=== PATIENT | female | born 1980 | race Caucasian/White ===

== ENCOUNTER 2023-07-05 07:13 | Outpatient (OUT) | payer OTHER, SELFPAY ==
--- NOTE | 2023-07-05 07:15 | MM_ITS ---
Patient Name: BRANDON BENAVIDEZ MR#: [id number] : 1980 Exam Date: 07/05/2023 Ordering Doctor: [facility] REPORT PROCEDURE: MM TOMOSYNTHESIS SCREENING BI COMPARISON: MG MAMM LEANDRO DIAG W CAD, 01/04/2020. INDICATIONS: screening Calculator Name NCI Breast Cancer Risk Assessment Tool 5 Year Breast Cancer Risk 0.50% Lifetime Breast Cancer Risk 9.00% Personal Breast Cancer No Personal Ovarian Cancer No Treatments None Family Cancers Aunt-maternal with breast cancer at age ~42; Mother with lung cancer at age 52; Aunt-maternal with lung cancer at age 49. LOCATION: [facility] BREAST COMPOSITION: Heterogeneously dense,which may obscure small masses. FINDINGS: DIAGNOSTIC CATEGORY 2--BENIGN FINDING. NO CHANGE FROM COMPARISON. Scattered benign-appearing nodules are present. Scattered benign-appearing calcifications are present. Scattered benign-appearing lymph nodes are present. RIGHT BREAST: No significant suspicious finding. LEFT BREAST: No significant suspicious finding. RECOMMENDATIONS: ROUTINE MAMMOGRAM AND CLINICAL EVALUATION IN 12 MONTHS. PLEASE NOTE: A NORMAL MAMMOGRAM DOES NOT EXCLUDE THE POSSIBILITY OF BREAST CANCER. A CLINICALLY SUSPICIOUS PALPABLE LUMP SHOULD BE BIOPSIED. Dictated by: Florentin Bob MD on 07/05/2023 at 08:37 Approved by: Florentin Bob MD on 07/05/2023 at 08:38
== END 2023-07-05 07:14 | disposition home or self-care (01) ==
LOC: MAMMO 07:13
PROVIDERS: PCP Family Medicine; Visit Provider Family Medicine
DX: Z12.31 Encounter for screening mammogram for malignant neoplasm of breast (principal); Z80.3 Family history of malignant neoplasm of breast; Z80.1 Family history of malignant neoplasm of trachea, bronchus and lung
CPT/HCPCS: 77063; 77067

== ENCOUNTER 2023-08-05 19:11 | Emergency (ER) | payer OTHER, SELFPAY ==
[2023-08-05] VITALS (15 sets, daily range): BP systolic 122–150; BP diastolic 77–94; PULSE 72–99; TEMP 36.8; O2SAT 94–100; BMI 32.4
--- OUTSIDE RECORDS SUMMARY | 2023-08-05 19:24 | XMS_ITS | CCD ---
Author Organization [facility] Care Team Providers Care Transport Engineer Name Role Phone DR SUSAN US Attending Unavailable ABEBA, DR DAVIS Consulting Unavailable DR SUSAN US Admitting Unavailable FRIDA GARSIA Primary Care Unavailable MD Frida Garsia Primary Care Provider [phone] MD Steven Rose Attending Provider Frida Garsia MD Primary Care Provider [phone] Frida Garsia MD Unavailable [phone] FRIDA GARSIA Attending Unavailable FRIDA GARSIA Referring Unavailable MD Frida Garsia Attending Provider Steven Rose Attending Unavailable Frida Garsia Primary Care Unavailable Steven Rose Admitting Unavailable Frida Garsia Primary Care Unavailable Cheryle Day Admitting Unavailable Cheryle Day Attending Unavailable Frida Garsia Admitting Unavailable Frida Garsia Primary Care Unavailable Frida Garsia Attending Unavailable Frida Garsia MD Unavailable Frida Garsia MD Primary Care Provider CATHI DIANE Attending Unavailable FRIDA GARSIA Referring Unavailable FRIDA GARSIA Primary Care Unavailable Medications Current Medications Medication Drug Class(es) Dates Sig (Normalized) Sig (Original) hydroCHLOROthiazide 25 mg oral tablet (4 sources) Thiazide Diuretic Start: 3 take 1 tablet by mouth once daily in the morning hydroCHLOROthiazide (HYDRODiuril) 25 MG tablet Indications: Hypertension, unspecified type (CMS/HCC) TAKE 1 TABLET BY MOUTH EVERY DAY IN THE MORNING 30 tablet 11 10/24/2022 Active hydroCHLOROthiazide 12.5 mg / olmesartan medoxomil 20 mg oral tablet (2 sources) Thiazide Diuretic, Angiotensin 2 Receptor Paco Start: 4 take 1 tablet by mouth in the morning olmesartan-hydroCHLORO thiazide (Benicar HCT) 20-12.5 MG tablet Indications: Hypertension, unspecified type (CMS/HCC) Take 1 tablet by mouth in the morning. 90 tablet 3 06/15/2023 Active varenicline 1 mg oral tablet (4 sources) Partial Cholinergic Nicotinic Agonist Start: 4 take 0.5 tablet by mouth in the morning varenicline (Chantix) 1 MG tablet Indications: Tobacco abuse Take 0.5 tablets (0.5 mg) by mouth in the morning and 0.5 tablets (0.5 mg) before bedtime. Take with full glass of water.. 60 tablet 0 06/15/2023 Active Start: 06-15-2023 End: 2023 take 1 tablet by mouth in the morning varenicline (Chantix) 1 MG tablet Indications: Tobacco abuse Take 1 tablet (1 mg) by mouth in the morning and 1 tablet (1 mg) before bedtime. Take with full glass of water.. 60 tablet 1 06/15/2023 2023 Active Completed/Discontinued Medications Medication Drug Class(es) Dates Sig (Normalized) Sig (Original) acyclovir 0.05 mg/mg topical ointment (5 sources) Herpesvirus Nucleoside Analog DNA Polymerase Inhibitor, Herpes Simplex Virus Nucleoside Analog DNA Polymerase Inhibitor, Herpes Zoster Virus Nucleoside Analog DNA Polymerase Inhibitor Start: 03-01-2023 acyclovir (ZOVIRAX) 5 % ointment Apply to affected area as needed. 0 03/01/2023 Active Comment on above: Apply to affected ar ea as needed. aspirin 81 mg oral tablet (1 source) Platelet Aggregation Inhibitor, Nonsteroidal Anti-inflammatory Drug take 2 capsules by mouth once daily aspirin 81 mg cap Take 162 mg by mouth once daily. 0 Active Comment on above: Take 162 mg by mouth once daily. atorvastatin 40 mg oral tablet (1 source) HMG-CoA Reductase Inhibitor Start: 07-01-2023 take 1 tablet by mouth once daily in the morning atorvastatin (LIPITOR) 40 mg tablet Take 1 tablet by mouth every morning. 0 07/01/2023 Active Comment on above: Take 1 tablet by edward th every morning. dicyclomine hydrochloride 20 mg oral tablet (5 sources) Anticholinergic Start: 12-15-2022 dicyclomine (BENTYL) 20 mg tablet Take 20 mg by mouth as needed. 0 12/15/2022 Active Comment on above: Take 20 mg by mouth as needed. ibuprofen 800 mg oral tablet (5 sources) Nonsteroidal Anti-inflammatory Drug Start: 11-26-2022 ibuprofen (MOTRIN) 800 mg tablet Take 800 mg by mouth as needed. 0 11/26/2022 Active Comment on above: Take 800 mg by mouth as needed. LORazepam 1 mg oral tablet (5 sources) Benzodiazepine Start: 09-30-2021 LORazepam (ATIVAN) 1 mg tablet Take 1 mg by mouth as needed. 0 09/30/2021 Active Comment on above: Take 1 mg by mouth a s needed. valACYclovir 1000 mg oral tablet (5 sources) Herpesvirus Nucleoside Analog DNA Polymerase Inhibitor, Herpes Simplex Virus Nucleoside Analog DNA Polymerase Inhibitor, Herpes Zoster Virus Nucleoside Analog DNA Polymerase Inhibitor Start: 03-17-2023 valACYclovir (VALTREX) 1 gram tablet Take 1 tablet by mouth as needed. 0 03/17/2023 Active Comment on above: Take 1 tablet by edward th as needed. Problems Active Problems Problem Classification Problem Date Documented Da te Episodic/Chronic Administrative/social admission (2 sources) Counseling procedure with explicit context; Translations: [Tobacco abuse counseling] 06-15-2023 Episodic Anxiety disorders (4 sources) Anxiety; Translations: [Anxiety disorder, unspecified] Onset: 10-01-2022 10-01-2022 Chronic Chronic obstructive pulmonary disease and bronchiectasis (2 sources) Centriacinar emphysema; Translations: [Centrilobular emphysema] Onset: 08-02-2023 08-02-2023 Chronic Essential hypertension (8 sources) Hypertensive disorder; Translations: [Essential (primary) hypertension] Onset: 10-01-2022 10-01-2022 Chronic Immunizations and screening for infectious disease (1 source) Encounter for screening for human papillomavirus (HPV); Translations: [ENC SCREENING HUMAN PAPILLOMAVIRUS] Onset: 03-09-2022 Episodic Miscellaneous mental health disorders (4 sources) Primary insomnia; Translations: [Primary insomnia] Onset: 10-01-2022 10-01-2022 Chronic Mood disorders (2 sources) Depressive disorder; Translations: [Depression, unspecified depression type] Onset: 08-02-2023 08-02-2023 Chronic Occlusion or stenosis of precerebral arteries (4 sources) Left carotid artery occlusion; Translations: [Occlusion and stenosis of left carotid artery] Onset: 08-02-2023 07-14-2023 Chronic Other gastrointestinal disorders (1 source) Personal history of other diseases of the digestive system; Translations: [Personal history of other diseases of the digestive system] Onset: 04-09-2023 Episodic Other lower respiratory disease (6 sources) Dyspnea; Translations: [Shortness of breath] Onset: 10-01-2022 10-01-2022 Episodic Other lower respiratory disease (1 source) Shortness of breath; Translations: [Shortness of breath] Onset: 06-24-2023 Episodic Other nervous system disorders (4 sources) Chronic pain; Translations: [Other chronic pain] Onset: 10-01-2022 10-01-2022 Chronic Other nutritional; endocrine; and metabolic disorders (4 sources) Obese class I; Translations: [Obesity, unspecified] Onset: 10-01-2022 10-01-2022 Chronic Other screening for suspected conditions (not mental disorders or infectious disease) (5 sources) Encounter for screening for malignant neoplasm of cervix; Translations: [Abnormal findings on diagnostic imaging of other specified body structures] Onset: 03-06-2022 Episodic Other upper respiratory infections (4 sources) Chronic sinusitis; Translations: [Chronic sinusitis, unspecified] Onset: 10-01-2022 10-01-2022 Chronic Regional enteritis and ulcerative colitis (8 sources) Crohn's disease; Translations: [Crohn's disease, unspecified, with unspecified complications] Onset: 10-01-2022 10-01-2022 Chronic Residual codes; unclassified (6 sources) Family history of aneurysm of artery; Translations: [Family history of ischemic heart disease and other diseases of the circulatory system] Onset: 10-01-2022 10-01-2022 Episodic Residual codes; unclassified (4 sources) Tobacco user; Translations: [Tobacco use] Onset: 08-02-2023 06-15-2023 Episodic Past or Other Problems Problem Classification Problem Date Documented Da te Episodic/Chronic Mycoses (4 sources) Mycosis; Translations: [Candidiasis, unspecified] Onset: 10-01-2022 Resolved: 10-01-2022 10-01-2022 Episodic Other and unspecified benign neoplasm (4 sources) Tubular adenoma ; Translations: [Benign neoplasm, unspecified site] Onset: 10-01-2022 10-01-2022 Episodic Viral infection (4 sources) Genital warts; Translations: [Anogenital (venereal) warts] Onset: 10-01-2022 10-01-2022 Episodic Results Test Name Value Interpretation Reference Range Facility CNOVon 08-02-2023 CNOV Office Visit (VASSMN ) SOCORRO GARCIA ([id number]) 1980 F Date Time Provider Department 08/02/23 10:30 AM CATHI DIANE During your visit today, we recorded the following information about you: Temperature Pulse Respiration Blood pressure 98.1 degrees 78/minute 14/minute 134/88 Weight Height 80.2 kg 1.619 m Cathi Diane MD 08/02/2023 10:32 AM Addendum [facility] DEPARTMENT OF VASCULAR SURGERY OUTPATIENT VISIT DATE August 02, 2023 OUTPATIENT VISIT TYPE CONSULTATION SERVICE DATE: 08/02/2023 SERVICE TIME: 10:06 AM PRIMARY CARE PHYSICIAN: Frida Garsia MD, MD REFERRING PROVIDER: Frida Garsia MD ([facility]) [address] [place] [phone] Consult requested for an opinion regarding the evaluation and treatment of the above. My final impression and recommendations will be communicated back to the requesting physician by way of the shared medical record or letter via [place] mail. CHIEF COMPLAINT: left carotid occlusion HISTORY OF PRESENT ILLNESS: Vascular consultation at the request of Dr. Frida Garsia. A copy of this consultation note will be provided to the requesting physician by way of shared Medical record or letter to requesting physician via US mail. Ms. Garcia is a 42 year old female who is seen today for Left carotid occlusion she has hypertension depression history of Crohn's disease.. She has a family history of brain aneurysms. And had difficulty control hypertension's her family doctor got a MRA of the head with contrast with this diagnosed a asymptomatic left internal carotid occlusion. She denies any strokes mini strokes or amaurosis fugax. She does have hypertension. She also is on a statin on 40 of Lipitor. PAST MEDICAL HISTORY Diagnosis Date Centrilobular emphysema (HCC) 08/02/2023 Crohn's disease without complication (HCC) 08/02/2023 Depression 08/02/2023 Left carotid artery occlusion 08/02/2023 Stenosis of right carotid artery 08/02/2023 Tobacco abuse 08/02/2023 PAST SURGICAL HISTORY Procedure Laterality Date PAST SURGICAL HISTORY OF 2015 hysterectom PAST SURGICAL HISTORY OF 2009 tonsillectomy and adenoids SOCIAL HISTORY: Social History Tobacco Use Smoking status: Former Packs/day: 1.00 Years: 28.00 Additional pack years: 0.00 Total pack years: 28.00 Types: Cigarettes Start date: 05/03/1995 Quit date: 07/02/2023 Years since quittin.0 Smokeless tobacco: Never Substance Use Topics Alcohol use: Yes Comment: socially Drug use: Not Currently Types: Marijuana FAMILY HISTORY Problem Relation Age of Onset other (htn) Brother FATHER BRAIN ANEURYSM MEDICATIONS: acyclovir (ZOVIRAX) 5 % ointment Apply to affected area as needed. atorvastatin (LIPITOR) 40 mg tablet Take 1 tablet by mouth every morning. dicyclomine (BENTYL) 20 mg tablet Take 20 mg by mouth as needed. ibuprofen (MOTRIN) 800 mg tablet Take 800 mg by mouth as needed. LORazepam (ATIVAN) 1 mg tablet Take 1 mg by mouth as needed. valACYclovir (VALTREX) 1 gram tablet Take 1 tablet by mouth as needed. aspirin 81 mg cap Take 162 mg by mouth once daily. ALLERGIES: ALLERGIES No Known Allergies REVIEW of SYSTEM: Constitutional: No weight loss, malaise or fevers. HEENT: Negative for frequent or significant headaches Respiratory: Negative for cough, wheezing, +shortness of breath Cardiovascular: Negative for chest pain, leg swelling or palpitations Gatrointestinal: Negative for abdominal discomfort, blood in stools or black stools or change in bowel habits Genitourinary: No history of dysuria, frequency, or incontinence Musculoskeletal: Negative for joint pain or swelling, back pain or muscle pain Endocrine: Negative for cold or heat intolerance, polyuria, polydipsia and goiter Hematology/Lymphatic: Negative for prolonged bleeding, bruising easily or swollen nodes Neurologic: No history or headaches, syncope, paralysis, seizures or tremors Integumentary: Negative for lesions, rash, and itching. PHYSICAL EXAM: VITALS: BP 134/88[LEFT ARM[ Pulse 78 Temp (Src) 98.1 (Oral) Resp 14 Ht 5' 3.75 [with 1 ankle boots on cc[ (1.62m) Wt 176 lb 14.4 oz (80.2kg) SpO2 98% BMI 30.61 kg/(m2). General: WDWN in NAD Skin: No lesions; normal color, turgor HEENT: NCAT PERRLA EOMI No icterus or adenopathy Carotid: bruits NONE Pulmonary: Clear to percussion and auscultation Coronary: Normal S1, S2; no murmurs, rubs or gallops Abdomen: No organomegaly, normal bowel sounds, non-tender Extremities: Normal range of motion, no edema or ulceration Vascular: 2+ Pulses throughout carotid, brachial radial, femoral, popliteal, PT, DP Neurologic: Awake, alert and oriented. Normal and symmetrical M/S function. Diagnostic tests reviewed for today's visit: 06/18/2023 MR angiogram head There is complete occlusion of the left intracranial ca (more content not included)... Normal [facility] Chung 07-28-2023 FABIANN Telephone (elvira) SOCORRO GARCIA ([id number]) 1980 F Date Time Provider Department 07/28/23 KALYAN GUZMAN During your visit today, we recorded the following information about you: Brenda Warren 07/28/2023 9:23 AM Signed Study TItle: Risk Assessment of Stroke Using Non-Invasive Ultrasonic Backscatter from Carotid Plaque (RUNUP) IRB#: [id number] PI: Destiny Ortiz, PhD Phone#: [phone] COORDINATOR/Research Nurse/Human Resource Intern: Kalyan Guzman, PhD or Brenda Warren or [phone] Pager: [phone] Recruitment Telephone Contact to introduce the study and discuss mailed study information to the patient prior to their upcoming Duplex Ultrasound Carotid Stenosis office visit. Informed the patient they may be able to join this research study when they come in for their scheduled ultrasound to look at the narrowing in their carotid artery. The subject did not decline participating and ICF mailed for review? Yes The study team will review the study with you when you come in for your ultrasound exam and you will be able to decide at that time if you wish to join the study. In the meantime, if there are any questions feel free to contact me at [phone]. REMINDER Confirm the scheduled date and time of their Ultrasound Exam with the subject. Brenda Warren Allergies As of Date: 07/28/2023 (Not on File) Date Reviewed: Never Reviewed Reason for Visit: Research [293] Problem List As Of Date: 07/28/2023 (None) Encounter Status:Closed by BRENDA WARREN on 07/28/23 [facility] Chung 07-13-2023 CNPN Telephone (PODCCP) SOCORRO GARCIA ([id number]) 1980 F Date Time Provider Department 07/13/23 NO PCP PODCCP During your visit today, we recorded the following information about you: Marina Brown 07/13/2023 10:08 AM Signed Reason for call: Pt called and she would like to schedule an appt with Dr Cathi Diane. Home and cell number: [phone] Diagnosis: Oclusion of left carotid artery Marina Thompsonrobert Mcmillan Edda Rod 07/14/2023 1:26 PM Signed Carter sinclair This patient states there was an ultrasound done at [facility], under Dr. Abernathy, can you please obtain images. Patient also states had a mri at [facility]. Can you please request images from both facilities? THX Allergies As of Date: 07/13/2023 (Not on File) Date Reviewed: Never Reviewed Reason for Visit: Appointment [186] Problem List As Of Date: 07/13/2023 (None) Encounter Status:Closed by MARINA BROWN on 07/13/23 Normal [facility] US carotid doppler BIon 06-04 US carotid doppler BI [facility] [place] [address] [place] [address] Ultrasound Report Signed Patient: Socorro Garcia MR#: [id number] : 1980 Acct:[id number] Age/Sex: 42 / F ADM Date: 07/01/23 Loc: [facility] Room: Type: [facility] Attending Dr: Cheryle Day DIAGNOSTIC ASSISTANT-C Ordering Provider: Cheryle Day APRN Date of Service: 07/01/23 US/US carotid doppler BI: R93.89 - Abnormal findings on diagnostic imaging of other... Copies to: Cheryle Day APRN CAROTID DUPLEX INDICATION: Left carotid occlusion PROCEDURE: Color-flow duplex scanning is used to interrogate the extracranial carotid arterial system, as well as both vertebral arteries. The right internal carotid artery shows a highest peak systolic velocity of 118 with an end-diastolic velocity of 45 cm per second. The velocities of the right common carotid artery are 140 peak systolic and 39 end-diastolic. The peak systolic velocity ratio of the internal to the common carotid artery is 0.84. The right vertebral artery is patent with antegrade flow. The left internal carotid artery is occluded. This was confirmed with an MRI study. US/US carotid doppler BI IMPRESSION: NO HEMODYNAMICALLY SIGNIFICANT STENOSIS OF THE RIGHT EXTRACRANIAL INTERNAL CAROTID ARTERY. BOTH VERTEBRAL ARTERIES ARE PATENT WITH ANTEGRADE FLOW. The left internal carotid artery is occluded. Impression dictated by: Mane Abernathy MD07/01/2023 2:32 PM Dictation Location: [place] [address] Tech: Jennyfer Lai Transcribed By: ALFONSO 07/01/23 1432 Dictated By: Mane Abernathy MD 07/01/23 1428 Signed By: 07/01/23 1432 Normal [facility] echo transthoracicon [facility] echo transthoracic [facility] [place] [address] [place] [address] Echocardiogram Signed Patient: Socorro Garcia MR#: [id number] : 1980 Acct:[id number] Age/Sex: 42 / F ADM Date: 06/24/23 Loc: Room: Type: [facility] Attending Dr: Frida Garsia MD Ordering Provider: Frida Garsia MD Date of Service: 06/24/23/ [facility] echo transthoracic: SOB. Copies to: MD Rakan Singleton MD Weight: 180 lb Performed By: Jess Nelson RDCS BSA: 1.8 m2 BP: 133/88 mmHg HR: 68 Reason For Study: SOB. History: No cardiac history per patient Interpretation Summary The left ventricular size, thickness and function are normal Ejection Fraction = 60-65%. There is trace tricuspid regurgitation. Procedure/Quality: A two-dimensional transthoracic echocardiogram with color flow and Doppler was performed. The study was technically good in quality. Left Ventricle: The left ventricular size, thickness and function are normal. Ejection Fraction = 60-65%. No left ventricular thrombus or mass is seen. Left Atrium: The left atrium appears normal in size. The atrial septum appears normal. Right Atrium: The right atrium appears normal in size. Right Ventricle: The right ventricular size, thickness and function are normal. Aortic Valve: The aortic valve is normal in structure and function. Mitral Valve: The mitral valve is normal in structure. Tricuspid Valve: The tricuspid valve is normal in structure. There is trace tricuspid regurgitation. Pulmonic Valve: The pulmonic valve is not well visualized. Arteries: The aortic root is normal size. The aortic arch was visualized and no abnormalities were seen. Pericardium/Pleura: No pericardial effusion seen. There is no pleural effusion. IVC/Hepatic Veins: The inferior vena cava is normal in size, with a normal collapsibility index. Measurements with Normals IVSd: 0.88 cm (0.7-1.1 cm)LVIDd: 4.6 cm (3.7-5.4 cm) LVPWd: 0.94 cm (0.7-1.1 cm)LVIDs: 3.0 cm (2.3-3.6 cm) LA dimension: 2.9 cm (2.3-4.0 cm)Ao root diam: 2.9 cm(2.0-3.6 cm) asc Aorta Diam: 3.1 cm(2.1-3.4cm) Doppler with Normals RVSP(TR): 24.6 mmHg (18-35mmHg) LV V1 max: 124.2 cm/sec (0.7-1.7m/s)MV E max fritz: 80.0 cm/sec(0.8-1.3m/s) MV A max fritz: 60.6 cm/sec(0.0-0.0m/s) MV E/A: 1.3 (<1.5) MMode/2D Measurements Calculations RVDd: 2.5 cm FS: 34.1 % Ao root area: LVOT diam: 2.0 cm TAPSE: 1.9 cm EDV(Teich): 6.6 cm2 LVOT area: 3.2 cm2 RV S Fritz: 95.7 ml 13.7 cm/sec ESV(Teich): 35.2 ml EF(Teich): 63.2 % __ LVLd ap4: 8.1 cm SV(MOD-sp4): LAV(MOD-sp4): LA A2 area: 11.7 cm2 EDV(MOD-sp4): 50.0 ml 15.1 ml 82.1 ml LAV(MOD-sp2): LA A4 area: 9.1 cm2 LVLs ap4: 6.7 cm 21.2 ml LA length (vol): ESV(MOD-sp4): 4.6 cm 32.1 ml LA vol: 19.7 ml EF(MOD-sp4): 60.9 % LA vol index: 10.9 ml/m2 Doppler Measurements Calculations MV dec time: E/E' lat: 4.6 MV dec slope: Ao V2 max: 0.23 sec E/E' med: 6.9 135.1 cm/sec 348.4 cm/sec2 Ao max P.3 mmHg Ao mean P.1 mmHg Ao V2 mean: 96.1 cm/sec Ao V2 VTI: 24.9 cm SHARMILA(I,D): 2.9 cm2 SHARMILA(V,D): 2.9 cm2 __ LV V1 max PG: TV max PG: TR max fritz: 6.2 mmHg 22.0 mmHg 232.1 cm/sec LV V1 mean PG: TR max P.6 mmHg 3.6 mmHg RAP systole: 3.0 mmHg LV V1 mean: 89.0 cm/sec LV V1 VTI: 22.6 cm Transcribed By: SCV Performed At: 06/24/23 0752 Signed By: Rakan Grijalva MD 06/24/23 1221 [facility] MR ANGIOGRAM HEAD WO IV CONT Fazal 06-18-2023 MR ANGIOGRAM HEAD WO IV CONTRAST CLINICAL HISTORY: family hx of brain aneurysm COMPARISON: NONE. FINDINGS: The right cavernous carotid artery supraclinoid carotid artery and carotid bifurcation is within normal limits. There is no flow in the left intracranial carotid artery to the level of the bifurcation. There is faint reconstitution of flow in the distal A1 segment and M1 segment presumably through collaterals. M2 and M3 segments are within normal limits. The posterior circulation demonstrates codominant vertebral arteries. The basilar artery is within normal limits and the posterior cerebral arteries are unremarkable. IMPRESSION: There is complete occlusion of the left intracranial carotid artery with reconstitution through collaterals of the left A1 and M1 segments. ELECTRONICALLY SIGNED BY: Matteo Juárez MD Normal Not Available PAP ACOG PANEL 2: 30 to 65on 03-13-2022 . . Normal [facility] Comment on above: Result Comment: Perf ormed at: BA Performed By: #### [id number] #### [facility] [address] [place] [address] Dr. Devi Ji Age Gdln ACOG Testing 30-65 [facility] Comment on above: Performed By: #### [id number] #### [facility] [address] [place] [address] Dr. Devi Ji DIAGNOSIS: Comment Normal [facility] Comment on above: Result Comment: NEGA TIVE FOR INTRAEPITHELIAL LESION OR MALIGNANCY. Performed at: BA Performed By: #### [id number] #### [facility] [address] [place] [address] Dr. Devi Ji HPV Aptima Negative Normal Negative [facility] Comment on above: Result Comment: This nucleic acid amplification test detects fourteen high-risk HPV types (16,18,31,33,35,39,45,51,52,56,58,59,66,68) without differentiation. Performed at: =G Performed By: #### [id number] #### [facility] [address] [place] [address] Dr. Devi Ji HPV Genotype Reflex Comment Normal [facility] Comment on above: Result Comment: Crit eria not met, HPV Genotype not performed. Performed at: BA Performed By: #### [id number] #### [facility] [address] [place] [address] Dr. Devi Ji Methodology: Comment Normal [facility] Comment on above: Result Comment: This liquid based ThinPrep(R) pap test was screened with the use of an image guided system. Performed at: WB Performed By: #### [id number] #### [facility] [address] [place] [address] Dr. Devi Ji Note: Comment Normal [facility] Comment on above: Result Comment: The Pap smear is a screening test designed to aid in the detection of premalignant and malignant conditions of the uterine cervix. It is not a diagnostic procedure and should not be used as the sole means of detecting cervical cancer. Both false-positive and false-negative reports do occur. . Performed at: WB Performed By: #### [id number] #### [facility] [address] [place] [address] [address] Devi Ji Performed by: Comment Normal [facility] Comment on above: Result Comment: Tamie Greene, Lpta (ASCP) Performed at: BA Performed By: #### [id number] #### [facility] [address] [place] [address] [address] Devi Ji Specimen adequacy: Comment Normal [facility] Comment on above: Result Comment: Sati sfactory for evaluation. No endocervical component is identified. Performed at: BA Performed By: #### [id number] #### [facility] [address] [address] [address] Devi Ji Patient Letter FTon 2021 Patient Letter FT December 24, 2021 SOCORRO GARCIA [address] [place], [place] [id number] SOCORRO GARCIA 1980 Dear Socorro, This is a SECOND ATTEMPT to remind you that you are due for an appointment with [facility] [employer] [facility]. Please contact our office at [phone] to schedule an appointment at your earliest convenience. Thank you, [facility] Reminderson 12-24-2021 Reminders - From: Haley Mortensen To: [facility] - Reminders/Recalls; Sent: 11/19/2021 12:44:29 EDT Show up: 11/19/2021 12:45:00 EDT Subject: Ambulatory Reminder Reminder/Recall 5 year colon edithfity 10/22 first recall letter second recall letter Normal [facility] Patient Letter FTon 2021 Patient Letter FT November 20, 2021 SOCORRO GARCIA [address] [place] [id number] SOCORRO GARCIA 1980 Dear Socorro, This is a reminder that you are due for an appointment with [facility]. Please contact our office at [phone] to schedule an appointment at your earliest convenience. Thank you, [facility] Normal [facility] C-Reactive Proteinon 022 CRP IV 0.6 mg/dl Normal <5.0 [facility] Optical Systems Engineer Comment on above: Performed By: #### C BCAD, CMP, LIPD, FERR, TSH reflex FT4, CRP #### [facility] [address], [place] [id number] Complete Blood Count with Au to Diffon 05-29-2021 Basophils (Bld) [#/Vol] 0.03 10*3/uL Normal 0.00-0.20 [facility] Optical Systems Engineer Comment on above: Performed By: #### C BCAD, CMP, LIPD, FERR, TSH reflex FT4, CRP #### [facility] [address], [place] [id number] Basophils/100 WBC (Bld) 0.4 % Normal [facility] Optical Systems Engineer Comment on above: Performed By: #### C BCAD, CMP, LIPD, FERR, TSH reflex FT4, CRP #### [facility] [address] [place], [place] [id number] Eosinophils (Bld) [#/Vol] 0.04 10*3/uL Normal 0.02-0.50 [facility] Optical Systems Engineer Comment on above: Performed By: #### C BCAD, CMP, LIPD, FERR, TSH reflex FT4, CRP #### [facility] [address] [facility] [place] [id number] Eosinophils/100 WBC (Bld) 0.5 % Normal [facility] Optical Systems Engineer Comment on above: Performed By: #### C BCAD, CMP, LIPD, FERR, TSH reflex FT4, CRP #### [facility] [address] [facility] [place] [id number] Erythrocyte distribution width (RBC) [Ratio] 12.9 % Normal 11.0-15.0 [facility] Optical Systems Engineer Comment on above: Performed By: #### C BCAD, CMP, LIPD, FERR, TSH reflex FT4, CRP #### [facility] [address] [facility] [place] [place] [id number] Hematocrit (Bld) [Volume fraction] 46.9 % Normal 35.0-47.0 [facility] Specialist Comment on above: Performed By: #### C BCAD, CMP, LIPD, FERR, TSH reflex FT4, CRP #### [facility] [address], [place] [id number] Hemoglobin (Bld) [Mass/Vol] 15.5 g/dL Normal 11.6-15.5 [facility] Specialist Comment on above: Performed By: #### C BCAD, CMP, LIPD, FERR, TSH reflex FT4, CRP #### [facility] [address], [place] [id number] Lymphocytes (Bld) [#/Vol] 1.8 10*3/uL Normal 0.9-3.9 [facility] Specialist Comment on above: Performed By: #### C BCAD, CMP, LIPD, FERR, TSH reflex FT4, CRP #### [facility] [address], [place] [id number] Lymphocytes/100 WBC (Bld) 22.8 % Normal [facility] Specialist Comment on above: Performed By: #### C BCAD, CMP, LIPD, FERR, TSH reflex FT4, CRP #### [facility] [address], [place] [id number] MCH (RBC) [Entitic mass] 30.6 pg Normal 27.0-33.0 [facility] Specialist Comment on above: Performed By: #### C BCAD, CMP, LIPD, FERR, TSH reflex FT4, CRP #### [facility] [address], [place] [id number] MCHC (RBC) [Mass/Vol] 33.0 g/dL Normal 32.0-36.0 [facility] Specialist Comment on above: Performed By: #### C BCAD, CMP, LIPD, FERR, TSH reflex FT4, CRP #### [facility] [address], [place] [id number] MCV (RBC) [Entitic vol] 93 fL Normal 80-100 [facility] Specialist Comment on above: Performed By: #### C BCAD, CMP, LIPD, FERR, TSH reflex FT4, CRP #### [facility] [address], [place] [id number] Monocytes (Bld) [#/Vol] 0.5 10*3/uL Normal 0.2-0.9 [facility] Specialist Comment on above: Performed By: #### C BCAD, CMP, LIPD, FERR, TSH reflex FT4, CRP #### [facility] [address], [place] [id number] Monocytes/100 WBC (Bld) 6.7 % Normal [facility] Specialist Comment on above: Performed By: #### C BCAD, CMP, LIPD, FERR, TSH reflex FT4, CRP #### [facility] [address], [place] [id number] Neutrophils (Bld) [#/Vol] 5.6 10*3/uL Normal 1.5-7.8 [facility] Specialist Comment on above: Performed By: #### C BCAD, CMP, LIPD, FERR, TSH reflex FT4, CRP #### [facility] [address], [place] [id number] Neutrophils/100 WBC (Bld) 69.4 % Normal [facility] Specialist Comment on above: Performed By: #### C BCAD, CMP, LIPD, FERR, TSH reflex FT4, CRP #### [facility] [address], [place] [id number] Platelet mean volume (Bld) [Entitic vol] 10.50 fL Normal 7.50-12.50 [facility] Comment on above: Performed By: #### C BCAD, CMP, LIPD, FERR, TSH reflex FT4, CRP #### [facility] [address], [place] [id number] Platelets (Bld) [#/Vol] 294 10*3/uL Normal 140-400 [facility] Specialist Comment on above: Performed By: #### C BCAD, CMP, LIPD, FERR, TSH reflex FT4, CRP #### [facility] [address], [place] [id number] RBC (Bld) [#/Vol] 5.07 10*6/uL Normal 3.90-5.[address] [facility] Specialist Comment on above: Performed By: #### C BCAD, CMP, LIPD, FERR, TSH reflex FT4, CRP #### [facility] [address], [place] [id number] RDW-SD 43.8 fL Normal 37.0-50.0 [facility] Optical Systems Engineer Comment on above: Performed By: #### C BCAD, CMP, LIPD, FERR, TSH reflex FT4, CRP #### [facility] [address], [place] [id number] WBC (Bld) [#/Vol] 8.1 10*3/uL Normal 3.8-11.0 [facility] Optical Systems Engineer Comment on above: Performed By: #### C BCAD, CMP, LIPD, FERR, TSH reflex FT4, CRP #### [facility] [address], [place] [id number] Comprehensive Metabolic Pane [facility] 05-29-2021 Albumin [Mass/Vol] 4.7 g/dL Normal 3.6-5.1 [facility]n [place] Optical Systems Engineer Comment on above: Performed By: #### C BCAD, CMP, LIPD, FERR, TSH reflex FT4, CRP #### [facility] [address], [place] [id number] Albumin/Globulin [Mass ratio] 1.9 {ratio} Normal 1.0-2.5 [facility] Optical Systems Engineer Comment on above: Performed By: #### C BCAD, CMP, LIPD, FERR, TSH reflex FT4, CRP #### [facility] [address], [place] [id number] ALP [Catalytic activity/Vol] 92 U/L Normal 35-119 [facility] Optical Systems Engineer Comment on above: Performed By: #### C BCAD, CMP, LIPD, FERR, TSH reflex FT4, CRP #### [facility] [address], [place] [id number] ALT [Catalytic activity/Vol] 13 U/L Normal 6-33 [facility] Optical Systems Engineer Comment on above: Result Comment: 04/02 Female reference range changed. Performed By: #### C BCAD, CMP, LIPD, FERR, TSH reflex FT4, CRP #### [facility] [address], [place] [id number] Anion gap [Moles/Vol] 17 mmol/L Normal 12-20 [facility] Comment on above: Result Comment: Effbrandon ctive 05/08/2019 reference range changed. Performed By: #### C BCAD, CMP, LIPD, FERR, TSH reflex FT4, CRP #### [facility] [address], [place] [id number] AST [Catalytic activity/Vol] 15 U/L Normal 9-34 [facility] Comment on above: Performed By: #### C BCAD, CMP, LIPD, FERR, TSH reflex FT4, CRP #### [facility] [address], [place] [id number] BUN/CREA 16 Ratio Normal 6-22 [facility] Comment on above: Performed By: #### C BCAD, CMP, LIPD, FERR, TSH reflex FT4, CRP #### [facility] [address], [place] [id number] Calcium [Mass/Vol] 9.9 mg/dL Normal 8.6-10.2 [facility] Comment on above: Performed By: #### C BCAD, CMP, LIPD, FERR, TSH reflex FT4, CRP #### [facility] [address], [place] [id number] Chloride [Moles/Vol] 103 mmol/L Normal 98-107 [facility] Comment on above: Performed By: #### C BCAD, CMP, LIPD, FERR, TSH reflex FT4, CRP #### [facility] [address], [place] [id number] CO2 [Moles/Vol] 23 mmol/L Normal 20-31 [facility] Comment on above: Performed By: #### C BCAD, CMP, LIPD, FERR, TSH reflex FT4, CRP #### [facility] [address], [place] [id number] Creatinine [Mass/Vol] 0.6 mg/dL Normal 0.6-1.4 [facility] Comment on above: Performed By: #### C BCAD, CMP, LIPD, FERR, TSH reflex FT4, CRP #### [facility] [address], [place] [id number] eGFRAA 125 mL/min/1.73m2 Normal >60 [facility] Optical Systems Engineer Comment on above: Performed By: #### C BCAD, CMP, LIPD, FERR, TSH reflex FT4, CRP #### [facility] [address], [place] [id number] eGFRNAA 103 mL/min/1.73m2 Normal >60 [facility] Optical Systems Engineer Comment on above: Performed By: #### C BCAD, CMP, LIPD, FERR, TSH reflex FT4, CRP #### [facility] [address], [place] [id number] Globulin (S) [Mass/Vol] 2.5 g/dL Normal 1.9-3.7 [facility] Optical Systems Engineer Comment on above: Performed By: #### C BCAD, CMP, LIPD, FERR, TSH reflex FT4, CRP #### [facility] [address], [place] [id number] Glucose [Mass/Vol] 81 mg/dL Normal 65-99 Deejay garcia [place] Optical Systems Engineer Comment on above: Result Comment: For FASTING Glucose --- ADA reference ranges: Normal 65-99 mg/dl Prediabetes 100-125 Diabetes >/= 126 Performed By: #### C BCAD, CMP, LIPD, FERR, TSH reflex FT4, CRP #### [facility] [address], [place] [id number] Potassium [Moles/Vol] 4.9 mmol/L Normal 3.5-5.5 [facility] Optical Systems Engineer Comment on above: Performed By: #### C BCAD, CMP, LIPD, FERR, TSH reflex FT4, CRP #### [facility] [address], [place] [id number] Protein [Mass/Vol] 7.2 g/dL Normal 6.1-8.1 Deejay rn [place] Optical Systems Engineer Comment on above: Performed By: #### C BCAD, CMP, LIPD, FERR, TSH reflex FT4, CRP #### [facility] [address], [place] [id number] Sodium [Moles/Vol] 138 mmol/L Normal 135-146 Deejay garcia [place] Optical Systems Engineer Comment on above: Performed By: #### C BCAD, CMP, LIPD, FERR, TSH reflex FT4, CRP #### [facility] [address], [place] [id number] TBIL <0.3 Normal [facility] Specialist Comment on above: Performed By: #### C BCAD, CMP, LIPD, FERR, TSH reflex FT4, CRP #### [facility] [address], [place] [id number] Urea nitrogen [Mass/Vol] 10 mg/dL Normal 7-25 [facility] Specialist Comment on above: Performed By: #### C BCAD, CMP, LIPD, FERR, TSH reflex FT4, CRP #### [facility] [address], [place] [id number] Ferritinon 05-29-2021 FERR 215.9 ng/mL High 15.0-150.0 [facility] Specialist Comment on above: Performed By: #### C BCAD, CMP, LIPD, FERR, TSH reflex FT4, CRP #### [facility] [address], [place] [id number] Lipid Panelon 05-29-2021 Cholesterol [Mass/Vol] 161 mg/dL Normal 125-200 [facility] Specialist Comment on above: Result Comment: Low risk < 200mg/dL Borderline risk 201-239 mg/dl High risk > or equal to 240 Performed By: #### C BCAD, CMP, LIPD, FERR, TSH reflex FT4, CRP #### [facility] [address], [place] [id number] Cholesterol in HDL [Mass/Vol] 31 mg/dL Low >40 [facility] Specialist Comment on above: Result Comment: High Cardiovascular Risk HDL <40 mg/dL Low Cardiovascular Risk HDL > or equal to 60 mg/dl Performed By: #### C BCAD, CMP, LIPD, FERR, TSH reflex FT4, CRP #### [facility] [address], [place] [id number] Cholesterol in LDL [Mass/Vol] 102 mg/dL Normal [facility] Specialist Comment on above: Result Comment: LDL ATP III CLASSIFICATION LDL less than 100 mg/dl Optimal LDL 100-129 mg/dl Near or above optimal LDL 130-159 Borderline high LDL 160-189 High LDL greater than 189 mg/dl Very High Performed By: #### C BCAD, CMP, LIPD, FERR, TSH reflex FT4, CRP #### [facility] [address], [place] [id number] Cholesterol in VLDL [Mass/Vol] 28 mg/dL Normal [facility] Comment on above: Performed By: #### C BCAD, CMP, LIPD, FERR, TSH reflex FT4, CRP #### [facility] [address], [place] [id number] Cholesterol.total/Ch olesterol in HDL [Mass ratio] 5 {ratio} Normal [facility] Comment on above: Performed By: #### C BCAD, CMP, LIPD, FERR, TSH reflex FT4, CRP #### [facility] [address], [place] [id number] Triglyceride [Mass/Vol] 141 mg/dL Normal 30-150 [facility] Specialist Comment on above: Result Comment: TRIG ATPIII CLASSIFICATIONS TRIG less than 150 mg/dl Normal TRIG 150-199 mg/dl Borderline High TRIG 200-500 mg/dl High TRIG greather than 500 mg/dl Very High Performed By: #### C BCAD, CMP, LIPD, FERR, TSH reflex FT4, CRP #### [facility] [address], [place] [id number] TSH w/ Reflex to Free T4on 0 05-29-2021 TSH 1.480 uIU/mL Normal 0.400-4.500 [facility] Optical Systems Engineer Comment on above: Performed By: #### C BCAD, CMP, LIPD, FERR, TSH reflex FT4, CRP #### [facility] [address], [place] [id number] Vital Signs Date Time Vital Sign Value Performing Clinician Facility 08-02-2023 10:130400 Diastolic blood pressure 88 mm[Hg] Cathi Diane MD Work Phone: [facility] 08-02-2023 10:13-040 Heart rate 78 /min Cathi Diane MD Work Phone: [facility] 08-02-2023 10:130400 Systolic blood pressure 134 mm[Hg] Cathi Diane MD Work Phone: [facility] 08-02-2023 10:08-0400 Body height 161.9 cm Cathi Diane MD Work Phone: [facility] 08-02-2023 10:08-0400 Body temperature 98.1 [degF] Cathi Diane MD Work Phone: [facility] 08-02-2023 10:08-0400 Body weight 80.24 kg Cathi Diane MD Work Phone: [facility] 08-02-2023 10:08-0400 Respiratory rate 14 /min Cathi Diane MD Work Phone: [facility] 08-02-2023 10:08-0400 SaO2% (BldA) [Mass fraction] 98 % Cathi Diane MD Work Phone: [facility] 06-15-2023 09:20-0500 Body height 157.5 cm Frida Garsia MD Work Phone: [facility] 06-15-2023 09:20-0500 Body mass index (BMI) [Ratio] 32.37 kg/m2 Frida Garsia MD Work Phone: [facility] 06-15-2023 09:20-0500 Body temperature 97.81 [degF] Frida Garsia MD Work Phone: [facility] 06-15-2023 09:20-0500 Body weight 80.29 kg Frida Garsia MD Work Phone: [facility] 06-15-2023 09:20-0500 Diastolic blood pressure 90 mm[Hg] Frida Garsia MD Work Phone: [facility] 06-15-2023 09:20-0500 Heart rate 86 /min Frida Garsia MD Work Phone: [facility] 06-15-2023 09:20-0500 Respiratory rate 17 /min Frida Garsia MD Work Phone: [facility] 06-15-2023 09:20-0500 SaO2% (BldA) [Mass fraction] 97 % Frida Garsia MD Work Phone: [facility] 06-15-2023 09:20-0500 Systolic blood pressure 134 mm[Hg] Frida Garsia MD Work Phone: [facility] 04-09-2023 09:30-0500 Diastolic blood pressure 74 mm[Hg] MD Frida Garsia Work Phone: [facility] 04-09-2023 09:30-0500 Heart rate 72 /min MD Frida Garsia Work Phone: [facility] 04-09-2023 09:30-0500 Respiratory rate 16 /min MD Frida Garsia Work Phone: [facility] 04-09-2023 09:30-0500 SaO2% (BldA) [Mass fraction] 98 % MD Frida Garsia Work Phone: [facility] 04-09-2023 09:30-0500 Systolic blood pressure 118 mm[Hg] MD Frida aGrsia Work Phone: [facility] 04-09-2023 06:55-0500 Body height 154.94 cm MD Frida Garsia Work Phone: [facility] 04-09-2023 06:55-0500 Body weight 81.64 kg MD Frida Garsia Work Phone: [facility] Encounters Encounter Date Encounter Type Care Provider Facility Start: 08-02-2023 End: 08-02-2023 ambulatory CATHI DIANE Facility:[facility] Start: 08-02-2023 End: 08-02-2023 Patient encounter procedure Cathi Diane MD Work Phone: [facility] Comment on above: Left carotid artery occlusion; Stenosis of right carotid artery; Benign essential HTN; Tobacco abuse; Depression, unspecified depression type; Crohn's disease without complication, unspecified gastrointestinal tract location (HCC); Centrilobular emphysema (HCC) Start: 07-28-2023 Telephone encounter Kalyan claire Research Coordinator [employer] Comment on above: Research Start: 07-14-2023 Orders Only Cathi Del Rosario Work Phone: [facility] Comment on above: Occlusion and stenos is of left carotid artery (Primary Dx) Start: 07-13-2023 Telephone encounter No Pcp ANGELES WALTERS Comment on above: Appointment Start: 07-01-2023 End: 07-01-2023 ambulatory Frida Ketvertis Facility:[facility] Start: 06-24-2023 End: 06-24-2023 ambulatory Frida Ketvertis Facility:[facility] Start: 06-24-2023 End: 06-24-2023 ambulatory MD Frida Garsia Work Phone: [facility] Work Phone: Start: 06-24-2023 End: 06-24-2023 Patient encounter procedure MD Frida Garsia Work Phone: [facility] Work Phone: Start: 06-18-2023 End: 06-19-2023 ambulatory FRIDA M VICKIVERTIS Not Available Start: 06-15-2023 Bamboo flowsheet Frida chavez MD Work Phone: [facility] Start: 06-15-2023 Bamboo flowsheet Frida chavez MD Work Phone: [facility] Start: 06-15-2023 End: 06-15-2023 ambulatory FRIDA COHENVERTIS Not Available Start: 06-15-2023 End: 06-15-2023 Office outpatient visit 25 minutes Frida Garsia MD Work Phone: [facility] Comment on above: Hypertension, unspec ified type (CMS/HCC) (Primary Dx); Crohn's disease with complication, unspecified gastrointestinal tract location (CMS/HCC); Family history of brain aneurysm; Shortness of breath; Encounter for wellness examination in adult; Tobacco abuse; Tobacco abuse counseling Start: 06-15-2023 End: 06-15-2023 Patient encounter status Frida Garsia MD Work Phone: [facility] Start: 06-14-2023 Chart abstracting Frida byrd MD Work Phone: [facility] Start: 04-09-2023 End: 04-09-2023 ambulatory Imad Asaad Facility:[facility] Start: 04-09-2023 End: 04-09-2023 Admission to same day surgery center MD Frida Garsia Work Phone: [facility] Work Phone: Start: 04-09-2023 End: 04-09-2023 ambulatory MD Frida Garsia Work Phone: [facility] Work Phone: Start: 10-01-2022 Patient encounter status Frida Garsia MD Work Phone: [facility] Start: 03-06-2022 End: 03-06-[address] SUSAN US Facility:[facility] Procedures Date Procedure Procedure Detail Performing Clinician Start: 04-09-2023 Colonoscopy MD Frida foreman Work Phone: Start: 03-05-2022 Mammography Frida byrd MD Work Phone: Plan of Treatment Date Care Activity Detail Author Start: 2041 Hepatitis B Vaccine (1 of 3 - Risk 3-dose series) Hepatitis B Vaccine (1 of 3 - Risk 3-dose series) [facility] Start: 01-02-2024 Influenza vaccination Influenz a Vaccine (Season Ended) [facility] Start: 10-31-2023 Influenza vaccination Influenza Vacc ine (#1) [facility] Comment on above: Postponed from 01/01 (Patient Refused) Start: 10-14-2023 End: 10-14-2023 Patient encounter procedure 10/14/2023 9:20 AM EDT Office Visit [facility] [address] [place] [address] Frida Garsia MD [address] [place] [address] [facility] Start: 10-08-2023 End: 06-15-2024 CBC W Auto Differential panel - Blood CBC and differential Lab Routine Encounter for wellness examination in adult Expected: 10/08/2023, Expires: 06/15/2024 [facility] Comment on above: Expected: 10/08/2023 , Expires: 06/15/2024 Start: 10-08-2023 End: 06-15-2024 Comprehensive metabolic 2000 panel - Serum or Plasma Comprehensive metabolic panel Lab Routine Encounter for wellness examination in adult Expected: 10/08/2023, Expires: 06/15/2024 [facility] Comment on above: Expected: 10/08/2023 , Expires: 06/15/2024 Start: 10-08-2023 End: 06-15-2024 LIPID PANEL WITH REFLEX TO DIRECT LDL LIPID PANEL WITH REFLEX TO DIRECT LDL Lab Routine Encounter for wellness examination in adult Expected: 10/08/2023, Expires: 06/15/2024 [facility] Comment on above: Expected: 10/08/2023 , Expires: 06/15/2024 Start: 10-08-2023 End: 06-15-2024 TSH W/REFLEX TO FT4 TSH W/REFLEX TO FT4 Lab Routine Encounter for wellness examination in adult Expected: 10/08/2023, Expires: 06/15/2024 [facility] Comment on above: Expected: 10/08/2023 , Expires: 06/15/2024 Start: 06-15-2023 End: 06-15-2024 ECG 12 lead ECG 12 lead ECG Routine Hypertension, unspecified type (CMS/HCC) Shortness of breath Expected: 06/15/2023 (Approximate), Expires: 06/15/2024 [facility] Work Phone: Comment on above: Expected: 06/15/2023 (Approximate), Expires: 06/15/2024 Start: 06-15-2023 End: 06-15-2024 MRA Head vessels WO contrast MR angiogram head wo IV contrast Imaging Routine Family history of brain aneurysm Expected: 06/15/2023, Expires: 06/15/2024 [facility] Comment on above: Expected: 06/15/2023 , Expires: 06/15/2024 Start: 06-15-2023 End: 06-15-2025 US Heart Transthoracic Transthoracic Echo (TTE) Complete Echocardiography Routine Hypertension, unspecified type (CMS/HCC) Shortness of breath Expected: 06/15/2023 (Approximate), Expires: 06/15/2025 [facility] Comment on above: Expected: 06/15/2023 (Approximate), Expires: 06/15/2025 Start: 06-15-2023 End: 06-15-2023 Patient encounter procedure [facility] Comment on above: Arrived Start: 05-03-2023 Depression Assessment Depression Ass essment [facility] Start: 04-09-2023 [facility] Start: 03-05-2023 Screening for malign ant neoplasm of breast [facility] Start: 01-01-2023 Covid-19 Vaccine ( season) Covid-19 Vaccine ( season) [facility] Start: 01-01-2023 Covid-19 Vaccine () Covid-19 Vaccine () [facility] Start: 01-01-2023 Influenza vaccination Influenza Vacc ine (#1) [facility] Start: 08-15-2011 Screening for malign ant neoplasm of cervix [facility] Start: 08-15-2011 Zoledronic acid therapy Alpha- 1 Antitrypsin Deficiency Screening [facility] Start: 2002 Screening for malign ant neoplasm of cervix [facility] Start: 2000 Hepatitis A Vaccine (1 of 2 - Risk 2-dose series) Hepatitis A Vaccine (1 of 2 - Risk 2-dose series) [facility] Start: 2000 Hepatitis B Vaccine (1 of 3 - 19+ 3-dose series) Hepatitis B Vaccine (1 of 3 - 19+ 3-dose series) [facility] Start: 2000 Urine microalbumin profile DTaP,Tdap,Td Vaccine (1 - Tdap) [facility] Start: 08-15-1999 Annual PCP Team Silver Wrapper angelica Disease Visit Annual PCP Team Chronic Disease Visit [facility] Start: 08-15-1999 BP Controlled (<130/80) BP Controlle d (<130/80) [facility] Start: 08-15-1999 Hepatitis C screening Hepatitis C Sc yoselin [facility] Start: 08-15-1999 HIV screening HIV Screening [facility] Start: 08-15-1999 MMR Vaccine (1 of 2 - Risk 2-dose series) MMR Vaccine (1 of 2 - Risk 2-dose series) [facility] Start: 08-15-1999 Spirometry Spirometry [facility] Start: 08-15-1991 Meningococcal B Vaccine: Consider Based On Risk (1 of 4 - Increased Risk) Meningococcal B Vaccine: Consider Based On Risk (1 of 4 - Increased Risk) [facility] Start: 08-15-1987 Pneumococcal vaccination Pneumococcal Vaccine (1 of 2 - PCV) [facility] Patient Education Hemorrhoids (DC) [facility] Work Phone: End: 07-13-2024 US Carotid arteries - bilateral US CAROTID ARTERIES [facility] Vascular Lab Routine Occlusion and stenosis of left carotid artery 1 Occurrences starting 07/14/2023 until 07/13/2024 [facility] Work Phone: Comment on above: 1 Occurrences starti ng 07/14/2023 until 07/13/2024 [facility] Immunizations Immunization Date Immunization Notes Care Provider Fa [facility] 02-16-2013 seasonal influenza, intradermal, preservative free Frida Garsia MD Work Phone: [facility] 02-16-2013 influenza virus vacc ine, unspecified formulation Frida Garsia MD Work Phone: [facility] 05-12-2009 novel influenza-H1N1 -09, preservative-free, injectable Frida Garsia MD Work Phone: [facility] 05-03-2009 novel influenza-H1N1 -09, preservative-free, injectable Frida Garsia MD Work Phone: [facility] 08-09-2003 tetanus toxoid, adsorbed Oscar Garsia MD Work Phone: [facility] Payers Date Payer Category Payer Self-pay [id number] 2023 Unknown [id number] 2022 Unknown [id number] 1981 Unknown [id number] 1981 Unknown [id number] 9 1981 Unknown [id number] 9 1959 Unknown [id number] Private Health Insurance [employer] [id number] Unknown HCAP/HFA/FAP Active [id number] Unknown [id number] Unknown [id number] Unknown [id number] Social History Date Type Detail Facility Start: 04-09-2023 End: 08-02-2023 Tobacco smoking status NYIS Ex-smoker (finding) [facility] Start: 1980 Sex Assigned At Female [facility] Start: 05-03-1995 End: 07-02-2023 History of tobacco use Current smoker [facility] Start: 05-03-1995 End: 07-02-2023 History of tobacco use Cigarette Smoker [facility] Start: 02-28-2023 End: 08-02-2023 Cigarettes smoked current (pack per day) - Reported 1 [facility] Start: 02-28-2023 End: 08-02-2023 Tobacco use and exposure Smokeless tobacco non-user [facility] Start: 02-28-2023 End: 06-15-2023 Alcohol intake Lifetime non-drinker (finding) [facility] Start: 09-30-2022 End: 08-02-2023 Humiliation, Afraid, Rape, and Kick questionnaire [HARK] [facility] Within the last year , have you been afraid of your partner or ex-partner? No [facility] Are you now , , , , never or living with a partner? [facility] How often to you hav e a drink containing alcohol? Monthly or less [facility] How many standard dr inks containing alcohol do you have on a typical day? 1 or 2 [facility] How often do you hav e 6 or more drinks on 1 occasion? Never [facility] How hard is it for y ou to pay for the very basics like food, housing, medical care, and heating Not hard at all [facility] Do you feel stress - tense, restless, nervous, or anxious, or unable to sleep at night because your mind is troubled all the time - these days [OSQ] Very much [facility] (I/We) worried wheth er (my/our) food would run out before (I/we) got money to buy more. Never true [facility] Start: 02-28-2023 Tobacco Comment Smokes 60 mins after waking upThinking about quitting [facility] Start: 12-14-2022 Alcohol Comment caffeine: 1-2 cups per day soda [facility] Start: 1980 Sex Assigned At Not on file [facility] Tobacco smoking stat [facility] Tobacco smoking consumption unknown [facility] Start: 08-02-2023 Alcohol intake Current drinker of alcohol (finding) [facility] Start: 08-02-2023 Alcohol Comment socially [facility] Goals Date Patient Goal Desired Activity /State Clinical Notes 04-09-2023 to 08-02-2023 Cathi Diane MD - 08/02/2023 10:05 AM EDTTelephone Encounter - Brenda Warren - 07/28/2023 9:23 AM EDTTelephone Encounter - Marina Brown - 07/13/2023 10:07 AM EDT Note Date & Type Note Facility 08-02-2023 Note HNO ID: [id number] Author: CATHI DIANE MD Service: ? Author Type: Physician Type: Progress Notes Filed: 08/02/2023 10:32 Note Text: [facility] DEPARTMENT OF VASCULAR SURGERY OUTPATIENT VISIT DATE August 02, 2023 OUTPATIENT VISIT TYPE CONSULTATION SERVICE DATE: 08/02/2023 SERVICE TIME: 10:06 AM PRIMARY CARE PHYSICIAN: Frida Garsia MD, MD REFERRING PROVIDER: Frida Garsia MD ([facility]) [address] [place] [phone] Consult requested for an opinion regarding the evaluation and treatment of the above. My final impression and recommendations will be communicated back to the requesting physician by way of the shared medical record or letter via [place] mail. CHIEF COMPLAINT: left carotid occlusion HISTORY OF PRESENT ILLNESS: Vascular consultation at the request of Dr. Frida Garsia. A copy of this consultation note will be provided to the requesting physician by way of shared Medical record or letter to requesting physician via US mail. Ms. Garcia is a 42 year old female who is seen today for Left carotid occlusion she has hypertension depression history of Crohn's disease.. She has a family history of brain aneurysms. And had difficulty control hypertension's her family doctor got a MRA of the head with contrast with this diagnosed a asymptomatic left internal carotid occlusion. She denies any strokes mini strokes or amaurosis fugax. She does have hypertension. She also is on a statin on 40 of Lipitor. PAST MEDICAL HISTORY Diagnosis Date Centrilobular emphysema (HCC) 08/02/2023 Crohn's disease without complication (HCC) 08/02/2023 Depression 08/02/2023 Left carotid artery occlusion 08/02/2023 Stenosis of right carotid artery 08/02/2023 Tobacco abuse 08/02/2023 PAST SURGICAL HISTORY Procedure Laterality Date PAST SURGICAL HISTORY OF 2016 hysterectom PAST SURGICAL HISTORY OF 2010 tonsillectomy and adenoids SOCIAL HISTORY: Social History Tobacco Use Smoking status: Former Packs/day: 1.00 Years: 28.00 Additional pack years: 0.00 Total pack years: 28.00 Types: Cigarettes Start date: 05/03/1995 Quit date: 07/02/2023 Years since quittin.0 Smokeless tobacco: Never Substance Use Topics Alcohol use: Yes Comment: socially Drug use: Not Currently Types: Marijuana FAMILY HISTORY Problem Relation Age of Onset other (htn) Brother FATHER BRAIN ANEURYSM MEDICATIONS: acyclovir (ZOVIRAX) 5 % ointment Apply to affected area as needed. atorvastatin (LIPITOR) 40 mg tablet Take 1 tablet by mouth every morning. dicyclomine (BENTYL) 20 mg tablet Take 20 mg by mouth as needed. ibuprofen (MOTRIN) 800 mg tablet Take 800 mg by mouth as needed. LORazepam (ATIVAN) 1 mg tablet Take 1 mg by mouth as needed. valACYclovir (VALTREX) 1 gram tablet Take 1 tablet by mouth as needed. aspirin 81 mg cap Take 162 mg by mouth once daily. ALLERGIES: ALLERGIES No Known Allergies REVIEW of SYSTEM: Constitutional: No weight loss, malaise or fevers. HEENT: Negative for frequent or significant headaches Respiratory: Negative for cough, wheezing, +shortness of breath Cardiovascular: Negative for chest pain, leg swelling or palpitations Gatrointestinal: Negative for abdominal discomfort, blood in stools or black stools or change in bowel habits Genitourinary: No history of dysuria, frequency, or incontinence Musculoskeletal: Negative for joint pain or swelling, back pain or muscle pain Endocrine: Negative for cold or heat intolerance, polyuria, polydipsia and goiter Hematology/Lymphatic: Negative for prolonged bleeding, bruising easily or swollen nodes Neurologic: No history or headaches, syncope, paralysis, seizures or tremors Integumentary: Negative for lesions, rash, and itching. PHYSICAL EXAM: VITALS: BP 134/88[LEFT ARM[ Pulse 78 Temp (Src) 98.1 (Oral) Resp 14 Ht 5' 3.75 [with 1 ankle boots on cc[ (1.62m) Wt 176 lb 14.4 oz (80.2kg) SpO2 98% BMI 30.61 kg/(m2). General: WDWN in NAD Skin: No lesions; normal color, turgor HEENT: NCAT PERRLA EOMI No icterus or adenopathy Carotid: bruits NONE Pulmonary: Clear to percussion and auscultation Coronary: Normal S1, S2; no murmurs, rubs or gallops Abdomen: No organomegaly, normal bowel sounds, non-tender Extremities: Normal range of motion, no edema or ulceration Vascular: 2+ Pulses throughout carotid, brachial radial, femoral, popliteal, PT, DP Neurologic: Awake, alert and oriented. Normal and symmetrical M/S function. Diagnostic tests reviewed for today's visit: 06/18/2023 MR angiogram head There is complete occlusion of the left intracranial carotid artery with reconstitution through collaterals of the left A1 and M1 segments. FINDINGS: The right cavernous carotid artery supraclinoid carotid artery and carotid bifurcation is within normal limits. There is no flow in the left intracranial carotid artery to the level of the bifurcation. There is (more content not included)... [facility] 08-02-2023 History of Present illness Narrative Images from the original note were not included. [facility] DEPARTMENT OF VASCULAR SURGERY OUTPATIENT VISIT DATE August 02, 2023 OUTPATIENT VISIT TYPE CONSULTATION SERVICE DATE: 08/02/2023 SERVICE TIME: 10:06 AM PRIMARY CARE PHYSICIAN: Frida Garsia MD, MD REFERRING PROVIDER: Frida Garsia MD ([facility]) [address] [place] [phone] Consult requested for an opinion regarding the evaluation and treatment of the above. My final impression and recommendations will be communicated back to the requesting physician by way of the shared medical record or letter via [place] mail. CHIEF COMPLAINT: left carotid occlusion HISTORY OF PRESENT ILLNESS: Vascular consultation at the request of Dr. Frida Garsia. A copy of this consultation note will be provided to the requesting physician by way of shared Medical record or letter to requesting physician via US mail. Ms. Garcia is a 42 year old female who is seen today for Left carotid occlusion she has hypertension depression history of Crohn's disease.. She has a family history of brain aneurysms. And had difficulty control hypertension's her family doctor got a MRA of the head with contrast with this diagnosed a asymptomatic left internal carotid occlusion. She denies any strokes mini strokes or amaurosis fugax. She does have hypertension. She also is on a statin on 40 of Lipitor. PAST MEDICAL HISTORY Diagnosis Date Centrilobular emphysema (HCC) 08/02/2023 Crohn's disease without complication (HCC) 08/02/2023 Depression 08/02/2023 Left carotid artery occlusion 08/02/2023 Stenosis of right carotid artery 08/02/2023 Tobacco abuse 08/02/2023 PAST SURGICAL HISTORY Procedure Laterality Date PAST SURGICAL HISTORY OF 2015 hysterectom PAST SURGICAL HISTORY OF 2009 tonsillectomy and adenoids SOCIAL HISTORY: Social History Tobacco Use Smoking status: Former Packs/day: 1.00 Years: 28.00 Additional pack years: 0.00 Total pack years: 28.00 Types: Cigarettes Start date: 05/03/1995 Quit date: 07/02/2023 Years since quittin.0 Smokeless tobacco: Never Substance Use Topics Alcohol use: Yes Comment: socially Drug use: Not Currently Types: Marijuana FAMILY HISTORY Problem Relation Age of Onset other (htn) Brother FATHER BRAIN ANEURYSM MEDICATIONS: acyclovir (ZOVIRAX) 5 % ointment Apply to affected area as needed. atorvastatin (LIPITOR) 40 mg tablet Take 1 tablet by mouth every morning. dicyclomine (BENTYL) 20 mg tablet Take 20 mg by mouth as needed. ibuprofen (MOTRIN) 800 mg tablet Take 800 mg by mouth as needed. LORazepam (ATIVAN) 1 mg tablet Take 1 mg by mouth as needed. valACYclovir (VALTREX) 1 gram tablet Take 1 tablet by mouth as needed. aspirin 81 mg cap Take 162 mg by mouth once daily. ALLERGIES: ALLERGIES No Known Allergies REVIEW of SYSTEM: Constitutional: No weight loss, malaise or fevers. HEENT: Negative for frequent or significant headaches Respiratory: Negative for cough, wheezing, +shortness of breath Cardiovascular: Negative for chest pain, leg swelling or palpitations Gatrointestinal: Negative for abdominal discomfort, blood in stools or black stools or change in bowel habits Genitourinary: No history of dysuria, frequency, or incontinence Musculoskeletal: Negative for joint pain or swelling, back pain or muscle pain Endocrine: Negative for cold or heat intolerance, polyuria, polydipsia and goiter Hematology/Lymphatic: Negative for prolonged bleeding, bruising easily or swollen nodes Neurologic: No history or headaches, syncope, paralysis, seizures or tremors Integumentary: Negative for lesions, rash, and itching. PHYSICAL EXAM: VITALS: BP 134/88[LEFT ARM[ Pulse 78 Temp (Src) 98.1 (Oral) Resp 14 Ht 5' 3.75 [with 1 ankle boots on cc[ (1.62m) Wt 176 lb 14.4 oz (80.2kg) SpO2 98% BMI 30.61 kg/(m^2). General: WDWN in NAD Skin: No lesions; normal color, turgor HEENT: NCAT PERRLA EOMI No icterus or adenopathy Carotid: bruits NONE Pulmonary: Clear to percussion and auscultation Coronary: Normal S1, S2; no murmurs, rubs or gallops Abdomen: No organomegaly, normal bowel sounds, non-tender Extremities: Normal range of motion, no edema or ulceration Vascular: 2+ Pulses throughout carotid, brachial radial, femoral, popliteal, PT, DP Neurologic: Awake, alert and oriented. Normal and symmetrical M/S function. Diagnostic tests reviewed for today's visit: 06/18/2023 MR angiogram head There is complete occlusion of the left intracranial carotid artery with reconstitution through collaterals of the left A1 and M1 segments. FINDINGS: The right cavernous carotid artery supraclinoid carotid artery and carotid bifurcation is within normal limits. There is no flow in the left intracranial carotid artery to the level of the bifurcation. There is faint reconstitution of flow in the distal A1 segment and M1 segment presumably through collaterals. M2 and M3 segments are within normal limits. The posterior circulation demonstrates codominant vertebral arteries. The basilar artery is within normal limits and the posterior cerebral arteries are unremarkable. IMPRESSION: Ms. Garcia is a 42 year old female with left internal carotid occlusion without any significant right carotid disease. She quit smoking one month ago. Discussed optimal medical management BP goal <130/80 with control Optimal mgmt of Diabetes when present to HgBA1c to <7 Lipid goal LDL <70 with yearly lipid checks and statin when >70 or PSK9 inhibitor if statin intolerant Smoking avoidance and .[place] InterSocietal Consensus II (TASC II) Recommendation. Lipid control in patients with peripheral arterial disease (PAD) All symptomatic PAD patients should have their low-density lipoprotein (LDL)-cholesterol lowered to (<100 mg/dL). In patients with PAD and a history of vascular disease in other beds (e.g.coronary artery disease) it is reasonable to lower LDL cholesterol levels to (<70 mg/dL). All symptomatic patients with PAD and no other clinical evidence of cardiovascular disease should also have their LDL-cholesterol level lowered to (<100 mg/dL). In patients with elevated triglyceride levels where the LDL cannot be accurately calculated, the LDL level should be directly measured and treated to values listed above. Alternatively, the non-HDL (high-density lipoprotein) cholesterol level can be calculated with a goal of <3.36 mmol/L (<130 mg/dL), and in highrisk patients the level should be <2.59 mmol/L (<100 mg/dL) PLAN and RECOMMENDATIONS: Continue Medical Management Recommend risk factor reduction. Baby ASA. Lipid panel check BP control Smoking avoidance f/u carotid duplex in 3 years with PCP she should be on a max dose statin rec starting lipitor 80mg rec neurology consult asa 81 or 325 mg daily SIGNATURE: Cathi Diane MD PATIENT NAME: Socorro Garcia DATE: August 02, 2023 TIME: 10:06 AM documented in this encounter [facility] 07-28-2023 Miscellaneous Notes Study TItle: Risk Assessment of Stroke Using Non-Invasive Ultrasonic Backscatter from Carotid Plaque (RUNUP) IRB#: [id number] PI: Destiny Ortiz, PhD Phone#: [phone] COORDINATOR/Research Nurse/Human Resource Intern: Kalyan Guzman, PhD or Brenda Warren or [phone] Pager: [phone] Recruitment Telephone Contact to introduce the study and discuss mailed study information to the patient prior to their upcoming Duplex Ultrasound Carotid Stenosis office visit. Informed the patient they may be able to join this research study when they come in for their scheduled ultrasound to look at the narrowing in their carotid artery. The subject did not decline participating and ICF mailed for review? Yes The study team will review the study with you when you come in for your ultrasound exam and you will be able to decide at that time if you wish to join the study. In the meantime, if there are any questions feel free to contact me at [phone]. REMINDER Confirm the scheduled date and time of their Ultrasound Exam with the subject. Brenda Warren documented in this encounter [facility] 07-13-2023 Miscellaneous Notes Reason for call: Pt called and she would like to schedule an appt with Dr Cathi Diane. Home and cell number: [phone] Diagnosis: Oclusion of left carotid artery Marina Thompson documented in this encounter [facility] 06-15-2023 History of Present illness Narrative Socorro Garcia is a 42 y.o. female presents with chief complaint of Hypertension HPI: She is here to discuss her bp. She thinks that she needs a higher medication, her bp has been running [id number] 136/99. She has been getting headaches when it runs high. She states that she usually does not take the hydrochlorothiazide consistently, but she has been taking it daily for the last 2 weeks and has not noticed a change in her bp. Hypertension This is a chronic problem. The current episode started more than 1 year ago. The problem has been gradually worsening since onset. Associated symptoms include headaches. SUBJECTIVE: PAST MEDICAL HISTORY: Past Medical History: Diagnosis Date Depression ([facility]) H/O Crohn's disease MEDICATIONS: Current Outpatient Medications Medication Instructions acyclovir (Zovirax) 5 % ointment Topical, 6 times daily, Space applications every 3 hours. dicyclomine (BENTYL) 20 mg, Oral, 4 times daily before meals and nightly hydroCHLOROthiazide (HYDRODiuril) 25 MG tablet TAKE 1 TABLET BY MOUTH EVERY DAY IN THE MORNING ibuprofen 800 MG tablet TAKE 1 TABLET BY MOUTH EVERY 8 HOURS NEEDED FOR 30 DAYS LORazepam (Ativan) 1 MG tablet 1 tablet as needed Orally every 8 hours for 30 days valACYclovir (Valtrex) 1 g tablet TAKE 1 TABLET BY MOUTH EVERY 12 HOURS ALLERGIES: No Known Allergies SURGICAL HISTORY: Past Surgical History: Procedure Laterality Date ADENOIDECTOMY 05/16/2009 CERVICAL BIOPSY W/ LOOP ELECTRODE EXCISION HYSTERECTOMY 10/27/2015 LAPAROSCOPY DIAGNOSTIC / BIOPSY / ASPIRATION / LYSIS 03/13/2016 TONSILLECTOMY 05/16/2009 FAMILY HISTORY: Family History Problem Relation Name Age of Onset Cancer Mother Lung Hyperlipidemia Brother Hypertension Brother Irritable bowel syndrome Brother Cancer Maternal Grandmother Colon Colon cancer Maternal Grandmother Melanoma Maternal Grandfather Alzheimer's disease Paternal Grandfather SOCIAL HISTORY: Social History Tobacco Use Smoking status: Former Packs/day: 1 Types: Cigarettes Quit date: 05/03/2001 Years since quittin.1 Smokeless tobacco: Never Tobacco comments: Smokes 60 mins after waking up Thinking about quitting Substance Use Topics Alcohol use: Never Comment: caffeine: 1-2 cups per day soda Drug use: Never Depression: Not on file REVIEW OF SYMPTOMS: Review of Systems Neurological: Positive for headaches. OBJECTIVE: Visit Vitals BP 134/90 Pulse 86 Temp 97.8 F Resp 17 Ht 5' 2 Wt 177 lb SpO2 97% BMI 32.37 kg/m Smoking Status Former BSA 1.87 m Physical Exam Constitutional: Appearance: Normal appearance. HENT: Head: Normocephalic. Eyes: Pupils: Pupils are equal, round, and reactive to light. Neck: Thyroid: No thyroid mass. Trachea: Trachea normal. Cardiovascular: Rate and Rhythm: Normal rate and regular rhythm. Heart sounds: No murmur heard. No gallop. Pulmonary: Effort: Pulmonary effort is normal. Breath sounds: Normal breath sounds. No wheezing or rhonchi. Chest: Chest wall: No tenderness. Abdominal: General: There is no distension. Palpations: Abdomen is soft. There is no mass. Tenderness: There is no abdominal tenderness (RLQ). There is no right CVA tenderness, left CVA tenderness, guarding or rebound. Musculoskeletal: General: Normal range of motion. Cervical back: Full passive range of motion without pain. Lymphadenopathy: Cervical: No cervical adenopathy. Skin: General: Skin is warm and dry. Neurological: General: No focal deficit present. Mental Status: She is alert. Psychiatric: Mood and Affect: Mood normal. ASSESSMENT AND PLAN: Assessment/Plan Diagnoses and all orders for this visit: Hypertension, unspecified type (CMS/HCC) - ECG 12 lead; Future - Transthoracic Echo (TTE) Complete; Future - olmesartan-hydroCHLOROthiazide (Benicar HCT) 20-12.5 MG tablet; Take 1 tablet by mouth in the morning. Prior to your visit today the team reviewed your chart and outlined testing and treatment needed for your care. Today we discussed the possible complications of hypertension, including increased risk of heart disease and stroke, and kidney problems. Your goals for your hypertension management are to keep your blood pressure less than 140/90 and maintain a healthy weight with a BMI of less than 26. We are working together to achieve these goals with the following plan, healthier diet, increased activity, and medication understanding and compliance. Barriers to these goals have been discussed. Due to continued sob and htn- recommend EKG and echo Crohn's disease with complication, unspecified gastrointestinal tract location (CMS/HCC) Recent colonoscopy with no sign of disease Family history of brain aneurysm - MR angiogram head wo IV contrast; Future Shortness of breath - ECG 12 lead; Future - Transthoracic Echo (TTE) Complete; Future Encounter for wellness examination in adult - Comprehensive metabolic panel; Future - LIPID PANEL WITH REFLEX TO DIRECT LDL; Future - TSH W/REFLEX TO FT4; Future - CBC and differential; Future Tobacco abuse - varenicline (Chantix) 1 MG tablet; Take 0.5 tablets (0.5 mg) by mouth in the morning and 0.5 tablets (0.5 mg) before bedtime. Take with full glass of water.. - varenicline (Chantix) 1 MG tablet; Take 1 tablet (1 mg) by mouth in the morning and 1 tablet (1 mg) before bedtime. Take with full glass of water.. Tobacco abuse counseling Prior to your visit today the team reviewed your chart and outlined testing and treatment needed for your care. Today we discussed the possible complication of tobacco abuse including increased risk of heart attacks and stroke, lung disease and cancer. Your goals for your tobacco abuse are to help you quit smoking. The availability, risks, benefits of medication use to treat nicotine addition have been discussed We are working together to achieve these goals with the following plan: Barriers to these goals have been discussed. documented in this encounter [facility] 04-09-2023 Procedure note [facility] Health Evaluation note No assessment inform ation available [facility] Work Phone: Evaluation note Diagnosis Hypertension, unspecified type ([facility]/HCC)- Primary Crohn's disease with complication, unspecified gastrointestinal tract location ([facility]/HCC) Family history of brain aneurysm Family history of other cardiovascular diseases Shortness of breath Encounter for wellness examination in adult Tobacco abuse Tobacco use disorder Tobacco abuse counseling [facility] Occlusion and stenosis of left carotid artery- Primary Occlusion and stenosis of carotid artery without mention of cerebral infarction [facility] Left carotid artery occlusion Occlusion and stenosis of carotid artery without mention of cerebral infarction Stenosis of right carotid artery Occlusion and stenosis of carotid artery without mention of cerebral infarction Benign essential HTN Essential hypertension, benign Tobacco abuse Tobacco use disorder Depression, unspecified depression type Crohn's disease without complication, unspecified gastrointestinal tract location (HCC) Centrilobular emphysema (HCC) Other emphysema documented in this encounter [facility] Author Steven Rose [facility] April 09, 2023 8:41am Note Date/Time April 09, 2023 8 :41am [facility] [address] [place] [address] Gastroenterology H&P Signed Patient: Socorro Garcia MR#: [id number] : 1980 Acct:[id number] Age/Sex: 42 / F Adm Date: 3 Loc: Room: Type: [facility] Attending Dr: Steven Rose MD Copies to: MD Frida Mendoza MD~ Date of Service: 04/09/2023 HISTORY & PHYSICAL: Patient's history with special attention to the cardiovascular, pulmonary systems and the current problem was reviewed with the patient immediately prior to the procedure. Present medications and doses reviewed in the EMR. Allergies and pertinent laboratory tests were also reviewedat this time in the EMR. The physical examination, as below, was then performed. Indication, assessment and HPI: 42-year-old female here for colonoscopy for evaluation of possible Crohn's Family history of GI malignancy? No PHYSICAL EXAMINATION Mouth and Pharynx : Moist mucus membranes, normal dentition Cardiac: Regular rate, regular rhythm Pulmonary: Clear to auscultation bilaterally, no wheezing Neurological: Alert and oriented x3, no focal deficits noted Abdomen: Abdomen soft, non-tender REVIEW OF SYSTEMS Constitutional: Denies malaise, fevers Cardiovascular: Denies chest pain, palpitations Respiratory: Denies shortness of breath, wheezing Gastrointestinal: Per HPI Genitourinary: Denies dysuria, polyuria Musculoskeletal: Denies joint swelling, joint stiffness Neurological: Denies numbness, tingling Integumentary: Denies rashes, skin lesions Endocrine: Denies fatigue, weight loss Written informed consent obtained from the patient. Risks (including but not limited to perforation, infection, bloating, bleeding, need for emergent surgeryand loss of life), benefits and alternatives explained and questions answered. The patient verbalized understanding. Based on history patient is an appropriate candidate for the procedure. Steven Rose M.D. Documented By: Steven Rose MD 04/09/2335 Signed By: <Electronically signed by Steven Rose MD> 04/09/23 0851 [facility] Work Phone: Hospital Discharge instructions Additional Instructions DISCHARGE INSTRUCTIONS FOR COLONOSCOPY WHAT TO EXPECT: - You may feel full, gassy or cramping after your procedure. In some cases, this may be from a few hours to a day. Walking may help relieve the discomfort. - If you have polyp(s) removed you may note some minor bloody discharge after your first bowel movements. - You should begin to recover from anesthesia within 1 hour of the procedure, however may feel groggy for the next 24 hours. DO's AND DON'Ts: - Call your doctor right away if you have a hard abdomen, severe pain, are passing lots of bright red blood or clots. - Call your doctor if you develop any rashes, hives or difficulty breathing. - Let your doctor know if you have not had a bowel movement by 3 days after your procedure. - If you take 81 mg aspirin for your heart it is safe to resume this medication. - If you take other blood thinner medications your doctor will instruct you when these can safely be resumed. - Do NOT drive for 24 hours. - Do NOT operate machinery such as power tools, lawn mowers, snow blowers, sewing machines, etc. for 24 hours. - Avoid alcoholic beverages and drugs for allergies, nerves, or sleep. - Do NOT stay alone. Do NOT leave your child unattended. - Do NOT make important personal or business decisions or sign any legal documents. - Eat solid foods and drink liquids in smaller amounts than usual until normal appetite returns. If you should experience an upset stomach, liquids high in sugar content (soda, Jt-Aid, non-acid juices) are recommended. - You can resume normal activities tomorrow. FOLLOW UP & RECOMMENDATIONS: -Notify the doctor if you have any problems. -Follow up with PCP. -Office number [phone]. [facility] Work Phone: Reason for referral (narrative)* Outpatient Procedure (Routine) - Authorized Specialty Diagnoses / Procedures Referred By Jasiel rocha Referred To [facility] Diagnoses Occlusion and stenosis of left carotid artery Procedures US CAROTID ARTERIES LEANDRO VAS LAB DUPLEX SCAN EXTRACRANIAL ART COMPL BI STUDY Cathi Diane MD [address] [place] [address] [facility] [address] [place] [address] Referral ID Status Reason Start Date Expiration Date Visits Requested Visits Authorized [id number] Authorized Auto-Generat ed Referral 07/14/2023 07/13/2024 1 1 [facility] Summary Purpose Family History Relationship Condition Age at Onset Recorded Date/T bryan Not Specified Small cell carcinoma of lung Unknown father Cerebral aneurysm Unknown Relationship Condition Age at Onset Recorded Date/T bryan Not Specified Small cell carcinoma of lung Unknown father Cerebral aneurysm Unknown brother Family history of lung cancer Unknown Unknown father Unknown Aneurysm Unknown Not Specified Unknown Family history of lung cancer Unknown Advance Directives Advance Directive Response Recorded Date/ Time Advance Directives No April 07, 2023 3:22pm Chief Complaint and Reason for Visit Chief Complaint Crohn's Disease Chief Complaint Crohn's Disease R06.02 Reason for Referral Specialty Diagnoses / Procedures Referred By Contac t Referred To Contact Radiology Diagnoses Family history of brain aneurysm Procedures MR angiogram head wo IV contrast MR angiogram head w IV contrast Frida Garsia MD [address] [place] [address] [facility] Mr [address] [place] [address] Referral ID Status Reason Start Date Expiration Date V isits Requested Visits Authorized [id number] Authorized 06/15/2023 12/12/2023 1 1 Specialty Diagnoses / Procedures Referred By Contac t Referred To Contact Radiology Diagnoses Hypertension, unspecified type (CMS/HCC) Shortness of breath Procedures Transthoracic Echo (TTE) Complete Frida Garsia MD [address] [place] [address] [address] Phone: [phone] Fax: [phone] Referral ID Status Reason Start Date Expiration Date Visits Requested Visits Authorized [id number] Authorized Perform Procedure 06/15/2023 12/12/2023 1 1 Additional Source Comments INFORMATION SOURCE (unrecogn ized section and content) DATE CREATED AUTHOR 05/30/2021 [facility] Me dical Specialist DATE CREATED AUTHOR AUTHOR'S ORGANIZ ATION 12/27/2021 [facility] DATE CREATED AUTHOR AUTHOR'S ORGANIZ ATION 03/13/2022 [facility] DATE CREATED AUTHOR AUTHOR'S ORGANIZ ATION 06/23/2023 [facility] dical Specialists EPIC DATE CREATED AUTHOR AUTHOR'S ORGANIZ ATION 07/04/2023 [facility] DATE CREATED AUTHOR AUTHOR'S ORGANIZ ATION 08/02/2023 [facility] Care Teams (unrecognized sec tion and content) Team Status: Active Member Role Status Dates Frida Garsia MD Primary Care Provider Active Team Status: Inactive Member Role Status Dates Frida Garsia MD Primary Care Provider Active Steven Rose MD Attending Provider Active Transport Engineer Relationship Specialty Start Date End Date Frida Garsia MD [address] [id number] PCP - General Family Medicine 09/29/22 Frida Garsia MD [address] [place] [address] PCP - Medical [employer] 10/01/22 Transport Engineer Relationship Specialty Start Date End Date Frida Garsia MD [address] [place] [address] PCP - General Family Medicine 09/29/22 Frida Garsia MD [address] [place] [address] PCP - Medical [employer] 10/01/22 Team Status: Inactive Member Role Status Dates Frida Garsia MD Primary Care Provider Active Start: April 09, 2023 End: April 09, 2023 Steven Rose MD Attending Provider Active Start: April 09, 2023 End: April 09, 2023 Team Status: Inactive Member Role Status Dates Frida Garsia MD Primary Care Provide r, Attending Provider Active Start: June 24, 2023 End: June 24, 2023 Transport Engineer Relationship Specialty Start Date End Date Frida Garsia MD [address] [place] [address] Referring Family Medicine 07/08/23 Transport Engineer Relationship Specialty Start Date End Date Frida Garsia MD [address] [place] [address] PCP - General Family Medicine 07/14/23 Transport Engineer Relationship Specialty Start Date End Date Frida Garsia MD [address] [place] [address] PCP - General Family Medicine 07/14/23 Transport Engineer Relationship Specialty Start Date End Date Frida Grasia MD [address] [place] [address] PCP - General Family Medicine 07/14/23 Reason for Visit (unrecogniz ed section and content) Reason Comments Hypertension Reason Comments Appointment Reason Comments Research Reason Comments Consult Source Comments (unrecognize d section and content) In the event this informatio n is protected by the Federal Confidentiality of Alcohol and Drug Abuse Patient Records regulations: The Federal rules restrict any use of the information to criminally investigate or prosecute any alcohol or drug abuse patient.[facility] the event this information is protected by the Federal Confidentiality of Alcohol and Drug Abuse Patient Records regulations: The Federal rules restrict any use of the information to criminally investigate or prosecute any alcohol or drug abuse patient.[facility] the event this information is protected by the Federal Confidentiality of Alcohol and Drug Abuse Patient Records regulations: The Federal rules restrict any use of the information to criminally investigate or prosecute any alcohol or drug abuse patient.[facility] the event this information is protected by the Federal Confidentiality of Alcohol and Drug Abuse Patient Records regulations: The Federal rules restrict any use of the information to criminally investigate or prosecute any alcohol or drug abuse patient.[facility] FOR RECORDS PERTAINING TO PATIENTS WHO ARE OR HAVE BEEN ENROLLED IN A CHEMICAL DEPENDENCY/SUBSTANCEABUSE PROGRAM, SOME INFORMATION MAY BE OMITTED. This clinical summary was aggregated from multiple sources. Caution should be exercised in using it in the provision of clinical care. This summary normalizes information from multiple sources, and as a consequence, information in this document may materially change the coding, format and clinical context of patient data. In addition, data may be omitted in some cases. CLINICAL DECISIONS SHOULD BE BASED ON THE PRIMARY CLINICAL RECORDS. [facility], [facility]. provides no warranty or guarantee of the accuracy or completeness of information in this document.
--- NOTE | 2023-08-05 19:32 | ECG_ITS ---
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
--- NOTE | 2023-08-05 19:37 | ED_ITS ---
HPI HPI - General Adult General Chief complaint: Syncope Stated complaint: cp Time Seen by Provider: 08/05/23 19:13 Source: patient Mode of arrival: ambulance Limitations: no limitations History of Present Illness HPI narrative: 42-year-old female was brought in by squad for evaluation after she had a syncopal episode at a friend's house. She to me that she was sitting on the counter and suddenly started to feel a bit faint and/or dizzy. She felt a sharp pain radiating from the right chest through the mid chest into the left chest. She tried to then get into a position where she would not fall or hurt herself. The EMS gives report that the patient had been unconscious for 6 minutes. This seems like a prolonged period of time for syncopal event. No seizure activity was witnessed. The patient says she has experienced syncopal episodes in the past. She has no history of seizure disorder. At this time she feels back to normal. In discussing her history, she told me that she had been a long-term smoker who quit a couple of months ago. Prior to quitting, she had been taking medication to control her blood pressure. She does not know the name of the blood pressure medication. She said that after quitting smoking her blood pressure dropped and she started getting readings in the 70s or 80s systolic and decided that she would quit her blood pressure medication. Over the ensuing week or 2 her blood pressure started to creep up to 2 days ago she resumed her medication. It turns out that, by calling [facility] in [place], we are able to determine the patient takes a combination of olmesartan and HCTZ 20, 12.5. The patient also told me that because of these episodes that she had been experiencing of near syncope or syncope, she followed up with her primary care physician and was sent for a variety of tests including noncontrast CT scan of the brain, EKG, additional tests after was determined that she had 100% occlusion of the left carotid artery. Echocardiogram was normal, she told me. She was referred to a vascular surgeon and started on 40 mg of Lipitor. She then sought a second opinion through [facility] and they increased her Lipitor to 80 mg during her visit just a few days ago. On review of systems, she denied any recent illness or injury to the head or neck. She denied any upper respiratory symptoms such as nasal congestion, ear pain, sore throat or cough over the last week or 2. She denied any recent change in diet. She denied any chest pain or shortness of breath prior to this episode. She denied any nausea, vomiting or diarrhea prior to this episode. She denied any urinary or bowel symptoms. Related Data Home Medications ?Medication ?Instructions ?Recorded ?Confirmed atorvastatin 40 mg tablet 80 mg PO .qhs 08/05/23 08/05/23 olmesartan 20 1 tab PO QDAY 08/05/23 08/05/23 mg-hydrochlorothiazide 12.5 mg tablet varenicline 1 mg tablet 1 mg PO .q12 PRN cold ores 08/05/23 08/05/23 Allergies Allergy/AdvReac Type Severity Reaction Status Date / Time No Known Drug Allergies Allergy Verified 08/05/23 19:13 Opioid HPI Opioid Management Most Recent Opioid Data: No Data to Display Exam Narrative Exam Narrative: Nurses notes and vital signs reviewed and patient is not hypoxic. Afebrile General: Well-appearing and in no apparent distress. Skin: Warm, dry, no pallor noted. No rash. Head: Normocephalic, atraumatic. Neck: Supple, non-tender. No cervical lymphadenopathy. Unable to auscultate left carotid artery. No right carotid bruit Eye: Pupils are equal, round and EOMI. No scleral icterus. No nystagmus. Ears, Nose, Mouth, and Throat: TM are clear, no posterior oropharynx erythema or nasal mucosal hypertrophy, uvula is mid-line Oral mucosa is moist Cardiovascular: Regular Rate and Rhythm without murmur, gallop or rub. Respiratory: No accessory muscle use or respiratory distress. Lungs are clear to auscultation, no wheezing, rales or rhonchi Musculoskeletal: normal ROM, no calf or popliteal tenderness, no lower extremity edema/swelling GI: Abdomen is soft, non-distended. Normal bowel sounds. No tenderness to palpation. No rebound, guarding, or rigidity noted. Neurological: A&O x4. No cranial nerve dysfunction observed. No truncal ataxia. Moves all extremities. Sensation intact. Psychiatric: Cooperative and interactive. Normal mood and affect. Constitutional Vital Signs, click to edit/add: Last Vital Signs Temp 98.2 F 08/05/23 19:14 Pulse 78 08/05/23 20:01 Resp 16 08/05/23 19:14 BP 122/77 04/04/24 20:01 Pulse Ox 99 08/05/23 19:14 O2 Del Method Room Air 08/05/23 19:14 Course Vital Signs Vital signs: Vital Signs Temperature 98.2 F 08/05/23 19:14 Pulse Rate 85 08/05/23 19:14 Respiratory Rate 16 08/05/23 19:14 Blood Pressure 150/92 H 08/05/23 19:14 Pulse Oximetry 99 08/05/23 19:14 Oxygen Delivery Method Room Air 08/05/23 19:14 Temperature 98.2 F 08/05/23 19:14 Pulse Rate 78 08/05/23 20:01 Respiratory Rate 16 08/05/23 19:14 Blood Pressure 122/77 08/05/23 20:01 Pulse Oximetry 99 08/05/23 19:14 Oxygen Delivery Method Room Air 08/05/23 19:14 Medical Decision Making MDM Narrative Medical decision making narrative: Patient was placed on charging car operator and EKG obtained. Blood drawn and sent for evaluation. I asked that orthostatics be obtained And they were negative. EKG without ST elevation, ischemic changes or dysrhythmia. Emergency department workup was unremarkable. Patient had a normal CBC, normal CMP, negative troponin and negative D-dimer. She was informed of results, given reassurance and discharged home. She will continue to take her combination olmesartan and HCTZ, the increased dose of Lipitor, as well as continue with lifestyle changes as we discussed - Smoking cessation, improve diet, increase activity and exercise, close follow-up with her PCP and specialists. Lab Data Lab results reviewed: Yes I reviewed the patient's lab results Labs: Lab Results 08/05/23 Range/Units 19:25 WBC 10.7 (4.0-11.0) 10^3/uL RBC 4.66 (4.20-5.40) 10^6/uL Hgb 14.4 (12.0-16.0) g/dL Hct 42.9 (36.0-48.0) % MCV 92.1 (81.0-99.0) fL MCH 30.9 (26.7-34.0) pg MCHC 33.6 (29.9-35.2) g/dL RDW 12.7 (11.0-15.0) % Plt Count 285 (150-450) 10^3/uL MPV 9.6 (9.5-13.5) fL Neut % (Auto) 74.7 (43.0-75.0) % Lymph % (Auto) 18.0 L (20.5-60.0) % Brown % (Auto) 6.5 (1.7-12.0) % Eos % (Auto) 0.3 L (0.9-7.0) % Baso % (Auto) 0.2 (0.2-2.0) % Neut # (Auto) 8.0 H (1.4-6.5) 10^3/uL Lymph # (Auto) 1.9 (1.2-3.8) 10^3/uL Brown # (Auto) 0.7 (0.3-0.8) 10^3/uL Eos # (Auto) 0.0 (0.0-0.7) 10^3/uL Baso # (Auto) 0.0 (0.0-0.1) 10^3/uL Abs Immat Gran (auto) 0.03 (0.00-0.03) 10^3/uL Imm/Tot Granulo (auto) 0.3 (0.0-0.5) % D-Dimer 0.33 (<=0.59) mg/L FEU Sodium 139 (136-145) mmol/L Potassium 3.8 (3.5-5.1) mmol/L Chloride 100 (98-107) mmol/L Carbon Dioxide 27.2 (21.0-32.0) mmol/L Anion Gap 15.6 BUN 12.0 (7.0-18.0) mg/dL Creatinine 0.80 (0.55-1.02) mg/dL Est GFR ( Amer) >60 (>=60) Est GFR (Non-Af Amer) >60 (>=60) BUN/Creatinine Ratio 15.0 Glucose 102 (74-106) mg/dL Calcium 9.3 (8.5-10.1) mg/dL Total Bilirubin 0.7 (0.2-1.0) mg/dL AST 22 (15-37) U/L ALT 39 (14-59) U/L Alkaline Phosphatase 80 (46-116) U/L Troponin I High Sens 10.3 (4.0-51.3) pg/mL Total Protein 7.7 (6.4-8.2) g/dL Albumin 4.0 (3.4-5.0) g/dL Globulin 3.7 g/dL Albumin/Globulin Ratio 1.1 ECG Data Attestation: I personally reviewed and interpreted this ECG as follows: Interpretation: EKG interpretation: Emergency Department physician interpretation. Normal sinus rhythm at 76bpm. Normal axis, normal intervals and no ST segment elevation or depression. Discharge Plan Discharge Stand Alone Forms: Portal Instructions Chief Complaint: Syncope Clinical Impression: Carotid artery stenosis, Syncope Patient Disposition: Home, Self-Care Time of Disposition Decision: 20:18 Prescriptions / Home Meds: No Action atorvastatin 40 mg tablet 80 mg PO .qhs varenicline 1 mg tablet 1 mg PO .q12 PRN (Reason: cold ores) olmesartan-hydrochlorothiazide 20-12.5 mg tablet 1 tab PO QDAY Print Language: Korean Instructions: Syncope (ED), Carotid Artery Disease (DC) Referrals: HIMA JOSE [Primary Care Provider] - 1 week
[2023-08-05 19:42] LABS: Basophils Percent Auto 0.2 % (0.2-2.0); Eosinophils Percent Auto 0.3 % (0.9-7.0); Hematocrit 42.9 % (36.0-48.0); Hemoglobin 14.4 g/dL (12.0-16.0); Immature Granulocytes Abs Auto 0.03 10^3/uL (0.00-0.03); Immature Granulocytes Pct Auto 0.3 % (0.0-0.5); Lymphocytes Absolute Auto 1.9 10^3/uL (1.2-3.8); Mean Corpuscular HGB Conc 33.6 g/dL (29.9-35.2); Mean Corpuscular Hemoglobin 30.9 pg (26.7-34.0); Mean Corpuscular Volume 92.1 fL (81.0-99.0); Mean Platelet Volume 9.6 fL (9.5-13.5); Monocytes Absolute Auto 0.7 10^3/uL (0.3-0.8); Monocytes Percent Auto 6.5 % (1.7-12.0); Neutrophils Percent Auto 74.7 % (43.0-75.0); Platelet Count 285 10^3/uL (150-450); Red Blood Count 4.66 10^6/uL (4.20-5.40); Red Cell Distribution Width 12.7 % (11.0-15.0); White Blood Count 10.7 10^3/uL (4.0-11.0)
[2023-08-05 19:53] LABS: D Dimer 0.33 mg/L FEU (<=0.59)
[2023-08-05 20:00] LABS: Alanine Aminotransferase 39 U/L (14-59); Albumin Globulin Ratio 1.1; Alkaline Phosphatase 80 U/L (46-116); Anion Gap 15.6; Aspartate Amino Transferase 22 U/L (15-37); Bilirubin Total 0.7 mg/dL (0.2-1.0); Calcium 9.3 mg/dL (8.5-10.1); Carbon Dioxide 27.2 mmol/L (21.0-32.0); Chloride 100 mmol/L (98-107); Estimated GFR (African America >60 (>=60); Estimated GFR (Non-African Ame >60 (>=60); Globulin 3.7 g/dL; Glucose 102 mg/dL (74-106); Potassium 3.8 mmol/L (3.5-5.1); Sodium 139 mmol/L (136-145); Total Protein 7.7 g/dL (6.4-8.2)
[2023-08-05 20:03] LABS: Troponin I High Sensitivity 10.3 pg/mL (4.0-51.3)
== END 2023-08-05 20:41 | disposition home or self-care (01) ==
PROVIDERS: Emergency Provider Emergency Medicine; PCP Family Medicine
DX: R55 Syncope and collapse (principal); I65.22 Occlusion and stenosis of left carotid artery; Z87.891 Personal history of nicotine dependence; R07.9 Chest pain, unspecified; Z79.899 Other long term (current) drug therapy
CPT/HCPCS: 36415; 80053; 84484; 85025; 85378; 93005; 99284

== ENCOUNTER 2023-11-08 08:29 | Outpatient (REF) | payer OTHER, SELFPAY ==
[2023-11-11 17:10] LABS: Age Gdln ACOG Testing Note (.); HPV Aptima Negative (Negative); IGP, Aptima HPV, rfx 16/18,45 Note (.)
== END 2023-11-08 08:30 | disposition home or self-care (01) ==
LOC: LAB 08:29
PROVIDERS: PCP Family Medicine; Visit Provider Obstetrics & Gynecology
DX: Z01.419 Encounter for gynecological examination (general) (routine) without abnormal findings (principal)
CPT/HCPCS: 88175

== ENCOUNTER 2024-11-09 12:33 | Outpatient (REF) | payer OTHER, SELFPAY | END 2024-11-09 12:34 | disposition home or self-care (01) | LOC: LAB 12:33 | PROVIDERS: PCP Family Medicine; Visit Provider Obstetrics & Gynecology | DX: Z01.419 Encounter for gynecological examination (general) (routine) without abnormal findings (principal) | CPT/HCPCS: 88175 ==

== ENCOUNTER 2024-11-11 09:55 | Outpatient (OUT) | payer OTHER, SELFPAY ==
--- OUTSIDE RECORDS SUMMARY | 2024-11-09 08:30 | XMS_ITS | Encounter Summary ---
Author Organization [facility] Address [address] [place] [address] Care Team Providers Care Food Adviser Name Role Phone Frida Garsia MD Primary Care Provider + [phone] Frida Garsia MD Unavailable [phone] Reason for Visit * Reason Comments Well Women Visit Encounter Details Date Type Department Care Team (Late st Contact Info) Description 11/09/2024 8:30 AM EDT Office Visit [facility] [address] [facility] [id number] Chandan Hendrix DO [address] [facility] [place] [address] Well woman exam with routine gynecological exam; Breast cancer screening by mammogram Social History Tobacco Use Types Packs/Day Years Used Date Smoking Tobacco: Former Cigarettes Q uit: 05/03/2001 Smokeless Tobacco: Never Comments:Smokes 60 mins afte r waking up Thinking about quitting Alcohol Use Standard Drinks/Week Comments Never 0 (1 standard drink = 0.6 oz pure alcohol) caffeine: 1-2 cups per day soda Humiliation, Afraid, Rape, and Kick questionnair e Answer Date Recorded Within the last year, have y ou been afraid of your partner or ex-partner? No 09/30/2022 Within the last year, have y ou been humiliated or emotionally abused in other ways by your partner or ex-partner? No Within the last year, have y ou been kicked, hit, slapped, or otherwise physically hurt by your partner or ex-partner? No 09/30/2022 Within the last year, have y ou been raped or forced to have any kind of sexual activity by your partner or ex-partner? No 09/30/2022 Social Connection and Isolation Panel [NHANES] A nswer Date Recorded In a typical week, how many times do you talk on the phone with family, friends, or neighbors? Three times a week 09/30/2022 How often do you get togethe r with friends or relatives? Once a week 09/30/2022 How often do you attend chur ch or congregational services? Never 09/30/2022 Do you belong to any clubs o r organizations such as confucianism groups, unions, [employer] or athletic groups, or school groups? No 09/30/2022 How often do you attend meet ings of the clubs or organizations you belong to? Never 09/30/2022 Are you , , di vorced, , never , or living with a partner? 09/30/2022 AUDIT-C Answer Date Recorded Q1: How often do you have a drink containing alc ohol? Monthly or less 09/30/2022 Q2: How many drinks containi ng alcohol do you have on a typical day when you are drinking? 1 or 2 09/30/2022 Q3: How often do you have si x or more drinks on one occasion? Never 09/30/2022 Overall Financial Resource Strain (CARDIA) Answe r Date Recorded How hard is it for you to pa y for the very basics like food, housing, medical care, and heating? Not hard at all 09/30/2022 [facility] [place] [facility] - Occupational Stress Questionnaire Answer Date Recorded Do you feel stress - tense, restless, nervous, or anxious, or unable to sleep at night because your mind is troubled all the time - these days? Very much 09/30/2022 Exercise Vital Sign Answer Date Recorde d On average, how many days pe r week do you engage in moderate to strenuous exercise (like a brisk walk)? 0 days 09/30/2022 On average, how many minutes do you engage in exercise at this level? 0 min 09/30/2022 Hunger Vital Sign Answer Date Recorded Within the past 12 months, y ou worried that your food would run out before you got the money to buy more. Never true 10/01/19 23 Within the past 12 months, t he food you bought just didn't last and you didn't have money to get more. Never true 09/30/2022 PRAPARE - Transportation Answer Date Re corded In the past 12 months, has l ack of transportation kept you from medical appointments or from getting medications? No 09/02 In the past 12 months, has l ack of transportation kept you from meetings, work, or from getting things needed for daily living? No 09/30/2022 Housing Stability Vital Sign Answer Danny e Recorded In the last 12 months, was t here a time when you were not able to pay the mortgage or rent on time? No 09/30/2022 In the last 12 months, how many places have you lived? 1 09/30/2022 In the last 12 months, was t here a time when you did not have a steady place to sleep or slept in a fci (including now)? No 09/30/2022 Comments No Sex and Gender Information Value Date Recorded Sex Assigned at Not on file Legal Sex Female 7:12 PM EDT Gender Identity Not on file Sexual Orientation Not on file documented as of this encounter Last Filed Vital Signs Vital Sign Reading Time Taken Comments Blood Pressure 118/78 11/09/2024 8:33 AM EDT Pulse - - Temperature - - Respiratory Rate - - Oxygen Saturation - - Inhaled Oxygen Concentration - - Weight 85.5 kg (188 lb 6.4 oz) 11/09/2024 8:33 A M EDT Height - - Body Mass Index 34.46 04/04/2024 3:14 PM EST documented in this encounter Progress Notes * Domenica Tim LPN - 11/09/2024 8:30 AM EDT Reason for Appointment: Patient ID: Socorro Garcia is a 44 y.o. female who presents for Well Women Visit Patient presents today for Annual Exam. MEDICATIONS Current Outpatient Medications Medication Instructions acyclovir (Zovirax) 5 % ointment Topical, 6 times daily, Space applications every 3 hours. aspirin 81 mg, Every 24 hours atorvastatin (LIPITOR) 40 mg, Oral, Daily busPIRone (Buspar) 5 MG tablet TAKE 1 TABLET BY MOUTH IN THE MORNING AND BEFORE BEDTIME dicyclomine (BENTYL) 20 mg, Oral, 3 times daily PRN fluticasone-salmeterol (Advair HFA) 230-21 MCG/ACT inhaler 2 puffs, Inhalation, 2 times daily RT, Rinse mouth with water after use to reduce aftertaste and incidence of candidiasis. Do not swallow. ibuprofen 800 MG tablet TAKE 1 TABLET BY MOUTH THREE TIMES A DAY NEEDED FOR MILD PAIN LORazepam (ATIVAN) 1 mg, Oral, Every 8 hours PRN olmesartan (BENICAR) 5 mg, Oral, Daily valACYclovir (Valtrex) 1 g tablet TAKE 1 TABLET BY MOUTH EVERY 12 HOURS ALLERGIES No Known Allergies PROBLEMS Active Ambulatory Problems Diagnosis Date Noted Anxiety 10/01/2022 Class 1 obesity 10/01/2022 Crohn's disease, unspecified, with unspecified complications (HCC) 10/01/2022 Genital warts 10/01/2022 Other chronic pain 10/01/2022 Primary insomnia 10/01/2022 Chronic sinusitis 10/01/2022 Tubular adenoma 10/01/2022 Hypertension 10/01/2022 Family history of brain aneurysm 10/01/2022 Shortness of breath 10/01/2022 Well adult exam 10/01/2022 Abnormal MRI 01/04/2024 Benign essential HTN 08/02/2023 Centrilobular emphysema (HCC) 08/02/2023 Depression 08/02/2023 Hyperlipidemia 01/04/2024 Left carotid artery occlusion 08/02/2023 Tobacco abuse 08/02/2023 Resolved Ambulatory Problems Diagnosis Date Noted Yeast infection 10/01/2022 Past Medical History: Diagnosis Date Carotid artery disease H/O Crohn's disease HISTORY PAST MEDICAL HISTORY SOCIAL HISTORY Past Medical History: Diagnosis Date Carotid artery disease left 100 % block Depression H/O Crohn's disease Social History Tobacco Use Smoking status: Former Current packs/day: 0.00 Types: Cigarettes Quit date: 05/03/2001 Years since quittin.5 Smokeless tobacco: Never Tobacco comments: Smokes 60 mins after waking up Thinking about quitting Vaping Use Vaping status: Some Days Substance Use Topics Alcohol use: Never Comment: caffeine: 1-2 cups per day soda Drug use: Never FAMILY HISTORY Family History Problem Relation Name Age of Onset Cancer Mother Lung Hyperlipidemia Brother Hypertension Brother Irritable bowel syndrome Brother Cancer Maternal Grandmother Colon Colon cancer Maternal Grandmother Melanoma Maternal Grandfather Alzheimer's disease Paternal Grandfather SURGICAL HISTORY Past Surgical History: Procedure Laterality Date ADENOIDECTOMY 05/16/2009 CERVICAL BIOPSY W/ LOOP ELECTRODE EXCISION HYSTERECTOMY 10/27/2015 LAPAROSCOPY DIAGNOSTIC / BIOPSY / ASPIRATION / LYSIS 03/13/2016 MR ANGIOGRAM HEAD WO IV CONTRAST 06/18/2023 MR ANGIOGRAM HEAD WO IV CONTRAST 06/18/2023 [facility] MR TONSILLECTOMY 05/16/2009 REVIEW OF SYSTEMS Review of Systems: Review of Systems Constitutional: Negative. HENT: Negative. Eyes: Negative. Respiratory: Negative. Cardiovascular: Negative. Gastrointestinal: Negative. Genitourinary: Negative. Musculoskeletal: Negative. Skin: Negative. Neurological: Negative. All other systems reviewed and are negative. Hematological: Negative. Endocrine: Negative. Allergic/Immunologic: Negative. OBJECTIVE Objective: Physical Exam Constitutional: Appearance: Normal appearance. She is well-developed. Genitourinary: Vulva normal. Vaginal cuff intact. Cervix is absent. Uterus is absent. Breasts: Breasts are soft. Right: Normal. Left: Normal. Cardiovascular: Rate and Rhythm: Normal rate and regular rhythm. Abdominal: General: Bowel sounds are normal. There is no distension. Palpations: Abdomen is soft. Tenderness: There is no abdominal tenderness. There is no guarding or rebound. Musculoskeletal: General: No swelling. Normal range of motion. Right lower leg: No edema. Left lower leg: No edema. Neurological: Mental Status: She is alert and oriented to person, place, and time. Skin: General: Skin is warm and dry. Psychiatric: Mood and Affect: Mood normal. Behavior: Behavior normal. Vitals and nursing note reviewed. Exam conducted with a field administrative assistant present. Vitals: Estimated body mass index is 34.46 kg/m?? as calculated from the following: Height as of 04/04/24: 5' 2 . Weight as of this encounter: 188 lb 6.4 oz. BP: 118/78 No LMP recorded. Patient has had a hysterectomy. ASSESSMENT & PLAN ICD-10-CM 1. Well woman exam with routine gynecological exam Z01.419 THIN PREP TIS PAP AND HR HPV DNA 2. Breast cancer screening by mammogram Z12.31 Bilateral screening mammogram Bilateral screening mammogram Annual: Patient presents today for an annual exam. Patient states she is doing well and has complaints of needing wart assessed in perianal area. Placed TCA on area and patient aware that if wart comes back patient is able to reach out to office to schedule appointment for assessment and possible TCA treatment again. Pap was obtained without difficulty and patient given mammogram order to have scheduled/obtained. Orders Placed This Encounter Procedures Bilateral screening mammogram Follow Up: Patient is to return in one year for annual unless needed otherwise. Documented by Domenica Tim LPN on behalf of: Chandan Hendrix DO documented in this encounter Plan of Treatment Scheduled Orders Name Type Priority Associated Diagnoses Orde r Schedule Bilateral screening mammogram Imaging Routine Breast cancer screening by mammogram Expected: 11/09/2024 (Approximate), Expires: 01/10/2026 THIN PREP TIS PAP AND HR HPV DNA Pathology and Cytology Routine Well woman exam with routine gynecological exam Ordered: 11/09/2024 documented as of this encounter Visit Diagnoses Diagnosis Well woman exam with routine gynecological exam Routine gynecological examination Breast cancer screening by mammogram documented in this encounter Care Teams Food Adviser Relationship Specialty Start Date End Date Frida Garsia MD [address] [place] [address] PCP - General Family Medicine 09/29/22 Frida Garsia MD [address] [place] [address] PCP - Medical [place] [employer] 10/31/18 05/02/99 documented as of this encounter
--- OUTSIDE RECORDS SUMMARY | 2024-11-11 09:58 | XMS_ITS | CCD ---
Author Organization [facility] Care Team Providers Care Behaviour Support Teacher Name Role Phone DR SUSAN HENDRIX Attending Unavailable SIMEON, DR DAVIS Consulting Unavailable DR SUSAN HENDRIX Admitting Unavailable FRIDA GARSIA Primary Care Unavailable MD Frida Garsia Primary Care Provider MD Steven Rose Attending Provider Frida Garsia MD Primary Care Provider [phone] Frida Garsia MD Unavailable [phone] MD Frida Garsia Attending Provider Frida Garsia MD Unavailable Frida Garsia MD Primary Care Provider [phone] CATHI DIANE Attending Unavailable FRIDA GARSIA Referring Unavailable FRIDA GARSIA Primary Care Unavailable MD Frida Garsia Primary Care Provider [phone] MD Frida Garsia Attending Provider Frida Garsia MD Unavailable DO Kael Shabazz Referring Provider FRIDA GARSIA Attending Unavailable FRIDA GARSIA Referring Unavailable DAMON FRIDA M Attending Unavailable SUSAN HENDRIX Attending Unavailable ABI CARRERA Attending Unavailable FRIDA GARSIA Attending Unavailable FRIDA GARSIA Attending Unavailable Frida Garsia MD Primary Care Provider Mane Abernathy MD Attending Provider [phone] Frida Garsia Admitting Unavailable Frida Garsia Primary Care Unavailable Frida Garsia Attending Unavailable Kael Shabazz Referring Unavailable Mane Abernathy Attending Unavailtrent Oscar Bricei Primary Care Unavailable Mane Abernathy Admitting UnavailFrida Kuhn Admitting Unavailable Frida Garsia Primary Care Unavailable Frida Garsia Attending Unavailable Medications Current Medications Medication Drug Class(es) Dates Sig (Normalized) Sig (Original) acyclovir 0.05 mg/mg topical ointment (19 sources) Herpesvirus Nucleoside Analog DNA Polymerase Inhibitor, Herpes Simplex Virus Nucleoside Analog DNA Polymerase Inhibitor, Herpes Zoster Virus Nucleoside Analog DNA Polymerase Inhibitor Start: 03-01-2023 acyclovir (Zovirax) 5 % ointment Indications: Cold sore Apply topically 6 (six) times a day. Space applications every 3 hours. 30 g 3 03/01/2023 Active Comment on above: Apply to affected ar ea as needed. aspirin 81 mg delayed release oral tablet (16 sources) Platelet Aggregation Inhibitor, Nonsteroidal Anti-inflammatory Drug Start: 06-28-2024 Aspirin (Adult Low Dose Aspirin) 81 mg tablet,delayed release (DR/EC) Active 81 MG PO Daily June 28, 2024 12:00am take 2 capsules by mouth once da day aspirin 81 mg cap Take 162 mg by mouth once daily. 0 Active Comment on above: Take 162 mg by mouth once daily. atorvastatin 40 mg oral tablet (20 sources) HMG-CoA Reductase Inhibitor Start: take 1 tablet by mouth once daily atorvastatin (Lipitor) 40 MG tablet Indications: Hyperlipidemia, unspecified hyperlipidemia type TAKE 1 TABLET BY MOUTH EVERY DAY 90 tablet 10/23/2024 Active Start: 07-11-2024 End: 10-09-2024 take 1 tablet by mouth once daily atorvastatin (Lipitor) 40 MG tablet Indications: Hyperlipidemia, unspecified hyperlipidemia type (CMS/HCC) Take 1 tablet (40 mg) by mouth Daily 30 tablet 2 07/11/2024 10/09/2024 Active Start: 07-01-2023 take 1 tablet by edward th once daily Atorvastatin 40 mg tablet Active 40 MG PO Daily 90 July 01, 2023 12:00am Start: 07-01-2023 End: 06-28-2024 take 1 tablet by mouth once daily Atorvastatin 20 mg tablet Discontinued 20 MG PO Daily July 01, 2023 12:00am June 28, 2024 9:35am Comment on above: Take 1 tablet by edward th every morning. busPIRone hydrochloride 5 mg oral tablet (15 sources) Start: 01-04-20 End: 01-04-20 take 1 tablet by mouth at bedtime busPIRone (Buspar) 5 MG tablet Indications: Anxiety TAKE 1 TABLET BY MOUTH IN THE MORNING AND BEFORE BEDTIME 180 tablet 1 08/02/2024 Active dicyclomine hydrochloride 20 mg oral tablet (19 sources) Anticholinergic Start: 12-09-19 take 1 tablet by mouth three times daily as needed dicyclomine (Bentyl) 20 MG tablet Indications: Nausea , Flatulence/gas pain/belching , Diarrhea, unspecified type , Abdominal bloating with cramps Take 1 tablet (20 mg) by mouth 3 (three) times a day as needed (abdominal cramping) 21 tablet 12/09/2023 Active Start: 12-15-2022 dicyclomine (B ENTYL) 20 mg tablet Take 20 mg by mouth as needed. 0 12/15/2022 Active Comment on above: Take 20 mg by mouth as needed. 120 actuat fluticasone propionate 0.23 mg/actuat / salmeterol 0.021 mg/actuat metered dose inhaler (8 sources) Corticosteroid, beta2-Adrenergic Agonist Start : 04-04 End: 04-04 take 2 puff(s) by inhalation in the morning fluticasone-salmeterol (Advair HFA) 230-21 MCG/ACT inhaler Indications: Mild persistent asthma without complication (HCC) Inhale 2 puffs in the morning and 2 puffs before bedtime. Rinse mouth with water after use to reduce aftertaste and incidence of candidiasis. Do not swallow.. 12 g 3 04/04/2024 04/04/2025 Active hydroCHLOROthiazide 25 mg oral tablet (4 sources) Thiazide Diuretic Start : 10-24 take 1 tablet by mouth once daily in the morning hydroCHLOROthiazide (HYDRODiuril) 25 MG tablet Indications: Hypertension, unspecified type (CMS/HCC) TAKE 1 TABLET BY MOUTH EVERY DAY IN THE MORNING 30 tablet 11 10/24/2022 Active hydroCHLOROthiazide 12.5 mg / olmesartan medoxomil 20 mg oral tablet (2 sources) Thiazide Diuretic, Angiotensin 2 Receptor Paco Start : 06-15 take 1 tablet by mouth in the morning olmesartan-hydroCHLOROth iazide (Benicar HCT) 20-12.5 MG tablet Indications: Hypertension, unspecified type (CMS/HCC) Take 1 tablet by mouth in the morning. 90 tablet 3 06/15/2023 Active ibuprofen 800 mg oral tablet (20 sources) Nonsteroidal Anti-inflammatory Drug Start : 01-03 End: 07-28 take 1 tablet by mouth three times daily as needed for pain ibuprofen 800 MG tablet Indications: Other chronic pain TAKE 1 TABLET BY MOUTH THREE TIMES A DAY NEEDED FOR MILD PAIN 90 tablet 1 07/28/2024 Active Start: 11-26-2022 End: 01-04-2024 take 1 tablet by mouth every eight hours as needed ibuprofen 800 MG tablet Indications: Other chronic pain TAKE 1 TABLET BY MOUTH EVERY 8 HOURS NEEDED FOR 30 DAYS 90 tablet 1 11/26/2022 01/04/2024 Discontinued (Reorder) Comment on above: Take 800 mg by mouth as needed. LORazepam 1 mg oral tablet (20 sources) Benzodiazepine Start: 10-01-19 End: 01-04-20 24 take 1 tablet by mouth every eight hours as needed for anxiety and anxiety and anxiety LORazepam (Ativan) 1 MG tablet Indications: Anxiety Take 1 tablet (1 mg) by mouth every 8 (eight) hours if needed for anxiety 30 tablet 01/04/2024 Active Comment on above: Take 1 mg by mouth a s needed. olmesartan medoxomil 5 mg oral tablet (16 sources) Angiotensin 2 Receptor Paco Start: 10-14-19 End: 10-14-19 25 take 1 tablet by mouth once daily olmesartan (BENIcar) 5 MG tablet Indications: Hypertension, unspecified type TAKE 1 TABLET BY MOUTH EVERY DAY 90 tablet 1 06/28/2024 Active valACYclovir 1000 mg oral tablet (19 sources) Herpesvirus Nucleoside Analog DNA Polymerase Inhibitor, Herpes Simplex Virus Nucleoside Analog DNA Polymerase Inhibitor, Herpes Zoster Virus Nucleoside Analog DNA Polymerase Inhibitor Start: 10-14-19 24 take 1 tablet by mouth every twelve hours valACYclovir (Valtrex) 1 g tablet Indications: Cold sore TAKE 1 TABLET BY MOUTH EVERY 12 HOURS 180 tablet 2 10/14/2023 Active Start: 03-17-2023 valACYclovir ( VALTREX) 1 gram tablet Take 1 tablet by mouth as needed. 0 03/17/2023 Active Comment on above: Take 1 tablet by edward th as needed. varenicline 1 mg oral tablet (20 sources) Partial Cholinergic Nicotinic Agonist Start: 06-15-2023 End: 11-09-2024 varenicline (Chantix) 1 MG tablet Take 1 mg by mouth 07/01/2023 11/09/2024 Discontinued (Other) Start: 06-15-2023 take 0.5 tablet by m outh in the morning varenicline (Chantix) 1 MG tablet Indications: Tobacco abuse Take 0.5 tablets (0.5 mg) by mouth in the morning and 0.5 tablets (0.5 mg) before bedtime. Take with full glass of water.. 60 tablet 0 06/15/2023 Active Problems Active Problems Problem Classification Problem Date Documented Date Episodic/Chronic Administrative/social admission (2 sources) Counseling procedure with explicit context; Translations: [Tobacco abuse counseling] 06-15-2023 Episodic Anxiety disorders (20 sources) Anxiety; Translations: [Anxiety disorder, unspecified] Onset: 10-01-2022 10-01-2022 Chronic Asthma (2 sources) Uncomplicated mild persistent asthma; Translations: [Mild persistent asthma, uncomplicated] 04-04-2024 Chronic Chronic obstructive pulmonary disease and bronchiectasis (16 sources) Centriacinar emphysema; Translations: [Centrilobular emphysema] Onset: 08-02-2023 08-02-2023 Chronic Disorders of lipid metabolism (14 sources) Hyperlipidemia; Translations: [Hyperlipidemia, unspecified] Onset: 01-04-2024 01-04-2024 Chronic Essential hypertension (20 sources) Hypertensive disorder; Translations: [Essential (primary) hypertension] Onset: 10-01-2022 10-01-2022 Chronic Immunizations and screening for infectious disease (1 source) Encounter for screening for human papillomavirus (HPV); Translations: [ENC SCREENING HUMAN PAPILLOMAVIRUS] Onset: 03-09-2022 Episodic Miscellaneous mental health disorders (18 sources) Primary insomnia; Translations: [Primary insomnia] Onset: 10-01-2022 10-01-2022 Chronic Mood disorders (16 sources) Depressive disorder; Translations: [Depression, unspecified depression type] Onset: 08-02-2023 08-02-2023 Chronic Occlusion or stenosis of precerebral arteries (20 sources) Left carotid artery occlusion; Translations: [Occlusion and stenosis of left carotid artery] Onset: 08-02-2023 07-14-2023 Chronic Other nervous system disorders (20 sources) Chronic pain; Translations: [Other chronic pain] Onset: 10-01-2022 10-01-2022 Chronic Other nutritional; endocrine; and metabolic disorders (18 sources) Obese class I; Translations: [Obesity, unspecified] Onset: 10-01-2022 10-01-2022 Chronic Other screening for suspected conditions (not mental disorders or infectious disease) (17 sources) MRI scan abnormal; Translations: [Abnormal findings on diagnostic imaging of other specified body structures] Onset: 01-04-2024 07-01-2023 Chronic Other screening for suspected conditions (not mental disorders or infectious disease) (9 sources) Encounter for screening for malignant neoplasm of cervix; Translations: [Patient encounter status] Onset: 03-06-2022 Episodic Other upper respiratory infections (18 sources) Chronic sinusitis; Translations: [Chronic sinusitis, unspecified] Onset: 10-01-2022 10-01-2022 Chronic Regional enteritis and ulcerative colitis (20 sources) Crohn's disease; Translations: [Crohn's disease, unspecified, with unspecified complications] Onset: 10-01-2022 10-01-2022 Chronic Past or Other Problems Problem Classification Problem Date Documented Da te Episodic/Chronic Mycoses (18 sources) Mycosis; Translations: [Candidiasis, unspecified] Onset: 10-01-2022 Resolved: 10-01-2022 10-01-2022 Episodic Other and unspecified benign neoplasm (18 sources) Tubular adenoma ; Translations: [Benign neoplasm, unspecified site] Onset: 10-01-2022 10-01-2022 Episodic Other lower respiratory disease (20 sources) Dyspnea; Translations: [Shortness of breath] Onset: 10-01-2022 10-01-2022 Episodic Other lower respiratory disease (1 source) Shortness of breath; Translations: [Shortness of breath] Onset: 02-24-2024 Episodic Residual codes; unclassified (20 sources) Family history of aneurysm of artery; Translations: [Family history of ischemic heart disease and other diseases of the circulatory system] Onset: 10-01-2022 10-01-2022 Episodic Residual codes; unclassified (20 sources) Tobacco user; Translations: [Tobacco use] Onset: 08-02-2023 06-15-2023 Episodic Residual codes; unclassified (2 sources) [id number] electronic cigarette user; Translations: [Other problems related to lifestyle] 01-05-2024 Episodic Viral infection (18 sources) Genital warts; Translations: [Anogenital (venereal) warts] Onset: 10-01-2022 10-01-2022 Episodic Results Test Name Value Interpretation Reference Range Facility US carotid doppler BIon 06-04 US carotid doppler BI [facility] [address] [place] [address] Ultrasound Report Signed Patient: Socorro Garcia MR#: [id number] : 1980 Acct:[id number] Age/Sex: 43 / F ADM Date: 06/28/24 Loc: [facility] Room: Type: [facility] Attending Dr: Mane Abernathy MD Ordering Provider: Mane Abernathy MD Date of Service: 06/28/24 US/US carotid doppler BI: I65.29 - Occlusion and stenosis of unspecified carotid ar... Copies to: Mane Abernathy MD CAROTID DUPLEX INDICATION: Surveillance study for known left carotid occlusion. PROCEDURE: Color-flow duplex scanning is used to interrogate the extracranial carotid arterial system, as well as both vertebral arteries. The proximal right internal carotid artery shows a highest peak systolic velocity of 120 cm/s with an end-diastolic velocity of 47.6 cm/s . The mid internal carotid artery measures 106 cm/s peak systolic with an end-diastolic velocity of 54.6 cm/s . The distal segment measures 124 cm/s peak systolic with an end diastolic velocity of 68 cm/s . The velocities of the right common carotid artery are 144 cm/s peak systolic and 39.9 cm/s end- diastolic proximally and 203 cm/s peak systolic and 61.5 cm/s end-diastolic distally. The peak systolic velocity ratio of the internal to the common carotid artery is 0.61 . The right external carotid artery measures 121 cm/s peak systolic. The right vertebral artery is patent at 132 cm/s peak systolic and with antegrade flow. The proximal left internal carotid artery shows chronic occlusion. The velocities of the left common carotid artery are 175 cm/s peak systolic and 30 cm/s end-diastolic proximally and 150 cm/s peak systolic and 31.4 cm/s end-diastolic distally. The left external carotid artery measures 122 cm/s peak systolic. The left vertebral artery is patent at 106 cm/s peak systolic with antegrade flow. US/US carotid doppler BI IMPRESSION: NO HEMODYNAMICALLY SIGNIFICANT STENOSIS OF THE RIGHT EXTRACRANIAL INTERNAL CAROTID ARTERY. BOTH VERTEBRAL ARTERIES ARE PATENT WITH ANTEGRADE FLOW. The left internal carotid artery is occluded, chronically. Impression dictated by: Mane Abernathy MD06/28/2024 11:55 AM Dictation Location: [place] [address] Tech: Rea Nguyen Transcribed By: ALFONSO 06/28/24 1155 Dictated By: Mane Abernathy MD 06/28/24 1153 Signed By: 06/28/24 1155 Normal [facility] STR cardiac stress/regularon 02-24-2024 STR cardiac stress/regular [facility] [place] [address] Cardiac Stress Test Signed Patient: Socorro Garcia MR#: [id number] : 1980 Acct:[id number] Age/Sex: 43 / F ADM Date: 02/24/24 Loc: Room: Type: [facility] Attending Dr: Frida Garsia MD Copies to: MD Mayank Singleton MD Ordering Provider: Frida Garsia MD Date of Service: 02/24/24 STR/STR cardiac stress/regular: SOB, HTN REFERRING PHYSICIAN: Frida Garsia MD PROCEDURE: The patient underwent graded exercise stress test with the Ignacio protocol. The patient was able to exercise for a 7 minutes 44 seconds, achieving workload of 9.6 METS Maximum heart rate was 105 beats per minute, corresponding to 87% of maximum predicted heart rate. Maximum blood pressure was 168/82. No chest pain was reported. Blood pressure and heart response to exercise was physiologic. Baseline ECG showed normal sinus rhythm. No ST changes. Following exercise, no changes were seen. CONCLUSION: 1. Graded exercise stress test without diagnostic ST-T changes for ischemia. 2. No provoked chest pain or arrhythmia. 3. Appropriate hemodynamic response to exercise. 4. Good exercise tolerance. 5. Normal heart recovery phase. 6. No previous study available for comparison. Transcribed By: KAYLA 02/25/24 0808 Dictated By: Mayank Gutierrez MD 02/24/24 1637 Signed By: 02/25/24 1501 Normal [facility] Alanine aminotransferase [En zymatic activity/volume] in Serum or PlasmaOrdered By: Frida Garsia on 01-01-2024 ALT [Catalytic activity/Vol] 19 U/L Normal 7-52 [facility] Comment on above: Performed By: #### L IPID, T4F, TSH3, CMP #### [facility] [address] [place] [address] Albumin [Mass/volume] in Ser um or Plasma by Bromocresol green (BCG) dye binding methoOrdered By: Frida Garsia on 01-01-2024 Albumin BCG dye [Mass/Vol] 4.0 g/dL 3.5-5.7 [facility] Alkaline phosphatase [Enzyma tic activity/volume] in Serum or PlasmaOrdered By: Frida Garsia on 01-01-2024 ALP [Catalytic activity/Vol] 64 U/L Normal 34-104 [facility] Comment on above: Performed By: #### L IPID, T4F, TSH3, CMP #### [facility] [address] Aspartate aminotransferase [ Enzymatic activity/volume] in Serum or PlasmaOrdered By: Frida Garsia on 01-01-2024 AST [Catalytic activity/Vol] 15 U/L Normal 13-39 [facility] Comment on above: Performed By: #### L IPID, T4F, TSH3, CMP #### [facility] [address] Bilirubin.total [Mass/volume ] in Serum or PlasmaOrdered By: Frida Garsia on 01-01-2024 Bilirubin [Mass/Vol] 0.4 mg/dL Normal 0.3-1.[address] [facility] Comment on above: Performed By: #### L IPID, T4F, TSH3, CMP #### [facility] [address] [place] [address] [place] Calcium [Mass/volume] in Ser um or PlasmaOrdered By: Frida Garsia on 01-01-2024 Calcium [Mass/Vol] 8.7 mg/dL Normal 8.6-10.3 [facility] Comment on above: Performed By: #### L IPID, T4F, TSH3, CMP #### [address] Carbon dioxide, total [Moles /volume] in Serum or PlasmaOrdered By: Frida Garsia on 01-01-2024 CO2 [Moles/Vol] 24.2 mmol/L Normal 21.0-31.0 [facility] Comment on above: Performed By: #### L IPID, T4F, TSH3, CMP #### [place] [address] [place] Chloride [Moles/volume] in [place] or PlasmaOrdered By: Frida Garsia on 01-01-2024 Chloride [Moles/Vol] 111 mmol/L High 98-[address] [facility] Comment on above: Performed By: #### L IPID, T4F, TSH3, CMP #### [place] [address] [place] Cholesterol [Mass/volume] in Serum or PlasmaOrdered By: Frida Garsia on 01-01-2024 Cholesterol [Mass/Vol] 85 mg/dL Low 140-200 [facility] Comment on above: Chol less than 200 m g/dl low riskChol 201-239 mg/dl borderline riskChol 240 mg/dl and greater high risk Result Comment: Chol less than 200 mg/dl low risk Chol 201-239 mg/dl borderline risk Chol 240 mg/dl and greater high risk Performed By: #### L IPID, T4F, TSH3, CMP #### [place] [address] [place] Cholesterol in LDL Calc [Mas s/Vol]Ordered By: Frida Garsia on 01-01-2024 Cholesterol in LDL [Mass/Vol] 41 mg/dL 0-100 [facility] Comment on above: LDL ATP III CLASSIFI CATIONLDL less than 100 mg/dL OptimalLDL 100-129 mg/dL Near or above optimalLDL 130-159 mg/dL Borderline highLDL 160-189 mg/dL HighLDL greater than 189 mg/dL Very high Cholesterol in VLDL Calc [Ma ss/Vol]Ordered By: Frida Garsia on 01-01-2024 Cholesterol in VLDL [Mass/Vol] 12 mg/dL [facility] Comprehensive Metabolic Pane justin 01-01-2024 Albumin [Mass/Vol] 4.0 g/dL Normal 3.5-5.7 [facility] Comment on above: Performed By: #### L IPID, T4F, TSH3, CMP #### [facility] [address] GFR/1.73 sq M.predicted MDRD (S/P/Bld) [Vol rate/Area] mL/min/{1.73_m2} Normal [facility] Comment on above: Performed By: #### L IPID, T4F, TSH3, CMP #### [facility] [address] [place] [address] [place] Creatinine [Mass/volume] in Serum or PlasmaOrdered By: Frida Garsia on 01-01-2024 Creatinine [Mass/Vol] 0.72 mg/dL Normal 0.60-1.20 [facility] Comment on above: Performed By: #### L IPID, T4F, TSH3, CMP #### [facility] [address] [place] [address] [place] Erythrocyte distribution wid th [Ratio] by Automated countOrdered By: Frida Garsia on 01-01-2024 Erythrocyte distribution width (RBC) [Ratio] 13.0 % Normal 11.9-15.3 [facility] Comment on above: Performed By: #### C BCNO #### [facility] [address] [place] [address] [place] Erythrocytes [#/volume] in B lood by Automated countOrdered By: Frida Olivodilshad on 01-01-2024 RBC (Bld) [#/Vol] 4.29 10*6/uL Normal 3.60-5.00 [facility] Comment on above: Performed By: #### C BCNO #### [address] Glucose [Mass/volume] in Ser um or PlasmaOrdered By: Frida Rabagoanabell on 01-01-2024 Glucose [Mass/Vol] 93 mg/dL Normal 70-100 [facility] Comment on above: ADA recommended refe rence rangeRandom Glucose Reference Range is dependent on time and content of last meal. Glucose of more than 200 mg/dL in a nonstressed, ambulatory subject supports the diagnosis of Diabetes Mellitus. Result Comment: [place] om Glucose Reference Range is dependent on time and content of last meal. Glucose of more than 200 mg/dL in a nonstressed, ambulatory subject supports the diagnosis of Diabetes Mellitus. ADA recommended reference range Performed By: #### L IPID, T4F, TSH3, CMP #### [address] Hematocrit [Volume Fraction] of Blood by Automated countOrdered By: Frida Rabagoanabell on 01-01-2024 Hematocrit (Bld) [Volume fraction] 39.6 % Normal 34.0-46.4 [facility] Comment on above: Performed By: #### C BCNO #### [address] Hemoglobin [Mass/volume] in BloodOrdered By: Frida Rabagoanabell on 01-01-2024 Hemoglobin (Bld) [Mass/Vol] 13.4 g/dL Normal 11.8-15.4 [facility] Comment on above: Performed By: #### C BCNO #### [address] Hemogram CBC Without Diffon 01-01-2024 Mean Corpuscular HGB Conc 34.0 g/dL Normal 32.0-35.0 [facility] Comment on above: Performed By: #### C BCNO #### [facility] [address] WBC (Bld) [#/Vol] 6.4 10*3/uL Normal 3.8-11.6 [facility] Comment on above: Performed By: #### C BCNO #### [facility] [address] Leukocytes [#/volume] correc costa for nucleated erythrocytes in Blood by Automated counOrdered By: Frida Garsia on 01-01-2024 WBC corrected for nucl RBC Auto (Bld) [#/Vol] 6.4 10*3/uL 3.8-11.6 [facility] Lipid Panelon 01-01-2024 LDL Cholesterol,Calculated 41 mg/dL Normal 0-100 [facility] Comment on above: Result Comment: LDL ATP III CLASSIFICATION LDL less than 100 mg/dL Optimal LDL 100-129 mg/dL Near or above optimal LDL 130-159 mg/dL Borderline high LDL 160-189 mg/dL High LDL greater than 189 mg/dL Very high Performed By: #### L IPID, T4F, TSH3, CMP #### [address] Triglyceride w/Reflex 64 mg/dL Normal 0-149 [facility] Comment on above: Result Comment: TRIG ATP III CLASSIFICATION TRIG less than 150 mg/dL Normal TRIG 150-199 mg/dL Borderline high TRIG 200-500 mg/dL High TRIG greater than 500 mg/dL Very high Standard traceable to the Center for Disease Conrtrol and Prevention (CDC) test method. Performed By: #### L IPID, T4F, TSH3, CMP #### [facility] [address] VLDL CHOLESTEROL 12 mg/dL Normal [facility] Comment on above: Performed By: #### L IPID, T4F, TSH3, CMP #### [facility] [address] MCH [Entitic mass] by Automa costa countOrdered By: Frida Garsia on 01-01-2024 MCH (RBC) [Entitic mass] 31.4 pg Normal 24.7-34.3 [facility] Comment on above: Performed By: #### C BCNO #### [address] MCHC Auto (RBC) [Mass/Vol]Or dered By: Fridamahesh Garsia on 01-01-2024 MCHC (RBC) [Mass/Vol] 34.0 g/dL 32.0-35.0 [facility] MCV [Entitic volume] by Auto mated countOrdered By: Frida Garsia on 01-01-2024 MCV (RBC) [Entitic vol] 92.4 fL Normal 80-100 [facility] [facility] Comment on above: Performed By: #### C BCNO #### [address] No Panel InformationOrdered By: Frida Garsia on 01-01-2024 Estimated GFR (CKD-EPI) > 60.0 mL/Min [facility] Creatinine Clearance (Chem N/A [facility] Platelet mean volume [Entiti c volume] in Blood by Automated countOrdered By: Frida Garsia on 01-01-2024 Platelet mean volume (Bld) [Entitic vol] 8.4 fL Normal 6.3-10.7 [facility] Comment on above: Result Comment: PERF ORMED BY: [place] [address] PATHOLOGIST [employer] ANIMAL VETERINARIAN ERIK YEE M.D. Performed By: #### C BCNO #### [address] Platelets [#/volume] in Bloo d by Automated countOrdered By: Frida Garsia on 01-01-2024 Platelets (Bld) [#/Vol] 276 10*3/uL Normal 150-450 [facility] Comment on above: Performed By: #### C BCNO #### [address] Potassium [Moles/volume] in Serum or PlasmaOrdered By: Frida Garsia on 01-01-2024 Potassium [Moles/Vol] 4.2 mmol/L Normal 3.5-5.1 [facility] Comment on above: Performed By: #### L IPID, T4F, TSH3, CMP #### [address] Protein [Mass/volume] in Ser um or PlasmaOrdered By: Frida Garsia on 01-01-2024 Protein [Mass/Vol] 6.6 g/dL Normal 6.4-8.9 [facility] Comment on above: Performed By: #### L IPID, T4F, TSH3, CMP #### [address] Serum globulin measurement b y calculation (mass/volume)Ordered By: Frida Garsia on 01-01-2024 Globulin (S) [Mass/Vol] 2.6 g/dL Normal [facility] Comment on above: Performed By: #### L IPID, T4F, TSH3, CMP #### [address] Serum or plasma albumin/glob ulin mass ratioOrdered By: Frida Garsia on 01-01-2024 Albumin/Globulin [Mass ratio] 1.5 {ratio} Normal [facility] Comment on above: Performed By: #### L IPID, T4F, TSH3, CMP #### [address] Serum or plasma anion gap de terminationOrdered By: Frida Garsia on 01-01-2024 Anion gap [Moles/Vol] 9.0 mmol/L Normal 6.0-15.0 [facility] Comment on above: Performed By: #### L IPID, T4F, TSH3, CMP #### [address] Serum or plasma high density lipoprotein (HDL) cholesterol measurementOrdered By: Frida Garsia on 01-01-2024 Cholesterol in HDL [Mass/Vol] 31 mg/dL Normal 23-92 [facility] Comment on above: HDL CHOL ATP-III CLA SSIFICATION Cardiovascular RiskHDL > or equal to 60 mg/dL LOWHDL < 40 mg/dL HIGH Result Comment: HDL CHOL ATP-III CLASSIFICATION Cardiovascular Risk HDL > or equal to 60 mg/dL LOW HDL < 40 mg/dL HIGH Performed By: #### L IPID, T4F, TSH3, CMP #### [address] Serum or plasma total choles terol/high density lipoprotein (HDL) cholesterol mass ratOrdered By: Frida Garsia on 01-01-2024 Cholesterol.total/Choles terol in HDL [Mass ratio] 2.7 {ratio} Normal <5.0 [facility] Comment on above: Performed By: #### L IPID, T4F, TSH3, CMP #### [address] Sodium [Moles/volume] in Ser um or PlasmaOrdered By: Frida Garsia on 01-01-2024 Sodium [Moles/Vol] 140 mmol/L Normal 136-145 [facility] Comment on above: Performed By: #### L IPID, T4F, TSH3, CMP #### [address] Thyrotropin [Units/volume] i n Serum or PlasmaOrdered By: Frida Garsia on 01-01-2024 TSH Qn 1.46 m[IU]/L Normal 0.45-5.33 [facility] Comment on above: Result Comment: PERF ORMED BY: [place] [address] PATHOLOGIST [employer]INARIAN ERIK YEE M.D. Performed By: #### L IPID, T4F, TSH3, CMP #### [address] Thyroxine (T4) free [Mass/vo lume] in Serum or PlasmaOrdered By: Frida Garsia on 01-01-2024 Free T4 [Mass/Vol] 0.73 ng/dL Normal 0.61-1.12 [facility] Comment on above: Performed By: #### L IPID, T4F, TSH3, CMP #### [facility] [address] [address] [facility] Triglyceride [Mass/volume] i n Serum or PlasmaOrdered By: Frida Garsia on 01-01-2024 Triglyceride [Mass/Vol] 64 mg/dL 0-149 [facility] Comment on above: TRIG ATP III CLASSIF ICATIONTRIG less than 150 mg/dL NormalTRIG 150-199 mg/dL Borderline highTRIG 200-500 mg/dL High TRIG greater than 500 mg/dL Very highStandard traceable to the Center for Disease Conrtrol and Prevention (CDC) test method. Urea nitrogen [Mass/volume] in Serum or PlasmaOrdered By: Frida Garsia on 01-01-2024 Urea nitrogen [Mass/Vol] 11 mg/dL Normal 7-25 [facility] Comment on above: Performed By: #### L IPID, T4F, TSH3, CMP #### [facility] [address] [address] [facility] CNOVon 08-02-2023 CNOV Office Visit (NAHEED ) SOCORRO GARCIA ([id number]) 1980 F Date Time Provider Department 08/02/23 10:30 AM CATHI DIANE During your visit today, we recorded the following information about you: Temperature Pulse Respiration Blood pressure 98.1 degrees 78/minute 14/minute 134/88 Weight Height 80.2 kg 1.619 m Cathi Diane MD 08/02/2023 10:32 AM Addendum [facility] [place] DEPARTMENT OF VASCULAR SURGERY OUTPATIENT VISIT DATE August 02, 2023 OUTPATIENT VISIT TYPE CONSULTATION SERVICE DATE: 08/02/2023 SERVICE TIME: 10:06 AM PRIMARY CARE PHYSICIAN: Frida Garsia MD, MD REFERRING PROVIDER: Frida Garsia MD ([facility]) [address] [place] [id number] Consult requested for an opinion regarding the [...] intracranial ca (more content not included)... Normal [facility] Chung 07-28-2023 NEGRO Telephone ([employer]) PRAMODSOCORRO Felicia ([id number]) 1980 F Date Time Provider Department 07/28/23 KALYAN GUZMAN During your visit today, we recorded the following information about you: Brenda Warren 07/28/2023 9:23 AM Signed Study TItle: Risk Assessment of Stroke Using Non-Invasive Ultrasonic Backscatter from Carotid Plaque (RUNUP) IRB#: [id number] PI: Destiny Ortiz, PhD Phone#: [phone] COORDINATOR/Research Nurse/Quantitative Developer: Kalyan Guzman, PhD or Brenda Warren or [phone] Pager: [phone] Recruitment Telephone Contact to introduce the study [...] questions feel free to contact me at [phone]. REMINDER Confirm the scheduled date and time of their Ultrasound Exam with the subject. Brenda Warren Allergies As of Date: 07/28/2023 (Not on File) Date Reviewed: Never Reviewed Reason for Visit: Research [293] Problem List As Of Date: 07/28/2023 (None) Encounter Status:Closed by BRENDA WARREN on 07/28/23 [facility] Chung 07-13-2023 [facility] Telephone ([facility]) SCOORRO GARCIA ([id number]) 1980 F Date Time Provider Department 07/13/23 NO PCP PODCCP During your visit today, we recorded the following information about you: Marina Brown 07/13/2023 10:08 AM Signed Reason for call: Pt called and she would like to schedule an appt with Dr Cathi Diane. Home and cell number: [phone] Diagnosis: Oclusion of left carotid artery Marina Thompson [place] Edda Rod 07/14/2023 1:26 PM Signed Carter sinclair This patient states there was an ultrasound done at [facility], under Dr. Abernathy, can you please obtain images. Patient also states had a mri at [facility]. Can you please request images from both facilities? THX Allergies As of Date: 07/13/2023 (Not on File) Date Reviewed: Never Reviewed Reason for Visit: Appointment [186] Problem List As Of Date: 07/13/2023 (None) Encounter Status:Closed by MARINA BROWN on 07/13/23 Normal [facility] MR ANGIOGRAM HEAD WO IV CONT [facility] 06-18-2023 MR ANGIOGRAM HEAD WO IV CONTRAST [...] 30 to 65on 03-13-2022 . . Normal [facility] Comment on above: Result Comment: Perf ormed at: BA Performed By: #### [id number] #### [facility] [address] [place] [address] Dr. Devi Ji Age Gdln ACOG Testing 30-65 Normal [facility] Comment on above: Performed By: #### 4 [id number] #### [facility] [address] [place] [address] Dr. Devi Ji DIAGNOSIS: Comment Normal [facility] Comment on above: Result Comment: NEGA TIVE FOR INTRAEPITHELIAL LESION OR MALIGNANCY. Performed at: BA Performed By: #### 4 [id number] #### [facility] [address] [place] [address] Dr. Devi Ji HPV Aptima Negative Normal Negative [facility] Comment on above: Result Comment: This nucleic acid amplification test detects fourteen high-risk HPV types (16,18,31,33,35,39,45,51,52,56,58,59,66,68) without differentiation. Performed at: =G Performed By: #### 4 [id number] #### [facility] [address] [place] [address] Dr. Devi Ji HPV Genotype Reflex Comment Normal [facility] Comment on above: Result Comment: Crit eria not met, HPV Genotype not performed. Performed at: BA Performed By: #### 4 [id number] #### [facility] [address] [place] [address] Dr. Devi Ji Methodology: Comment [facility] Comment on above: Result Comment: This liquid based ThinPrep(R) pap test was screened with the use of an image guided system. Performed at: WB Performed By: #### 4 [id number] #### [facility] [address] [place] [address] Dr. Devi Ji Note: Comment Normal [facility] Comment on above: Result Comment: The Pap smear is a screening test designed to aid in the detection of premalignant and malignant conditions of the uterine cervix. It is not a diagnostic procedure and should not be used as the sole means of detecting cervical cancer. Both false-positive and false-negative reports do occur. . Performed at: WB Performed By: #### 4 [id number] #### [facility] [address] [place] [address] Dr. Devi Ji Performed by: Comment Normal [facility] Comment on above: Result Comment: Tamie Greene, Plastic Parts Designer (ASCP) Performed at: BA Performed By: #### 4 [id number] #### [facility] [address] [address] [address] Devi Ji Specimen adequacy: Comment Normal [facility] Comment on above: Result Comment: Sati sfactory for evaluation. No endocervical component is identified. Performed at: BA Performed By: #### 4 [id number] #### [facility] [address] [address] [address] Devi Ji Patient Letter FTMCon 2021 Patient Letter FT December 24, 2021 SOCORRO GARCIA [address] [place] [phone] SOCORRO GARCIA 1980 Dear Socorro, This is a SECOND ATTEMPT to remind you that you are due for an appointment with [facility]. Please contact our office at [phone] to schedule an appointment at your earliest convenience. Thank you, [facility] Reminderson 12-24-2021 Reminders - From: Haley Mortensen To: [facility] - Reminders/Recalls; Sent: 11/19/2021 12:44:29 EDT Show up: 11/19/2021 12:45:00 EDT Subject: Ambulatory Reminder Reminder/Recall 5 [facility] 10[facility]22 first recall letter second recall letter Normal [facility] Patient Letter FTon 2021 Patient Letter FT November 20, 2021 SOCORRO GARCIA [address] [place] [id number] SOCORRO GARCIA 1980 Dear [place], This is a reminder that you are due for an appointment with [facility]. Please contact our office at [phone] to schedule an appointment at your earliest convenience. Thank you, [facility] Normal [facility] C-Reactive Proteinon 022 CRP IV 0.6 mg/dl Normal <5.0 [facility] Comment on above: Performed By: #### C BCAD, CMP, LIPD, FERR, TSH reflex FT4, CRP #### [facility] [address] [place], [place] [id number] Complete Blood Count with Au to Diffon 05-29-2021 Basophils (Bld) [#/Vol] 0.03 10*3/uL Normal 0.00-0.20 [facility] Comment on above: Performed By: #### C BCAD, CMP, LIPD, FERR, TSH reflex FT4, CRP #### [facility] [address], [place] [id number] Basophils/100 WBC (Bld) 0.4 % Normal [facility] Comment on above: Performed By: #### C BCAD, CMP, LIPD, FERR, TSH reflex FT4, CRP #### [facility] [address], [place] [id number] Eosinophils (Bld) [#/Vol] 0.04 10*3/uL Normal 0.02-0.50 [facility] Comment on above: Performed By: #### C BCAD, CMP, LIPD, FERR, TSH reflex FT4, CRP #### [facility] [address], [place] [id number] Eosinophils/100 WBC (Bld) 0.5 % Normal [facility] Special[facility] Comment on above: Performed By: #### C BCAD, CMP, LIPD, FERR, TSH reflex FT4, CRP #### [facility] [address], [place] [id number] Erythrocyte distribution width (RBC) [Ratio] 12.9 % Normal 11.0-15.0 [facility] Comment on above: Performed By: #### C BCAD, CMP, LIPD, FERR, TSH reflex FT4, CRP #### [facility] [address], [place] [id number] Hematocrit (Bld) [Volume fraction] 46.9 % Normal 35.0-47.0 [facility] Special[facility] Comment on above: Performed By: #### C BCAD, CMP, LIPD, FERR, TSH reflex FT4, CRP #### [facility] [address], [place] [id number] Hemoglobin (Bld) [Mass/Vol] 15.5 g/dL Normal 11.6-15.5 [facility] Special[facility] Comment on above: Performed By: #### C BCAD, CMP, LIPD, FERR, TSH reflex FT4, CRP #### [facility] [address], [place] [id number] Lymphocytes (Bld) [#/Vol] 1.8 10*3/uL Normal 0.9-3.9 [facility] Comment on above: Performed By: #### C BCAD, CMP, LIPD, FERR, TSH reflex FT4, CRP #### [facility] [address], [place] [id number] Lymphocytes/100 WBC (Bld) 22.8 % Normal [facility] Comment on above: Performed By: #### C BCAD, CMP, LIPD, FERR, TSH reflex FT4, CRP #### [facility] [address], [place] [id number] MCH (RBC) [Entitic mass] 30.6 pg Normal 27.0-33.0 [facility] Comment on above: Performed By: #### C BCAD, CMP, LIPD, FERR, TSH reflex FT4, CRP #### [facility] [address], [place] [id number] MCHC (RBC) [Mass/Vol] 33.0 g/dL Normal 32.0-36.0 [facility] Special[facility] Comment on above: Performed By: #### C BCAD, CMP, LIPD, FERR, TSH reflex FT4, CRP #### [facility] [address], [place] [id number] MCV (RBC) [Entitic vol] 93 fL Normal 80-100 N [facility] Specialist Comment on above: Performed By: #### C BCAD, CMP, LIPD, FERR, TSH reflex FT4, CRP #### [facility] [address], [place] [id number] Monocytes (Bld) [#/Vol] 0.5 10*3/uL Normal 0.2-0.9 [facility] Comment on above: Performed By: #### C BCAD, CMP, LIPD, FERR, TSH reflex FT4, CRP #### [facility] [address], [place] [id number] Monocytes/100 WBC (Bld) 6.7 % Normal [facility] Comment on above: Performed By: #### C BCAD, CMP, LIPD, FERR, TSH reflex FT4, CRP #### [facility] [address], [place] [id number] Neutrophils (Bld) [#/Vol] 5.6 10*3/uL Normal 1.5-7.8 [facility] Special[facility] Comment on above: Performed By: #### C BCAD, CMP, LIPD, FERR, TSH reflex FT4, CRP #### [facility] [address], [place] [id number] Neutrophils/100 WBC (Bld) 69.4 % Normal [facility] Comment on above: Performed By: #### C BCAD, CMP, LIPD, FERR, TSH reflex FT4, CRP #### [facility] [address], [place] [id number] Platelet mean volume (Bld) [Entitic vol] 10.50 fL Normal 7.50-12.50 [facility] Comment on above: Performed By: #### C BCAD, CMP, LIPD, FERR, TSH reflex FT4, CRP #### [facility] [address], [place] [id number] Platelets (Bld) [#/Vol] 294 10*3/uL Normal 140-400 [facility] Comment on above: Performed By: #### C BCAD, CMP, LIPD, FERR, TSH reflex FT4, CRP #### [facility] [address], [place] [id number] RBC (Bld) [#/Vol] 5.07 10*6/uL Normal 3.90-5.20 [facility] Specialist Comment on above: Performed By: #### C BCAD, CMP, LIPD, FERR, TSH reflex FT4, CRP #### [facility] [address], [place] [id number] RDW-SD 43.8 fL Normal 37.0-50.0 [facility] [employer] Received Comment on above: Performed By: #### C BCAD, CMP, LIPD, FERR, TSH reflex FT4, CRP #### [facility] [address], [place] [id number] WBC (Bld) [#/Vol] 8.1 10*3/uL Normal 3.8-11.0 Deejay garcia [place] [employer] Comment on above: Performed By: #### C BCAD, CMP, LIPD, FERR, TSH reflex FT4, CRP #### [facility] [address], [place] [id number] [facility] 05-29-2021 Albumin [Mass/Vol] 4.7 g/dL Normal 3.6-5.1 Deejay garcia [place] [employer] Comment on above: Performed By: #### C BCAD, CMP, LIPD, FERR, TSH reflex FT4, CRP #### [facility] [address], [place] [id number] Albumin/Globulin [Mass ratio] 1.9 {ratio} Normal 1.0-2.5 [facility] [employer] Comment on above: Performed By: #### C BCAD, CMP, LIPD, FERR, TSH reflex FT4, CRP #### [facility] [address], [place] [id number] ALP [Catalytic activity/Vol] 92 U/L Normal 35-119 [facility] [employer] Comment on above: Performed By: #### C BCAD, CMP, LIPD, FERR, TSH reflex FT4, CRP #### [facility] [address], [place] [id number] ALT [Catalytic activity/Vol] 13 U/L Normal 6-33 [facility] [employer] Comment on above: Result Comment: 04/02 Female reference range changed. Performed By: #### C BCAD, CMP, LIPD, FERR, TSH reflex FT4, CRP #### [facility] [address], [place] [id number] Anion gap [Moles/Vol] 17 mmol/L Normal 12-20 [facility] [employer]ceived Comment on above: Result Comment: Effe ctive 05/08/2019 reference range changed. Performed By: #### C BCAD, CMP, LIPD, FERR, TSH reflex FT4, CRP #### [facility] [address], [place] [id number] AST [Catalytic activity/Vol] 15 U/L Normal 9-34 [facility] Comment on above: Performed By: #### C BCAD, CMP, LIPD, FERR, TSH reflex FT4, CRP #### [facility] [address], [place] [id number] BUN/CREA 16 Ratio Normal 6-22 [facility] Comment on above: Performed By: #### C BCAD, CMP, LIPD, FERR, TSH reflex FT4, CRP #### [facility] [address], [place] [id number] Calcium [Mass/Vol] 9.9 mg/dL Normal 8.6-10.2 [facility] Comment on above: Performed By: #### C BCAD, CMP, LIPD, FERR, TSH reflex FT4, CRP #### [facility] [address], [place] [id number] Chloride [Moles/Vol] 103 mmol/L Normal 98-107 [facility] Comment on above: Performed By: #### C BCAD, CMP, LIPD, FERR, TSH reflex FT4, CRP #### [facility] [address], [place] [id number] CO2 [Moles/Vol] 23 mmol/L Normal 20-31 [facility] Comment on above: Performed By: #### C BCAD, CMP, LIPD, FERR, TSH reflex FT4, CRP #### [facility] [address], [place] [id number] Creatinine [Mass/Vol] 0.6 mg/dL Normal 0.6-1.4 [facility] Comment on above: Performed By: #### C BCAD, CMP, LIPD, FERR, TSH reflex FT4, CRP #### [facility] [address], [place] [id number] eGFRAA 125 mL/min/1.73m2 Normal >60 [facility] Comment on above: Performed By: #### C BCAD, CMP, LIPD, FERR, TSH reflex FT4, CRP #### [facility] [address], [place] [id number] eGFRNAA 103 mL/min/1.73m2 Normal >60 [facility] derek [place] [employer] Comment on above: Performed By: #### C BCAD, CMP, LIPD, FERR, TSH reflex FT4, CRP #### [facility] [address] [place], [place] [id number] Globulin (S) [Mass/Vol] 2.5 g/dL Normal 1.9-3.7 [facility] Specialist Comment on above: Performed By: #### C BCAD, CMP, LIPD, FERR, TSH reflex FT4, CRP #### [facility] [address] [place], [place] [id number] Glucose [Mass/Vol] 81 mg/dL Normal 65-99 Deejay garcia [place] [employer] Comment on above: Result Comment: For FASTING Glucose --- ADA reference ranges: Normal 65-99 mg/dl Prediabetes 100-125 Diabetes >/= 126 Performed By: #### C BCAD, CMP, LIPD, FERR, TSH reflex FT4, CRP #### [facility] [address], [place] [id number] Potassium [Moles/Vol] 4.9 mmol/L Normal 3.5-5.5 [facility] Specialist Comment on above: Performed By: #### C BCAD, CMP, LIPD, FERR, TSH reflex FT4, CRP #### [facility] [address], [place] [id number] Protein [Mass/Vol] 7.2 g/dL Normal 6.1-8.1 Deejay garcia [place] [employer] Comment on above: Performed By: #### C BCAD, CMP, LIPD, FERR, TSH reflex FT4, CRP #### [facility] [address], [place] [id number] Sodium [Moles/Vol] 138 mmol/L Normal 135-146 Deejay garcia [place] [employer] Comment on above: Performed By: #### C BCAD, CMP, LIPD, FERR, TSH reflex FT4, CRP #### [facility] [address] [place], [place] [id number] TBIL <0.3 Normal [facility] Comment on above: Performed By: #### C BCAD, CMP, LIPD, FERR, TSH reflex FT4, CRP #### [facility] [address], [place] [id number] Urea nitrogen [Mass/Vol] 10 mg/dL Normal 7-25 [facility] Specialist Comment on above: Performed By: #### C BCAD, CMP, LIPD, FERR, TSH reflex FT4, CRP #### [facility] [address], [place] [id number] Ferritinon 05-29-2021 FERR 215.9 ng/mL High 15.0-150.0 [facility] Specialist Comment on above: Performed By: #### C BCAD, CMP, LIPD, FERR, TSH reflex FT4, CRP #### [facility] [address], [place] [id number] Lipid Panelon 05-29-2021 Cholesterol [Mass/Vol] 161 mg/dL Normal 125-200 [facility] above: Result Comment: Low risk < 200mg/dL Borderline risk 201-239 mg/dl High risk > or equal to 240 Performed By: #### C BCAD, CMP, LIPD, FERR, TSH reflex FT4, CRP #### [facility] [address], [place] [id number] Cholesterol in HDL [Mass/Vol] 31 mg/dL Low >40 [facility] Specialist Comment on above: Result Comment: High Cardiovascular Risk HDL <40 mg/dL Low Cardiovascular Risk HDL > or equal to 60 mg/dl Performed By: #### C BCAD, CMP, LIPD, FERR, TSH reflex FT4, CRP #### [facility] [address], [place] [id number] Cholesterol in LDL [Mass/Vol] 102 mg/dL Normal [facility] Comment on above: Result Comment: LDL ATP III CLASSIFICATION LDL less than 100 mg/dl Optimal LDL 100-129 mg/dl Near or above optimal LDL 130-159 Borderline high LDL 160-189 High LDL greater than 189 mg/dl Very High Performed By: #### C BCAD, CMP, LIPD, FERR, TSH reflex FT4, CRP #### [facility] [address], [place] [id number] Cholesterol in VLDL [Mass/Vol] 28 mg/dL Normal [facility] Comment on above: Performed By: #### C BCAD, CMP, LIPD, FERR, TSH reflex FT4, CRP #### [facility] [address], [place] [id number] Cholesterol.total/Choles terol in HDL [Mass ratio] 5 {ratio} Normal [facility] Comment on above: Performed By: #### C BCAD, CMP, LIPD, FERR, TSH reflex FT4, CRP #### [facility] [address], [place] [id number] Triglyceride [Mass/Vol] 141 mg/dL Normal 30-150 [facility] Comment on above: Result Comment: TRIG ATPIII CLASSIFICATIONS TRIG less than 150 mg/dl Normal TRIG 150-199 mg/dl Borderline High TRIG 200-500 mg/dl High TRIG greather than 500 mg/dl Very High Performed By: #### C BCAD, CMP, LIPD, FERR, TSH reflex FT4, CRP #### [facility] [address], [place] [id number] TSH w/ Reflex to Free T4on 0 05-29-2021 TSH 1.480 uIU/mL Normal 0.400-4.500 [facility] [employer]ceived Comment on above: Performed By: #### C BCAD, CMP, LIPD, FERR, TSH reflex FT4, CRP #### [facility] [address] [place], [place] [id number] Vital Signs Date Time Vital Sign Value Performing Clinician Facility 11-09-2024 08:33-0400 Body mass index (BMI) [Ratio] 34.46 kg/m2 [employer] DO Work Phone: [facility] 11-09-2024 08:33-0400 Body weight 85.46 kg [employer] DO Work Phone: [facility] 11-09-2024 08:33-0400 Diastolic blood pressure 78 mm[Hg] [employer] DO Work Phone: [facility] 11-09-2024 08:33-0400 Systolic blood pressure 118 mm[Hg] Susan Hendrix DO Work Phone: [facility] 06-28-2024 09:37-0500 Body temperature 97.6 [degF] Frida Garsia MD Work Phone: [facility] [facility] 06-28-2024 09:37-0500 Diastolic blood pressure 82 mm[Hg] Frida Garsia MD Work Phone: [facility] 06-28-2024 09:37-0500 Heart rate 82 /min Frida Garsia MD Work Phone: [facility] 06-28-2024 09:37-0500 Respiratory rate 16 /min Frida Garsia MD Work Phone: [facility] 06-28-2024 09:37-0500 SaO2% (BldA) [Mass fraction] 98 % Frida Garsia MD Work Phone: [facility] 06-28-2024 09:37-0500 Systolic blood pressure 124 mm[Hg] Frida Garsia MD Work Phone: [facility] 04-04-2024 15:14-0500 Body height 157.5 cm Frida Garsia MD Work Phone: [facility] 04-04-2024 15:14-0500 Body mass index (BMI) [Ratio] 33.84 kg/m2 Frida Garsia MD Work Phone: [facility] 04-04-2024 15:14-0500 Body temperature 97.3 [degF] Frida Garsia MD Work Phone: [facility] 04-04-2024 15:14-0500 Body weight 83.92 kg Frida Garsia MD Work Phone: [facility] 04-04-2024 15:14-0500 Diastolic blood pressure 68 mm[Hg] Frida Garsia MD Work Phone: [facility] 04-04-2024 15:14-0500 Heart rate 71 /min Frida Garsia MD Work Phone: [facility] 04-04-2024 15:14-0500 Respiratory rate 17 /min Frida Garsia MD Work Phone: [facility] 04-04-2024 15:14-0500 SaO2% (BldA) [Mass fraction] 97 % Frida Garsia MD Work Phone: [facility] 04-04-2024 15:14-0500 Systolic blood pressure 128 mm[Hg] Frida Garsia MD Work Phone: [facility] 01-04-2024 08:39-0400 Body height 157.5 cm Frida Garsia MD Work Phone: [facility] 01-04-2024 08:39-0400 Body mass index (BMI) [Ratio] 34.02 kg/m2 Frida Garisa MD Work Phone: [facility] 01-04-2024 08:39-0400 Body temperature 97.9 [degF] Frida Garsia MD Work Phone: [facility] 01-04-2024 08:39-0400 Body weight 84.37 kg Frida Garsia MD Work Phone: [facility] 01-04-2024 08:39-0400 Diastolic blood pressure 78 mm[Hg] Frida Garsia MD Work Phone: [facility] 01-04-2024 08:39-0400 Heart rate 75 /min Frida Garsia MD Work Phone: [facility] 01-04-2024 08:39-0400 SaO2% (BldA) [Mass fraction] 99 % Frida Garsia MD Work Phone: [facility] 01-04-2024 08:39-0400 Systolic blood pressure 112 mm[Hg] Frida Garsia MD Work Phone: [facility] 08-02-2023 10:13-0400 Diastolic blood pressure 88 mm[Hg] Cathi Diane MD Work Phone: [facility] 08-02-2023 10:13-0400 Heart rate 78 /min Cathi Diane MD Work Phone: [facility] 08-02-2023 10:13-0400 Systolic blood pressure 134 mm[Hg] Cathi Diane MD Work Phone: [facility] 08-02-2023 10:08-0400 Body height 161.9 cm Cathi Diane MD Work Phone: [facility] 08-02-2023 10:08-0400 Body temperature 98.1 [degF] Cathi Diane MD Work Phone: [facility] 08-02-2023 10:08-0400 Body weight 80.24 kg Cathi Diane MD Work Phone: [facility] 08-02-2023 10:08-0400 Respiratory rate 14 /min Cathi Diane MD Work Phone: [facility] 08-02-2023 10:08-0400 SaO2% (BldA) [Mass fraction] 98 % Cathi Diane MD Work Phone: [facility] 06-15-2023 09:20-0500 Body height 157.5 cm Frida Garsia MD Work Phone: [facility] 06-15-2023 09:20-0500 Body mass index (BMI) [Ratio] 32.37 kg/m2 Frida Garsia MD Work Phone: [facility] 06-15-2023 09:20-0500 Body temperature 97.81 [degF] Frida Garsia MD Work Phone: [facility] 06-15-2023 09:20-0500 Body weight 80.29 kg Frida Garsia MD Work Phone: [facility] 06-15-2023 09:20-0500 Diastolic blood pressure 90 mm[Hg] Frida Garsia MD Work Phone: [facility] 06-15-2023 09:20-0500 Heart rate 86 /min Frida Garsia MD Work Phone: [facility] 06-15-2023 09:20-0500 Respiratory rate 17 /min Frida Garsia MD Work Phone: [facility] 06-15-2023 09:20-0500 SaO2% (BldA) [Mass fraction] 97 % Frida Garsia MD Work Phone: [facility] 06-15-2023 09:20-0500 Systolic blood pressure 134 mm[Hg] Frida Gasria MD Work Phone: [facility] 04-09-2023 09:30-0500 Diastolic blood pressure 74 mm[Hg] MD Frida Garsia Work Phone: [facility] 04-09-2023 09:30-0500 Heart rate 72 /min MD Frida Garsia Work Phone: [facility] 04-09-2023 09:30-0500 Respiratory rate 16 /min MD Frida Garsia Work Phone: [facility] 04-09-2023 09:30-0500 SaO2% (BldA) [Mass fraction] 98 % MD Frida Garsia Work Phone: [facility] 04-09-2023 09:30-0500 Systolic blood pressure 118 mm[Hg] MD Frida Garsia Work Phone: [facility] 04-09-2023 06:55-0500 Body height 154.94 cm MD Frida Garsia Work Phone: [facility] 04-09-2023 06:55-0500 Body weight 81.64 kg MD Frida Garsia Work Phone: [facility] Encounters Encounter Date Encounter Type Care Provider Facility Start: 11-09-2024 End: 11-09-2024 Bamboo flowsheet Susan Simeon DO Work Phone: [facility] Start: 11-09-2024 End: 11-09-2024 Bamboo flowsheet Susan Simeon DO Work Phone: [facility] Start: 11-09-2024 End: 11-09-2024 Patient encounter procedure Susan Rodriguezo DO Work Phone: [facility] Work Phone: Start: 11-09-2024 End: 11-09-2024 Periodic preventive med est patient 40-64yrs Susan Rodriguezo DO Work Phone: [facility] Comment on above: Well woman exam with routine gynecological exam; Breast cancer screening by mammogram Start: 08-02-2024 End: 08-02-2024 Refill Symone L Case INSTRUMENT CHECKER Work Phone: [facility] Comment on above: Anxiety Start: 07-28-2024 End: 07-28-2024 Refill Symone L Case INSTRUMENT CHECKER Work Phone: [facility] Comment on above: Other chronic pain Start: 06-28-2024 End: 06-28-2024 Patient encounter procedure Frida Garsia MD Work Phone: [facility] Work Phone: Start: 06-28-2024 End: 06-28-2024 ambulatory Frida Garsia MD Work Phone: [facility] Work Phone: Start: 04-30-2024 End: 05-01-2024 Refill Frida Garsia MD Work Phone: [facility] Comment on above: Anxiety; Other chronic pain Start: 04-04-2024 End: 04-04-2024 Office outpatient visit 25 minutes Frida Garsia MD Work Phone: [facility] Comment on above: Mild persistent asth ma without complication (CMS/HCC) (Primary Dx); Hypertension, unspecified type (CMS/HCC); Occlusion of left carotid artery; Anxiety; Shortness of breath; Tobacco abuse Start: 04-04-2024 End: 04-04-2024 ambulatory FRIDA GARSIA Not Available Start: 04-04-2024 End: 04-04-2024 Bamboo flowsheet Frida Garsia MD Work Phone: [facility] Start: 04-04-2024 End: 04-04-2024 Bamboo flowsruth Garsia MD Work Phone: [facility] Start: 02-28-2024 End: 02-28-2024 Refill Frida Garsia MD Work Phone: [facility] Comment on above: Other chronic pain Start: 02-24-2024 Non-patient / Non-visit MD Oscar Garsia Work Phone: [facility] Work Phone: Start: 02-24-2024 End: 02-24-2024 Patient encounter procedure MD Frida Garsia Work Phone: [facility] Work Phone: Start: 02-24-2024 End: 02-24-2024 ambulatory MD Frida Garsia Work Phone: [facility] Work Phone: Start: 02-09-2024 End: 02-09-2024 Refill Frida Garsia MD Work Phone: [facility] Comment on above: Hypertension, unspec ified type (CMS/HCC) Start: 01-04-2024 End: 01-04-2024 Bamboo flowsheet Frida Garsia MD Work Phone: [facility] Start: 01-04-2024 End: 01-04-2024 Bamboo flowsruth Garsia MD Work Phone: [facility] Start: 01-04-2024 End: 01-04-2024 Office outpatient visit 25 minutes Frida Garsia MD Work Phone: [facility] Comment on above: Hypertension, unspec ified type (CMS/HCC) (Primary Dx); Occlusion of left carotid artery; Anxiety; Crohn's disease with complication, unspecified gastrointestinal tract location (CMS/HCC); Shortness of breath; Tobacco abuse; Other chronic pain; Vapes non-nicotine containing substance Start: 01-04-2024 End: 01-04-2024 ambulatory FRIDA GARSIA Not Available Start: 01-01-2024 End: 01-01-2024 Patient encounter procedure MD Frida Garsia Work Phone: [facility] [place] Work Phone: Start: 01-01-2024 End: 01-01-2024 ambulatory MD Frida Garsia Work Phone: [facility] Work Phone: Start: 01-01-2024 Encounter for genera l adult medical examination without abnormal findings Frida Garsia [facility] Start: 12-09-2023 End: 12-09-2023 ambulatory ABI CARRERA Not Available Start: 11-08-2023 End: 11-08-2023 ambulatory SUSAN SIMEON Not Available Start: 10-14-2023 End: 10-14-2023 ambulatory FRIDA GARSIA Not Available Start: 08-02-2023 End: 08-02-2023 ambulatory CATHI DIANE Facility:[facility] Start: 08-02-2023 End: 08-02-2023 Patient encounter procedure [...] Dx) Start: 07-13-2023 Telephone encounter No Pcp USER SUPPORT SPECIALIST NOC Comment on above: Appointment Start: 06-24-2023 End: 06-24-2023 ambulatory MD Frida Garsia Work Phone: [facility] Work Phone: Start: 06-24-2023 End: 06-24-2023 Patient encounter procedure MD Frida Garsia Work Phone: [facility] Work Phone: Start: 06-18-2023 End: 06-18-2023 ambulatory FRIDA GARSIA Not Available Start: 06-15-2023 Bamboo flowsheet Frida chavez MD Work Phone: [facility] Start: 06-15-2023 Bamboo flowsheet Frida chavez MD Work Phone: [facility] Start: 06-15-2023 End: 06-15-2023 Office outpatient visit [...] encounter status Frida Garsia MD Work Phone: [facility] Start: 06-15-2023 End: 06-15-2023 ambulatory FRIDA GARSIA Not Available Start: 06-14-2023 Chart abstracting Frida byrd MD Work Phone: [facility] Start: 04-09-2023 End: 04-09-2023 Admission to same day surgery center MD Frida Garsia Work Phone: [facility] Work Phone: Start: 04-09-2023 End: 04-09-2023 ambulatory MD Frida Garsia Work Phone: [facility] Work Phone: Start: 10-01-2022 Patient encounter status Frida Garsia MD Work Phone: [facility] Start: 03-06-2022 End: 03-06-[address] SUSAN HENDRIX Facility:[facility] Procedures Date Procedure Procedure Detail Performing Clinician Start: 06-28-2024 Doppler ultrasonogra phy of bilateral carotid arteries Frida Garsia MD Work Phone: Start: 07-05-2023 Mammography Frida byrd MD Work Phone: Start: 04-09-2023 Colonoscopy MD Frida foreman Work Phone: Start: 03-05-2022 Mammography Frida byrd MD Work Phone: Plan of Treatment Date Care Activity Detail Author Start: 2041 Hepatitis B Vaccine (1 of 3 - Risk 3-dose series) Hepatitis B Vaccine (1 of 3 - Risk 3-dose series) [facility] Start: 01-01-2025 Influenza vaccination N [facility] Start: 11-09-2024 End: 01-10-2026 MG Breast - bilateral Screening Bilateral screening mammogram Imaging Routine Breast cancer screening by mammogram Expected: 11/09/2024 (Approximate), Expires: 01/10/2026 [facility] Work Phone: Comment on above: Expected: 11/09/2024 (Approximate), Expires: 01/10/2026 Start: 11-09-2024 End: 11-09-2024 Patient encounter procedure [facility] Comment on above: Arrived Start: 10-30-2024 Influenza vaccination Influenza Vacc ine (#1) [facility] Comment on above: Postponed from 01/01 (Patient Refused) Start: 07-04-2024 Screening for malign ant neoplasm of breast Mammogram [facility] Start: 06-28-2024 Patient referral [facility] Work Phone: Start: 06-05-2024 End: 04-04-2025 Comprehensive metabolic 2000 panel - Serum or Plasma Comprehensive metabolic panel Lab Routine Hypertension, unspecified type (CMS/HCC) Expected: 06/05/2024, Expires: 04/04/2025 [facility] Comment on above: Expected: 06/05/2024 , Expires: 04/04/2025 Start: 06-05-2024 End: 04-04-2025 HEMOGRAM CBC WITHOUT DIFF ([facility]) HEMOGRAM CBC WITHOUT DIFF ([facility]) Lab Routine Hypertension, unspecified type (CMS/HCC) Expected: 06/05/2024 (Approximate), Expires: 04/04/2025 [facility] Comment on above: Expected: 06/05/2024 (Approximate), Expires: 04/04/2025 Start: 06-05-2024 End: 04-04-2025 Lipid 1996 panel - Serum or Plasma Lipid panel Lab Routine Occlusion of left carotid artery Expected: 06/05/2024, Expires: 04/04/2025 [facility] Work Phone: Comment on above: Expected: 06/05/2024 , Expires: 04/04/2025 Start: 06-05-2024 End: 04-04-2025 Thyrotropin [Units/volume] in Serum or Plasma TSH Lab Routine Hypertension, unspecified type (CMS/HCC) Expected: 06/05/2024, Expires: 04/04/2025 [facility] Comment on above: Expected: 06/05/2024 , Expires: 04/04/2025 Start: 04-04-2024 End: 04-04-2024 Patient encounter procedure [facility] Comment on above: Arrived Start: 01-04-2024 End: 01-03-2025 Cardiac stress study Procedure STRESS TEST TREADMILL Imaging Routine Hypertension, unspecified type (CMS/HCC) Occlusion of left carotid artery Shortness of breath Expected: 01/04/2024 (Approximate), Expires: 01/03/2025 [facility] Work Phone: Comment on above: Expected: 01/04/2024 (Approximate), Expires: 01/03/2025 Start: 01-04-2024 End: 01-04-2024 Patient encounter procedure 01/04/2024 8:40 AM EDT Office Visit [facility] [address] [place] [address] Frida Garsia MD [address], [place] [id number] [facility] Comment on above: Arrived Start: 01-02-2024 Influenza vaccination [facility] Start: 10-31-2023 Influenza vaccination Influenza Vacc ine (#1) [facility] Comment on above: Postponed from 01/01 (Patient Refused) Start: 10-14-2023 End: 10-14-2023 Patient encounter procedure 10/14/2023 9:20 AM EDT [facility] [address] [place] [id number] Frida Garsia MD [address], [place] [id number] [facility] Start: 10-08-2023 End: 06-15-2024 CBC W Auto Differential panel - Blood CBC and differential Lab Routine Encounter for wellness examination in adult Expected: 10/08/2023, Expires: 06/15/2024 [facility] Comment on above: Expected: 10/08/2023 , Expires: 06/15/2024 Start: 10-08-2023 End: 06-15-2024 Comprehensive metabolic 2000 panel - Serum or Plasma Comprehensive metabolic panel Lab Routine Encounter for wellness examination in adult Expected: 10/08/2023, Expires: 06/15/2024 [facility] Comment on above: Expected: 10/08/2023 , Expires: 06/15/2024 Start: 10-08-2023 End: 06-15-2024 LIPID PANEL WITH REFLEX TO DIRECT LDL LIPID PANEL WITH REFLEX TO DIRECT LDL Lab Routine Encounter for wellness examination in adult Expected: 10/08/2023, Expires: 06/15/2024 [facility] Comment on above: Expected: 10/08/2023 , Expires: 06/15/2024 Start: 10-08-2023 End: 06-15-2024 TSH W/REFLEX TO FT4 TSH W/REFLEX TO FT4 Lab Routine Encounter for wellness examination in adult Expected: 10/08/2023, Expires: 06/15/2024 [facility] Comment on above: Expected: 10/08/2023 , Expires: 06/15/2024 Start: 06-15-2023 End: 06-15-2024 ECG 12 lead ECG 12 lead ECG Routine Hypertension, unspecified type (CMS/HCC) Shortness of breath Expected: 06/15/2023 (Approximate), Expires: 06/15/2024 [facility] Work Phone: Comment on above: Expected: 06/15/2023 (Approximate), Expires: 06/15/2024 Start: 06-15-2023 End: 06-15-2024 MRA Head vessels WO contrast MR angiogram head wo IV contrast Imaging Routine Family history of brain aneurysm Expected: 06/15/2023, Expires: 06/15/2024 [facility] Comment on above: Expected: 06/15/2023 , Expires: 06/15/2024 Start: 06-15-2023 End: 06-15-2025 US Heart Transthoracic Transthoracic Echo (TTE) Complete Echocardiography Routine Hypertension, unspecified type (CMS/HCC) Shortness of breath Expected: 06/15/2023 (Approximate), Expires: 06/15/2025 [facility] Comment on above: Expected: 06/15/2023 (Approximate), Expires: 06/15/2025 Start: 06-15-2023 End: 06-15-2023 Patient encounter procedure [facility] Comment on above: Arrived Start: 05-03-2023 Depression Assessment Depression Ass essment [facility] Start: 04-09-2023 [facility] Start: 03-05-2023 Screening for malign ant neoplasm of breast [facility] Start: 01-01-2023 Covid-19 Vaccine ( season) Covid-19 Vaccine () [facility] Start: 01-01-2023 Covid-19 Vaccine () Covid-19 Vaccine () [facility] Start: 01-01-2023 Influenza vaccination Influenza Vacc ine (#1) [facility] Start: 08-15-2011 Screening for malign ant neoplasm of cervix [facility] Start: 08-15-2011 Zoledronic acid therapy Alpha- 1 Antitrypsin Deficiency Screening [facility] Start: 2002 Screening for malign ant neoplasm of cervix [facility] Start: 2000 Hepatitis A Vaccine (1 of 2 - Risk 2-dose series) Hepatitis A Vaccine (1 of 2 - Risk 2-dose series) [facility] Start: 2000 Hepatitis B Vaccine (1 of 3 - 19+ 3-dose series) Hepatitis B Vaccine (1 of 3 - 19+ 3-dose series) [facility] Start: 2000 Urine microalbumin profile DTaP,Tdap,Td Vaccine (1 - Tdap) [facility] Start: 08-15-1999 Annual PCP Team Stucco Laborer angelica Disease Visit Annual PCP Team Chronic Disease Visit [facility] Start: 08-15-1999 BP Controlled (<130/80) BP Controlle d (<130/80) [facility] Start: 08-15-1999 Hepatitis C screening Hepatitis C Sc reening [facility] Start: 08-15-1999 HIV screening HIV Screening [facility] Start: 08-15-1999 MMR Vaccine (1 of 2 - Risk 2-dose series) MMR Vaccine (1 of 2 - Risk 2-dose series) [facility] Start: 08-15-1999 Spirometry Spirometry [facility] Start: 08-15-1991 Meningococcal B Vaccine: Consider Based On Risk (1 of 4 - Increased Risk) Meningococcal B Vaccine: Consider Based On Risk (1 of 4 - Increased Risk) [facility] Start: 08-15-1987 Pneumococcal vaccination Pneumococcal Vaccine (1 of 2 - PCV) [facility] Patient Education Hemorrhoids (DC) [facility] Work Phone: Patient referral [facility] Work Phone: Pulmonary function report Pulmonary Function Test Imaging Routine Shortness of breath Tobacco abuse Ordered: 01/04/2024 [facility] Comment on above: Ordered: 01/04/2024 THIN PREP TIS PAP AN D HR HPV DNA THIN PREP TIS PAP AND HR HPV DNA Pathology and Cytology Routine Well woman exam with routine gynecological exam Ordered: 11/09/2024 [facility] Comment on above: Ordered: 11/09/2024 End: 07-13-2024 US Carotid arteries - bilateral US CAROTID ARTERIES [facility] Routine Occlusion and stenosis of left carotid artery 1 Occurrences starting 07/14/2023 until 07/13/2024 [facility] Work Phone: Comment on above: 1 Occurrences starti ng 07/14/2023 until 07/13/2024 US.doppler Carotid arteries - bilateral [facility] Immunizations Immunization Date Immunization Notes Care Provider [facility] 02-16-2013 seasonal influenza, intradermal, preservative free Frida Garsia MD Work Phone: [facility] 02-16-2013 influenza virus vacc ine, unspecified formulation Frida Garsia MD Work Phone: [facility] 05-12-2009 novel influenza-H1N1 -09, preservative-free, injectable Frida Garsia MD Work Phone: [facility] 05-03-2009 novel influenza-H1N1 -09, preservative-free, injectable Frida Garsia MD Work Phone: [facility] 08-09-2003 tetanus toxoid, adsorbed Oscar Garsia MD Work Phone: [facility] Payers Date Payer Category Payer Self-pay [id number] 2022 [facility] Insurance [employer] [id number] 2022 Unknown [id number] 1981 Unknown [id number] 1981 Unknown [id number]. [id number] 1981 Unknown [id number]. 2.1258 1981 Unknown [id number]. 2.1258 1981 Unknown [id number]. 2.1258 1981 Unknown [id number]. 2.1258 1981 Unknown [id number]. [id number] 1981 Unknown [id number]. 2.9 1959 Unknown [id number] Private Health Insurance [employer] [id number] Unknown HCAP/HFA/FAP Active [id number] Unknown HCAP/HFA/FAP Active [id number] Unknown [id number] Unknown [id number] [id number] Unknown [id number] Social History Date Type Detail Facility Start: 04-09-2023 End: 01-04-2024 Tobacco smoking status WVIS Ex-smoker (finding) [facility] Start: 1980 Sex Assigned At Female [facility] Start: 05-03-1995 End: 07-02-2023 History of tobacco use Current smoker [facility] Start: 05-03-1995 End: 07-02-2023 History of tobacco use Cigarette Smoker [facility] Start: 09-30-2022 End: 02-28-2023 Cigarettes smoked current (pack per day) - Reported 1 [facility] Start: 02-28-2023 End: 01-04-2024 Tobacco use and exposure Smokeless tobacco non-user [facility] Start: 02-28-2023 End: 04-04-2024 Alcohol intake Lifetime non-drinker (finding) [facility] Start: 09-30-2022 End: 04-04-2024 Humiliation, Afraid, Rape, and Kick questionnaire [HARK] [facility] Within the last year , have you been afraid of your partner or ex-partner? No [facility] Are you now , , , , never or living with a partner? [facility] How often to you hav e a drink containing alcohol? Monthly or less [facility] How many standard dr inks containing alcohol do you have on a typical day? 1 or 2 [facility] How often do you hav e 6 or more drinks on 1 occasion? Never [facility] How hard is it for y ou to pay for the very basics like food, housing, medical care, and heating Not hard at all [facility] Do you feel stress - tense, restless, nervous, or anxious, or unable to sleep at night because your mind is troubled all the time - these days [OSQ] Very much [facility] (I/We) worried wheth er (my/our) food would run out before (I/we) got money to buy more. Never true [facility] Start: 02-28-2023 Tobacco Comment Smokes 60 mins after waking upThinking about quitting [facility] Start: 12-14-2022 Alcohol Comment caffeine: 1-2 cups per day soda [facility] Start: 1980 Sex Assigned At Not on file [facility] Tobacco smoking stat [facility] Tobacco smoking consumption unknown [facility] Start: 08-02-2023 Alcohol intake Current drinker of alcohol (finding) [facility] Start: 08-02-2023 Alcohol Comment socially [facility] Start: 06-29-2024 Sex Female (finding) [facility] Goals Date Patient Goal Desired Activity /State Clinical Notes 04-09-2023 to 11-09-2024 Domenica Tim, COAT JOINER - 11/09/2024 8:30 AM EDT Note Date & Type Note Facility 11-09-2024 History of Present illness Narrative Reason for Appointment: Patient ID: Socorro Garcia [...] nursing note reviewed. Exam conducted with a ice puller present. Vitals: Estimated body mass index is 34.46 kg/m as calculated from the following: Height as of 24: 5' 2 . Weight as of this [...] by Domenica Tim LPN on behalf of: Susan Hendrix DO documented in this encounter [facility] 06-28-2024 Hospital Discharge instructions Ambulatory OrdersReferral to Orthopedics Time Frame: 06/28/24, Location: None Selected [facility] Work Phone: 06-28-2024 Radiology Diagnostic study note [facility] [address] [place] [address] Ultrasound Report Signed Patient: Socorro Garcia MR#: [id number] : 1980 Acct:[id number] Age/Sex: 43 / F ADM Date: 5 Loc: [facility] Room: Type: [facility] Attending Dr: Mane Abernathy MD Ordering Provider: Mane Abernathy MD Date of Service: 06/28/24 US/US carotid doppler BI: I65.29 - Occlusion and stenosis of unspecified carotid ar... Copies to: Mane Abernathy MD~ CAROTID DUPLEX INDICATION: Surveillance study for known left carotid occlusion. PROCEDURE: Color-flow duplex scanning is used to interrogate the extracranial carotid arterial system, as well as both vertebral arteries. The proximal rightinternal carotid artery shows a highest peak systolic velocity of 120 cm/s with an end-diastolic velocity of 47.6 cm/s . The mid internal carotid artery measures 106 cm/s peak systolic with an end-diastolic velocity of 54.6 cm/s . The distal segment measures 124 cm/s peak systolic with an end diastolic velocity of 68 cm/s . The velocities of the right common carotid artery are 144 cm/s peak systolic and 39.9 cm/s end-diastolic proximally and 203 cm/s peak systolic and 61.5 cm/s end-diastolic distally. The peak systolic velocity ratioof the internal to the common carotid artery is 0.61 . The right external carotid artery measures 121 cm/s peak systolic. The right vertebral artery is patent at 132 cm/s peak systolic and with antegrade flow. The proximal left internal carotid artery shows chronic occlusion. The velocities of the left common carotid artery are 175 cm/s peak systolic and 30 cm/s end-diastolic proximally and 150 cm/s peak systolic and 31.4 cm/s end-diastolic distally. The left external carotid artery measures 122 cm/s peak systolic. The left vertebral artery is patent at 106 cm/s peak systolic with antegrade flow. US/US carotid doppler BI IMPRESSION: NO HEMODYNAMICALLY SIGNIFICANT STENOSIS OF THE RIGHT EXTRACRANIAL INTERNAL CAROTID ARTERY. BOTH VERTEBRAL ARTERIES ARE PATENT WITH ANTEGRADE FLOW. The left internal carotid artery is occluded, chronically. Impression dictated by: Mane Abernathy MD06/28/2024 11:55 AM Dictation Location: [place] [address] Tech: Rea Patrick Transcribed By: ALFONSO 06/28/241154 Dictated By: Mane Abernathy MD 06/28/24 115 Signed By: 06/28/24 115 [facility] Work Phone: 06-28-2024 Evaluation note Diagnosis Onset Date Resolution Left carotid artery occlusion acute June 28, 025 9:06am [facility] Work Phone: 1(515) 916-887712-03-2024 History of Present illness Narrative* Frida Garsia MD - 04/04/2024 3:20 PM EST Socorro Garcia is a 43 y.o. female presents with chief complaint of Hypertension HPI: History of Present Illness Unable to cut Olemesartan in half so she has been taking full tablet. The patient presents for evaluation of multiple medical concerns. She reports a change in her medication regimen, with BuSpar being particularly beneficial. She has taken Ativan once since her last visit, even though it was prescribed twice daily. She has reduced her blood pressure medication dosage by half, resulting in more stable blood pressure readings. She is currently on a 5 mg dose. She underwent a stress test, which yielded good results. She also had a pulmonary function test andwas advised to use a daily inhaler. However, she has not received any further instructions or the inhaler itself. She has been experiencing shortness of breath for an extended period, initially attributing it to anxiety. She now believes it may be due to insufficient air intake, as she often yawns to compensate. This symptom was present daily before starting BuSpar but has since decreased in frequency. She did not notice any significant improvement in her breathing during the pulmonary functiontest. She is concerned about potential side effects from the inhaler and prefers to use it only in e mergency situations. She has a follow-up appointment with her vascular doctor in either August or September 2023. SUBJECTIVE: PAST MEDICAL HISTORY: Past Medical History: Diagnosis Date Carotid artery disease ([facility]) left 100 % block Depression ([facility]) H/O Crohn's disease MEDICATIONS: Current Outpatient Medications Medication Instructions acyclovir (Zovirax) 5 % ointment Topical, 6 times daily, Space applications every 3 hours. aspirin 81 mg, Every 24 hours atorvastatin (LIPITOR) 40 mg, Daily busPIRone (BUSPAR) 5 mg, Oral, 2 times daily dicyclomine (BENTYL) 20 mg, Oral, 3 times daily PRN ibuprofen 800 MG tablet TAKE 1 TABLET BY MOUTH 3 TIMES A DAY NEEDED FOR MILD PAIN LORazepam (ATIVAN) 1 mg, Oral, Every 8 hours PRN olmesartan (BENICAR) 5 mg, Oral, Daily valACYclovir (Valtrex) 1 g tablet TAKE 1 TABLET BY MOUTH EVERY 12 HOURS varenicline (CHANTIX) 1 mg ALLERGIES: No Known Allergies SURGICAL HISTORY: Past Surgical History: Procedure Laterality Date ADENOIDECTOMY 05/16/2009 CERVICAL BIOPSY W/ LOOP ELECTRODE EXCISION HYSTERECTOMY 10/27/2015 LAPAROSCOPY DIAGNOSTIC / BIOPSY / ASPIRATION / LYSIS 03/13/2016 MR ANGIOGRAM HEAD WO IV CONTRAST 06/18/2023 MR ANGIOGRAM HEAD WO IV CONTRAST 06/18/2023 [facility] MR TONSILLECTOMY 05/16/2009 FAMILY HISTORY: Family History Problem Relation Name Age of Onset Cancer Mother Lung Hyperlipidemia Brother Hypertension Brother Irritable bowel syndrome Brother Cancer Maternal Grandmother Colon Colon cancer Maternal Grandmother Melanoma Maternal Grandfather Alzheimer's disease Paternal Grandfather SOCIAL HISTORY: Social History Tobacco Use Smoking status: Former Current packs/day: 0.00 Types: Cigarettes Quit date: 05/03/2001 Years since quittin.9 Smokeless tobacco: Never Tobacco comments: Smokes 60 mins after waking up Thinking about quitting Vaping Use Vaping status: Some Days Substance Use Topics Alcohol use: Never Comment: caffeine: 1-2 cups per day soda Drug use: Never Depression: Not on file REVIEW OF SYMPTOMS: Review of Systems OBJECTIVE: Visit Vitals BP 128/68 Pulse 71 Temp 97.3 F Resp 17 Ht 5' 2 Wt 185 lb SpO2 97% BMI 33.84 kg/m OB Status Hysterectomy Smoking Status Former BSA 1.92 m Physical Exam Constitutional: Appearance: Normal appearance. [...] alert. Psychiatric: Mood and Affect: Mood normal. Results Testing Pulmonary function studies revealed mild obstruction with evidence of bronchodilator response without residual obstruction, suggesting reactive airway or asthma. ASSESSMENT AND PLAN: Assessment & Plan 1. Mild asthma. The pulmonary function test indicates mild obstruction with a bronchodilator response, suggesting apossible diagnosis of reactive airway disease or asthma. The absence of residual obstruction rules out COPD. She reports experiencing shortness of breath every other day, which has improved since starting BuSpar. A prescription for Advair HFA was provided, with instructions to take 1 puff twice daily. She was advised to rinse her mouth after each use to prevent oral thrush. If there is no improvement after a month, the use of the inhaler will be re-evaluated. 2. Anxiety. She reports that BuSpar has significantly improved her anxiety symptoms, and she has only needed Ativan once since the last visit. She is currently taking BuSpar once daily in the morning, which has been effective. She was advised to continue this regimen and use the second dose as needed. A refillfor BuSpar was discussed, and she was informed that she can request a 90-day supply when needed. 3. Hypertension. Her blood pressure is well-controlled at 128/68 mmHg on the current medication regimen. She was advised to continue her current blood pressure medication. 4. Health Maintenance. Blood work was ordered for June 2023. She was encouraged to maintain her exercise routine and to keep her appointment with her vascular doctor in August or September 2023. Follow-up Return in 6 months for follow up. Assessment/Plan Diagnoses and all orders for this visit: Mild persistent asthma without complication (CMS/HCC) - fluticasone-salmeterol (Advair HFA) 230-21 MCG/ACT inhaler; Inhale 2 puffs in the morning and 2 puffs before bedtime. Rinse mouth with water after use to reduce aftertaste and incidence of candidiasis. Do not swallow.. Hypertension, unspecified type (CMS/HCC) - Comprehensive metabolic panel; Future - HEMOGRAM CBC WITHOUT DIFF ([facility]); Future - TSH; Future Occlusion of left carotid artery - Lipid panel; Future Recommend continue to follow with vascular surgery Anxiety Medication as directed. Follow up in three months to assess response to treatment. Verbalizes understanding of the need to be seen in the ER for suicidal/homicidal ideation. Patient strongly encouraged to avoid alcohol and drug substances while on medications. Patient informed that this can cause ad verse reactions and ineffectiveness of medications. [place] reviewed as necessary for use of controlled substances Shortness of breath Tobacco abuse Prior to your visit today the team [...] these goals with the following plan: Barriers tothese goals have been discussed. Unable to cut Olemesartan in half so she has been taking full tablet. documented in this encounterMer[facility] Hospital [id number] Telephone encounter Note* Telephone Encounter - MARKOS SÁNCHEZ - 02/28/2024 7:51 AM EDT ----- Message from Dr. Frida Garsia sent at 02/26/2024 10:38 AM EDT ----- Please notify that stress test is negative and pulmonary test shows mild asthma. I might want to start a daily inhaler to see if it helps the symptoms. Let me know if she is ok with this and I will send one in. Take as directed- symbicort [id number] Miscellaneous Notes* Telephone Encounter - MARKOS SÁNCHEZ - 02/28/2024 7:51 AM EDT ----- Message from Dr. Frida Garsia sent at 02/26/2024 10:38 AM EDT ----- Please notify that stress test is negative and pulmonary test shows mild asthma. I might want to start a daily inhaler to see if it helps the symptoms. Let me know if she is ok with this and I will send one in. Take as directed- symbicort documented in this encounterMercy Hospital [id number] Procedure [facility]09-03-2024 History of Present illness Narrative* Frida Grasia MD - 01/04/2024 8:40 AM EDT Socorro Garcia is a 43 y.o. female presents with chief complaint of No chief complaint on file. HPI: History of Present Illness The patient is a 43-year-old female who presents for blood work follow-up and blood pressure check. She reports experiencing low blood pressure at home, which she monitors regularly. She does not experience dizziness or lightheadedness upon standing. Despite normal blood pressure and heart rate readings, she often feels suffocated. Her recent blood work showed elevated chloride levels. She is curr ently on a lower dose of cholesterol medication (40 mg) and tolerates it well. She has been feeling unwell consistently and often experiences shortness of breath, which she attributes to her anxiety. She avoids strenuous exercise due to fear of elevating her heart rate excessively. She self-medicates with Ativan for her anxiety, which she finds helpful in returning her to a normal state. She has tried several other medications for her anxiety in the past, including Effexor,sertraline, and fluoxetine, but discontinued them due to side effects. She has not tried buspirone.Recently, she has been using Ativan more frequently due to increased feelings of breathlessness. She is considering undergoing a stress test and pulmonary function tests. She has a history of smoking but has been nicotine-free for 101 days. She occasionally uses nicotine-free vape and can go weeks without smoking. She experiences daily anxiety attacks around 4:00 PM, especially when playing volleyball. She has attended counseling for two years but found it only occas ionally helpful. She takes ibuprofen 2 to 3 times a week. She spends a lot of time sitting at her computer. She has noticed an increase in her heart rate to 110 bpm around noon, as indicated by her watch. She does not experience any episodes of fainting. She has had two urinary tract infections in the past, which were treated with antibiotics, but currently reports no urinary symptoms. She has been tested for C. difficile. She does not report any presence of blood in her stool or swelling. SUBJECTIVE: PAST MEDICAL HISTORY: Past Medical History: Diagnosis Date Carotid artery disease (CMS/HCC) left 100 % block Depression (CMS/HCC) H/O Crohn's disease MEDICATIONS: Current Outpatient Medications Medication Instructions acyclovir (Zovirax) 5 % ointment Topical, 6 times daily, Space applications every 3 hours. aspirin 81 mg, Oral, Every 24 hours atorvastatin (LIPITOR) 40 mg, Oral, Daily dicyclomine (BENTYL) 20 mg, Oral, 3 times daily PRN ibuprofen 800 MG tablet TAKE 1 TABLET BY MOUTH EVERY 8 HOURS NEEDED FOR 30 DAYS LORazepam (Ativan) 1 MG tablet 1 tablet as needed Orally every 8 hours for 30 days olmesartan (BENICAR) 5 mg, Oral, Daily valACYclovir (Valtrex) 1 g tablet TAKE 1 TABLET BY MOUTH EVERY 12 HOURS varenicline (CHANTIX) 1 mg, Oral ALLERGIES: No Known Allergies SURGICAL HISTORY: Past Surgical History: Procedure Laterality Date ADENOIDECTOMY 05/16/2009 CERVICAL BIOPSY W/ LOOP ELECTRODE EXCISION HYSTERECTOMY 10/27/2015 LAPAROSCOPY DIAGNOSTIC / BIOPSY / ASPIRATION / LYSIS 03/13/2016 MR ANGIOGRAM HEAD WO IV CONTRAST 06/18/2023 MR ANGIOGRAM HEAD WO IV CONTRAST 06/18/2023 [facility] MR TONSILLECTOMY 05/16/2009 FAMILY HISTORY: Family History Problem Relation Name Age of Onset Cancer Mother Lung Hyperlipidemia Brother Hypertension Brother Irritable bowel syndrome Brother Cancer Maternal Grandmother Colon Colon cancer Maternal Grandmother Melanoma Maternal Grandfather Alzheimer's disease Paternal Grandfather SOCIAL HISTORY: Social History Tobacco Use Smoking status: Former Current packs/day: 0.00 Types: Cigarettes Quit date: 05/03/2001 Years since quittin.6 Smokeless tobacco: Never Tobacco comments: Smokes 60 mins after waking up Thinking about quitting Vaping Use Vaping status: Some Days Substance Use Topics Alcohol use: Never Comment: caffeine: 1-2 cups per day soda Drug use: Never Depression: Not on file REVIEW OF SYMPTOMS: Review of Systems OBJECTIVE: Visit Vitals BP 112/78 Pulse 75 Temp 97.9 F Ht 5' 2 Wt 186 lb SpO2 99% BMI 34.02 kg/m OB Status Hysterectomy Smoking Status Former BSA 1.92 m Physical Exam Constitutional: Appearance: Normal appearance. [...] alert. Psychiatric: Mood and Affect: Mood normal. Results Laboratory Studies Chloride was minimally elevated. Good cholesterol was low. Triglycerides were good. LDL was 70 or less. ASSESSMENT AND PLAN: Assessment & Plan 1. Anxiety. Her anxiety symptoms are possibly contributing to her sensation of air hunger. She reports increased anxiety, particularly around 4:00 PM, and has been using Ativan to manage her symptoms. A daily low dose of buspirone 5 mg will be initiated, with instructions to take it once daily for the first few weeks. She can continue using Ativan as needed. Counseling is recommended to help manage her anxiety- patient will consider 2. Low HDL Cholesterol. Her HDL cholesterol level is low, which is a risk factor for cardiovascular disease. She is advisedto engage in regular exercise, such as walking, to help improve her HDL levels. 3. Hypertension. Her blood pressure readings have been low, causing dizziness and lightheadedness. She is advised toreduce her Benicar dosage to 2.5 mg daily by cutting the 5 mg pill in half. She should continue monitoring her blood pressure at home. 4. Pulmonary Symptoms. She reports feeling more winded recently. Pulmonary function tests will be ordered to assess for asthma, reactive airway disease, COPD, or emphysema with hx of tobacco use. Recommend stopping any vaping. 5. Cardiovascular Risk. A stress test will be ordered to evaluate for any underlying cardiovascular issues. If any abnormalities are detected, a referral to cardiology will be made. 6. Medication Management. She will continue her cholesterol medication at 40 mg and daily baby aspirin. A prescription for Ativan 1 mg and ibuprofen will be provided. Follow-up A follow-up visit is scheduled in 3 months. Assessment/Plan Diagnoses and all orders for this visit: Hypertension, unspecified type (CMS/HCC) - STRESS TEST TREADMILL; Future Occlusion of left carotid artery - STRESS TEST TREADMILL; Future Anxiety - busPIRone (Buspar) 5 MG tablet; Take 1 tablet (5 mg) by mouth in the morning and 1 tablet (5 mg) before bedtime. - LORazepam (Ativan) 1 MG tablet; Take 1 tablet (1 mg) by mouth every 8 (eight) hours if needed foranxiety Crohn's disease with complication, unspecified gastrointestinal tract location (CMS/HCC) Shortness of breath - STRESS TEST TREADMILL; Future - Pulmonary Function Test Tobacco abuse - Pulmonary Function Test Other chronic pain - ibuprofen 800 MG tablet; Take 1 tablet (800 mg) by mouth 3 (three) times a day as needed for mildpain Vapes non-nicotine containing substance HTN check after new medication, review lab work documented in this encounterMercy Hospital [id number] NoteHNO ID: [id number] Author: CATHI DIANE MD Service: ? Author Type: Physician Type: Progress Notes Filed: 08/02/2023 10:32 Note Text: [facility] [place] DEPARTMENT OF VASCULAR SURGERY OUTPATIENT VISIT DATE August 02, 2023 OUTPATIENT VISIT TYPE CONSULTATION SERVICE DATE: 08/02/2023 SERVICE TIME: 10:06 AM PRIMARY CARE PHYSICIAN: Frida Garsia MD, MD REFERRING PROVIDER: Frida Garsia MD ([facility]) [address] [place] [phone] Consult requested for an opinion regarding the [...] the bifurcation. There is (more content not included)...[facility]04-01-2024 History of Present illness Narrative* Cathi Diane MD - 08/02/2023 10:05 AM EDT Images from the original note were not included. [facility] [place] DEPARTMENT OF VASCULAR SURGERY OUTPATIENT VISIT DATE August 02, 2023 OUTPATIENT VISIT TYPE CONSULTATION SERVICE DATE: 08/02/2023 SERVICE TIME: 10:06 AM PRIMARY CARE PHYSICIAN: Frida Garsia MD, MD REFERRING PROVIDER: Frida Garsia MD ([facility]) [address] [facility] [phone] Consult requested for an opinion regarding the evaluation and treatment of the above. My final impression and recommendations will be communicated back to the requesting physician by way of the shared medical record or letter via [place] mail. CHIEF COMPLAINT: left carotid occlusion HISTORY OF PRESENT ILLNESS: Vascular consultation at the request of Dr. Frida Garsia. A copy of this consultation note willbe provided to the requesting physician by way [...] OF 2016 hysterectom PAST SURGICAL HISTORY OF 2009 tonsillectomy [...] if statin intolerant Smoking avoidance and .Trans [place] InterSocietal Consensus II (TASC II) Recommendation. Lipid control in patients with peripheral arterial disease (PAD) All symptomatic PAD patients should have their low-density lipoprotein (LDL)- cholesterol lowered to(<100 mg/dL). In patients with PAD and a [...] 2023 TIME: 10:06 AM documented in this encounterOhiohealth [facility]03-27-2024 Miscellaneous Notes* Telephone Encounter - Brenda Warren - 07/28/2023 9:23 AM EDT Study TItle: Risk Assessment of Stroke Using Non-Invasive Ultrasonic Backscatter from Carotid Plaque (RUNUP) IRB#: [id number] PI: Destiny Ortiz, PhD Phone#: [phone] COORDINATOR/Research Nurse/Quantitative Developer: Kalyan Guzman, PhD or Brenda Warren or [phone] Pager: [phone] Recruitment Telephone Contact to introduce the study [...] questions feel free to contact me at [phone]. REMINDER Confirm the scheduled date and time of their Ultrasound Exam with the subject. Brenda Warren documented in this encounterOhiohealth O'[facility]len[facility]03-12-2024 Miscellaneous Notes* Telephone Encounter - Marina Brown - 07/13/2023 10:07 AM EDT Reason for call: Pt called and she would like to schedule an appt with Dr Cathi Diane. Home and cell number: [phone] Diagnosis: Oclusion of left carotid artery Kind Marina Montez documented in this encounterOhiohealth O'[facility]len[facility]02-13-2024 History of Present illness Narrative* Frida Garsia MD - 06/15/2023 9:20 AM EST Socorro Garcia is a 42 y.o. female presents with chief complaint of Hypertension HPI: She is here to discuss her bp. She thinks that she needs a higher medication, her bp has been running [id number] 136/99. She has been getting headaches when [...] HISTORY: Past Medical History: Diagnosis Date Depression ([facility]) H/O Crohn's disease MEDICATIONS: Current Outpatient Medications [...] the possible complications of hypertension, including increased riskof heart disease and stroke, and kidney problems. [...] these goals with the following plan: Barriers tothese goals have been discussed. documented in this encounterMercy Hospital [id number] Procedure noteFirClinton Memorial HospitalEvaluation noteNo assessment information available [facility] Work Phone: Evaluation note* Diagnosis Hypertension, unspecified type (CMS/HCC)- Primary Crohn's disease with complication, unspecified gastrointestinal tract location (CMS/HCC) Family history of brain aneurysm Family history of other cardiovascular diseases Shortness of breath Encounter for wellness examination in adult Tobacco abuse Tobacco use disorder Tobacco abuse counseling documented in this encounter [facility]* Diagnosis Occlusion and stenosis of left carotid artery- Primary Occlusion and stenosis of carotid artery without mention of cerebral infarction documented in this encounter [facility]* Diagnosis Left carotid artery occlusion [...] (HCC) Other emphysema documented in this encounter [facility]* Diagnosis Hypertension, unspecified type (CMS/HCC) documented in this encounter [facility]* Diagnosis Well adult exam- Primary Routine general medical examination at a health care facility Family history of brain aneurysm Family history of other cardiovascular diseases Hypertension, unspecified type (CMS/HCC) Shortness of breath Screening mammogram for breast cancer Anxiety Anxiety state, unspecified Other chronic pain documented in this encounter [facility]* Diagnosis Well adult exam- Primary Routine general medical examination at a [facility] Family history of brain aneurysm Family history of other cardiovascular diseases Hypertension, unspecified type (CMS/HCC) Shortness of breath Screening mammogram for breast cancer Anxiety Anxiety state, unspecified Mild persistent asthma without complication (CMS/HCC)- Primary Hypertension, unspecified type (CMS/HCC) Occlusion of left carotid artery Occlusion and stenosis of carotid artery without mention of cerebral infarction Anxiety Anxiety state, unspecified Shortness of breath Tobacco abuse Tobacco use disorder documented in this encounter [facility]* Diagnosis Hypertension, unspecified type (CMS/HCC)- Primary Occlusion of left carotid artery Occlusion and stenosis of carotid artery without mention of cerebral infarction Anxiety Anxiety state, unspecified Crohn's disease with complication, unspecified gastrointestinal tract location (CMS/HCC) Shortness of breath Tobacco abuse Tobacco use disorder Other chronic pain Vapes non-nicotine containing substance documented in this encounter [facility]* Diagnosis Well adult exam- Primary Routine general medical examination at a [facility] Family history of brain aneurysm Family history of other cardiovascular diseases Hypertension, unspecified type (CMS/HCC) Shortness of breath Screening mammogram for breast cancer Anxiety Anxiety state, unspecified Anxiety Anxiety state, unspecified Other chronic pain [facility] this encounter [facility] Diagnosis Well adult exam- Primary Routine general medical examination at a [facility] facility Family history of brain aneurysm Family history of other cardiovascular diseases Hypertension, unspecified type (CMS/HCC) Shortness of breath Screening mammogram for breast cancer Anxiety Anxiety state, unspecified Other chronic pain documented in this encounter [facility]* Diagnosis Well adult exam- Primary Routine general medical examination at a [facility] facility Family history of brain aneurysm Family history of other cardiovascular diseases Hypertension, unspecified type (CMS/HCC) Shortness of breath Screening mammogram for breast cancer Anxiety Anxiety state, unspecified Anxiety Anxiety state, unspecified documented in this encounter [facility] Diagnosis Well adult exam- Primary Routine general medical examination at a [facility] facility Family history of brain aneurysm Family history of other cardiovascular diseases Hypertension, unspecified type Shortness of breath Screening mammogram for breast cancer Anxiety Anxiety state, unspecified Well woman exam with routine gynecological exam Routine gynecological examination Breast cancer screening by mammogram documented in this encounter [facility] Author Steven Rose [facility] April 09, 2023 8:41am Note Date/Time April 09, 2023 8 :41am [facility] [address] [place] [address] Gastroenterology H&P Signed Patient: Socorro Garcia MR#: [id number] : 1980 Acct:[id number] Age/Sex: 42 / F Adm Date: 3 Loc: Room: Type: [facility] Attending Dr: Steven Rose MD Copies to: [...] <Electronically signed by Steven Rose MD> 04/09/23 0810 [facility] Work Phone: Hospital Discharge instructions Additional Instructions [...] problems. -Follow up with PCP. -Office number [phone]. [facility] Work Phone: Reason for referral (narrative)* Outpatient Procedure (Routine) - Authorized Specialty Diagnoses / Procedures Referred By Jasiel rocha Referred To [facility] Diagnoses Occlusion and stenosis of left carotid artery Procedures US CAROTID ARTERIES LEANDRO VAS LAB DUPLEX SCAN EXTRACRANIAL ART COMPL BI STUDY Cathi Diane MD [address] [place] [address] [facility] [address] [place] [address] Referral ID Status Reason Start Date Expiration Date Visits Requested Visits Authorized [id number] Authorized Auto-Generat ed Referral 07/14/2023 07/13/2024 1 1 [facility] Summary Purpose Family History Relationship Condition [...] Unknown Family history of lung cancer Unknown Relationship Condition Age at Onset Recorded Date/T bryan mother Small cell carcinoma of lung Unknown father Cerebral aneurysm Unknown brother Family history of lung cancer Unknown Unknown father Unknown Aneurysm Unknown mother Unknown Family history of lung cancer Unknown Advance Directives Advance Directive Response Recorded Date/ Time Advance Directives No April 07, 2023 3:22pm Advance Directive Response Recorded Date/ Time Advance Directives No April 07, 2023 4:22pm Chief Complaint and Reason for Visit Chief Complaint Crohn's Disease Chief Complaint Crohn's Disease R06.02 Chief Complaint z00.00 i10 Chief Complaint z00.00 i10 i10 i65.22 r06.02 z72.0 i10 i65.22 r06.02 z72.0 Chief Complaint Admit Date i65.29 June 28, 2024 9:04am 1 YEAR FOLLOW UP; CAROTID DUPLEX 9:00A F ebruary 2024 9:06am Reason for Visit Admit Date Left carotid artery occlusion June 042024 9:06am Reason for Referral Specialty Diagnoses / Procedures Referred By Jasiel rocha Referred To Contact Radiology Diagnoses Family history of brain aneurysm Procedures MR angiogram head wo IV contrast MR angiogram head w IV contrast Frida Garsia MD [address] [place] [address] [facility] [address] [place] [address] Referral ID Status Reason Start Date Expiration Date V isits Requested Visits Authorized [id number] Authorized 06/15/2023 12/12/2023 1 1 Specialty Diagnoses / Procedures Referred By Contac t Referred To Contact Radiology Diagnoses Hypertension, unspecified type (CMS/HCC) Shortness of breath Procedures Transthoracic Echo (TTE) Complete Frida Garsia MD [address] [place] [address] [place] [address] Phone: [phone] Fax: [phone] Referral ID Status Reason Start Date Expiration Date Visits Requested Visits Authorized [id number] Authorized Perform Procedure 06/15/2023 12/12/2023 1 1 Specialty Diagnoses / Procedures Referred By Contac t Referred To Contact Radiology Diagnoses Hypertension, unspecified type (CMS/HCC) Occlusion of left carotid artery Shortness of breath Procedures STRESS TEST TREADMILL Frida Garsia MD [address] [place] [id number] Referral ID Status Reason Start Date Expiration Date V isits Requested Visits Authorized [id number] Authorized 01/04/2024 07/02/2024 1 1 Additional Source Comments INFORMATION SOURCE (unrecogn ized section and content) DATE CREATED AUTHOR 05/30/2021 [facility] dical Specialist DATE CREATED AUTHOR AUTHOR'S ORGANIZ ATION 12/27/2021 [facility] DATE CREATED AUTHOR AUTHOR'S ORGANIZ ATION 03/13/2022 [facility] p[facility] DATE CREATED AUTHOR AUTHOR'S ORGANIZ ATION 08/02/2023 [facility] DATE CREATED AUTHOR AUTHOR'S ORGANIZ ATION 04/06/2024 [facility] dical Specialists EPIC DATE CREATED AUTHOR AUTHOR'S ORGANIZ ATION 08/12/2024 [facility] y[facility] Care Teams (unrecognized sec tion and content) Team Status: Active Member Role Status Dates Frida Garsia MD Primary Care Provider Active Team Status: Inactive Member Role Status Dates Frida Garsia MD Primary Care Provider Active Steven Rose MD Attending Provider Active Behaviour Support Teacher Relationship Specialty Start Date End Date Frida Garsia MD [address] [place], [place] [id number] PCP - General Family Medicine 09/29/22 Frida Garsia MD [address] [place] [address] PCP - Medical [employer] 10/01/22 Behaviour Support Teacher Relationship Specialty Start Date End Date Frida Garsia MD [address] [place] [address] PCP - General Family Medicine 09/29/22 Frida Garsia MD [address] [place] [address] PCP - Medical [employer] 10/01/22 Team Status: Inactive Member Role Status Dates Frida Garsia MD Primary Care Provider Active Start: April 09, 2023 End: April 09, 2023 Steven Rose MD Attending Provider Active Start: April 09, 2023 End: April 09, 2023 Team Status: Inactive Member Role Status Dates Frida Garsia MD Primary Care Provide r, Attending Provider Active Start: June 24, 2023 End: June 24, 2023 Behaviour Support Teacher Relationship Specialty Start Date End Date Frida Garsia MD [address] [place] [address] Referring Family Medicine 07/08/23 Behaviour Support Teacher Relationship Specialty Start Date End Date Frida Garsia MD [address] [place] [address] PCP - General Family Medicine 07/14/23 Behaviour Support Teacher Relationship Specialty Start Date End Date Friad Garsia MD [address] [place] [address] PCP - General Family Medicine 07/14/23 Behaviour Support Teacher Relationship Specialty Start Date End Date Frida Garsia MD [address] [place] [address] PCP - General Family Medicine 07/14/23 Team Status: Inactive Member Role Status Dates Frida Garsia MD Primary Care Provide r, Attending Provider Active Start: January 01, 2024 End: January 01, 2024 Behaviour Support Teacher Relationship Specialty Start Date End Date Frida Garsia MD [address] [place] [address] PCP - General Family Medicine 09/29/22 Frida Garsia MD [address] [place] [address] PCP - [facility] 10/31/18 05/02/99 Team Status: Inactive Member Role Status Dates Frida Garsia MD Primary Care Provide r, Attending Provider Active Start: February 24, 2024 End: February 24, 2024 Kael Shabazz DO Referring Provider Active S tart: February 24, 2024 End: February 24, 2024 Team Status: Active Member Role Status Dates Frida Garsia MD Primary Care Provide r, Other Provider Active Start: February 24, 2024 Kael Shabazz DO Referring Provider Active S tart: February 24, 2024 Cameron Hodge MD Attending Provider Active Start: February 24, 2024 Behaviour Support Teacher Relationship Specialty Start Date End Date Frida Garsia MD [address] [place] [address] PCP - General Family Medicine 09/29/22 Frida Garsia MD [address] [place], [place] [id number] PCP - Medical [employer] 10/31/18 05/02/99 Behaviour Support Teacher Relationship Specialty Start Date End Date Frida Garsia MD [address] [place], [place] [id number] PCP - General Family Medicine 09/29/22 Frida Garsia MD [address] [place], [place] [id number] PCP - Medical [employer] 10/31/18 05/02/99 Behaviour Support Teacher Relationship Specialty Start Date End Date Frida Garsia MD [address] [place], [place] [id number] PCP - General Family Medicine 09/29/22 Frida Garsia MD [address] [place], [place] [id number] PCP - Medical [employer] 10/31/18 05/02/99 Behaviour Support Teacher Relationship Specialty Start Date End Date Frida Garsia MD [address] [place], [place] [id number] PCP - General Family Medicine 09/29/22 Frida Garsia MD [address] [place], [place] [id number] PCP - Medical [employer] 10/31/18 05/02/99 Behaviour Support Teacher Relationship Specialty Start Date End Date Frida Garsia MD [address] [place] [address] PCP - General Family Medicine 09/29/22 Frida Garsia MD [address] [place], [place] [id number] PCP - Medical [employer] 10/31/18 05/02/99 Behaviour Support Teacher Relationship Specialty Start Date End Date Frida Garsia MD [address] [place], [place] [id number] PCP - General Family Medicine 09/29/22 Frida Garsia MD [address] [place], [place] [id number] PCP - Medical [employer] 10/31/18 05/02/99 Team Status: Inactive Member Role Status Dates Frida Garsia MD Primary Care Provider Active Start: June 28, 2024 End: June 28, 2024 Mane Abernathy MD Attending Provider Active Start: June 28, 2024 End: June 28, 2024 Behaviour Support Teacher Relationship Specialty Start Date End Date Frida Garsia MD [address] [place], [place] [id number] PCP - General Family Medicine 09/29/22 Frida Garsia MD [address] [place], [place] [id number] PCP - Medical [employer] 10/31/18 05/02/99 Behaviour Support Teacher Relationship Specialty Start Date End Date Frida Garsia MD [address] [place], [place] [id number] PCP - General Family Medicine 09/29/22 Frida Garsia MD [address] [place] [address] PCP - Medical [employer] 10/31/18 05/02/99 Behaviour Support Teacher Relationship Specialty Start Date End Date Frida Garsia MD [address] [place] [address] PCP - General Family Medicine 09/29/22 Frida Garsia MD [address] [place] [address] PCP - Medical [employer] 10/31/18 05/02/99 Reason for Visit (unrecogniz ed section and content) Reason Comments Hypertension Reason Comments Appointment Reason Comments Research Reason Comments Consult Reason Comments Med Refill Reason Comments Hypertension Reason Comments Well Women Visit Source Comments (unrecognize d section and content) In the event this informatio n is protected by the Federal Confidentiality of Alcohol and Drug Abuse Patient Records regulations: The Federal rules restrict any use of the information to criminally investigate or prosecute any alcohol or drug abuse patient.[facility] the event this information is protected by the Federal Confidentiality of Alcohol and Drug Abuse Patient Records regulations: The Federal rules restrict any use of the information to criminally investigate or prosecute any alcohol or drug abuse patient.[facility] the event this information is protected by the Federal Confidentiality of Alcohol and Drug Abuse Patient Records regulations: The Federal rules restrict any use of the information to criminally investigate or prosecute any alcohol or drug abuse patient.[facility] the event this information is protected by the Federal Confidentiality of Alcohol and Drug Abuse Patient Records regulations: The Federal rules restrict any use of the information to criminally investigate or prosecute any alcohol or drug abuse patient.[facility] Goals (unrecognized section and content) Goals may be documented in a n alternate sectionGoals may be documented in an alternate sectionGoals may be documented in an alternate section FOR RECORDS PERTAINING TO PATIENTS WHO ARE [...] BE BASED ON THE PRIMARY CLINICAL RECORDS. [facility]. provides no warranty or guarantee of the accuracy or completeness of information in this document.
--- OUTSIDE RECORDS SUMMARY | 2024-11-11 09:58 | XMS_ITS | Encounter Summary ---
Author Organization [facility] Address [address] [place] [address] Care Team Providers Care Floor Coverings Salesperson Name Role Phone Frida Garsia MD Primary Care Provider [phone] Frida Garsia MD Unavailable [phone] Encounter Details Date Type Department Care Team (Latest Contact Info) Description 11/02/2024 Travel Social History Tobacco Use Types Packs/Day Years [...] often do you attend chur ch or judaism services? Never 09/30/2022 Do you belong to any clubs o r organizations such as adventist groups, unions, fraternal or athletic groups, or school groups? No [...] and heating? Not hard at all 09/30/2022 [facility] [place] of Occupat ional Health - Occupational Stress [...] place to sleep or slept in a senior living (including now)? No 09/30/2022 Comments No Sex and Gender Information Value Date Recorded Sex Assigned at Not on file Legal Sex Female 7:12 PM EDT Gender Identity Not on file Sexual Orientation Not on file documented as of this encounter Plan of Treatment Not on file documented as of this encounter Visit Diagnoses Not on filedocumented in this encounter Care Teams Floor Coverings Salesperson Relationship Specialty Start Date End Date Frida Garsia MD [address] [place] [address] PCP - General Family Medicine 09/29/22 Frida Garsia MD [address] [place] [address] PCP - Medical [employer] 10/31/18 05/02/99 documented as of this encounter
--- OUTSIDE RECORDS SUMMARY | 2024-11-11 09:59 | XMS_ITS | Clinical Summary ---
Author Organization [facility] Address [address] [place] [address] Care Team Providers Care Interventional Physiatrist Name Role Phone Frida Garsia MD Primary Care Provider [phone] Frida Garsia MD Unavailable [phone] Allergies No known active allergies Medications acyclovir (Zovirax) 5 % ointmentIndicatio ns:Cold sore Apply topically 6 (six) times a day. Space applications every 3 hours. 30 g 3 023 Active aspirin 81 MG EC tablet Take 81 mg by mouth 1 (one) time each day at the same time Active valACYclovir (Valtrex) 1 g tabletIndications :Cold sore TAKE 1 TABLET BY MOUTH EVERY 12 HOURS 180 tablet 2 024 Active dicyclomine (Bentyl) 20 MG tabletIndications :Nausea,Flatulenc e/gas pain/belching,Michelle rrhea, unspecified type,Abdominal bloating with cramps Take 1 tablet (20 mg) by mouth 3 (three) times a day as needed (abdominal cramping) 21 tablet 024 Active LORazepam (Ativan) 1 MG tabletIndications :Anxiety Take 1 tablet (1 mg) by mouth every 8 (eight) hours if needed for anxiety 30 tablet 024 Active fluticasone-salme terol (Advair HFA) 230-21 MCG/ACT inhalerIndication s:Mild persistent asthma without complication (HCC) Inhale 2 puffs in the morning and 2 puffs before bedtime. Rinse mouth with water after use to reduce aftertaste and incidence of candidiasis. Do not swallow.. 12 g 3 024 2024 Active olmesartan (BENIcar) 5 MG tabletIndications :Hypertension, unspecified type TAKE 1 TABLET BY MOUTH EVERY DAY 90 tablet 1 025 Active ibuprofen 800 MG tabletIndications :Other chronic pain TAKE 1 TABLET BY MOUTH THREE TIMES A DAY NEEDED FOR MILD PAIN 90 tablet 1 025 Active busPIRone (Buspar) 5 MG tabletIndications :Anxiety TAKE 1 TABLET BY MOUTH IN THE MORNING AND BEFORE BEDTIME 180 tablet 1 025 Active atorvastatin (Lipitor) 40 MG tabletIndications :Hyperlipidemia, unspecified hyperlipidemia type TAKE 1 TABLET BY MOUTH EVERY DAY 90 tablet 025 Active varenicline (Chantix) 1 MG tablet Take 1 mg by mouth 024 2024 Discontinued(O ther) atorvastatin (Lipitor) 40 MG tabletIndications :Hyperlipidemia, unspecified hyperlipidemia type Take 1 tablet (40 mg) by mouth Daily 30 tablet 2 025 2024 Discontinued Active Problems Problem Noted Date Diagnosed Date Abnormal MRI 01/04/2024 Hyperlipidemia 01/04/2024 Benign essential HTN 08/02/2023 Centrilobular emphysema 08/02/2023 Depression 08/02/2023 Left carotid artery occlusion 08/02/2023 Tobacco abuse 08/02/2023 Anxiety 10/01/2022 Assessment & Plan (10/01/2022 12:37 PM EDT): Medication as directed with prn ativan but could consider a daily medication. Counseling recommended. Follow up in one month to assess response to treatment. Verbalizes understanding of the need to be seen in the ER for suicidal/homicidal ideation. Patient strongly encouraged to avoid alcohol and drug substances while on medications. Patient informed that this can cause adverse reactions and ineffectiveness of medications. [place] reviewed as necessary for use of controlled substances Class 1 obesity 10/01/2022 Crohn's disease, unspecified , with unspecified complications 10/01/2022 Genital warts 10/01/2022 Other chronic pain 10/01/2022 Primary insomnia 10/01/2022 Chronic sinusitis 10/01/2022 Tubular adenoma 10/01/2022 Hypertension 10/01/2022 Assessment & Plan (10/01/2022 12:39 PM EDT): Prior to your visit today the team [...] Barriers to these goals have been discussed. Recommend daily hydrochlorothiazide. Take in the morning. Stay hydrated. Recheck blood pressure in a month. Family history of brain aneurysm 10/01/2022 Assessment & Plan (10/01/2022 12:39 PM EDT): Patient reports that her father in his 40s from a brain aneurysm. Patient had a MRI in her 20s but she has not had any further imaging. She does get occasional headaches no other sign of concerns for aneurysm. I will do an MRA to further assess due to risk of aneurysm with 1st degree relative dx. Shortness of breath 10/01/2022 Assessment & Plan (10/01/2022 12:40 PM EDT): Patient is having more shortness of breath and occasional heart palpitations. She had a history of COVID in 2021. I recommend checking an echocardiogram to further assess. Patient is asking that this be done at [facility]. I will also check a baseline EKG. She had one in 2019 that was normal. We could consider stress testing or Holter monitor as next steps if symptoms continue. Well adult exam 10/01/2022 Assessment & Plan (10/01/2022 12:37 PM EDT): Wellness performed at today. Height, weight, BMI, problem list, and immunizations records reviewed. Dental care discussed with patient. Encouraged annual vision screenings and semi-annual dental care. Encouraged to eat a diet that is rich in plant-based foods and lean protein. Encouraged regular periods of exercise. Limit or eliminate junk food and sources of excess calories. Encouraged to maintain open communication with provider regarding any changes in condition. Encouraged 150 minutes of exercise weekly or amount appropriate to current level of function. Discussed family/friend/social support and importance of maintaining emotional connections. Follow up annually and as needed. Patient verbalized understanding of importance of keeping open communication with health care providers. Resolved Problems Problem Noted Date Diagnosed Date Resolved Date Yeast infection 10/01/2022 10/01/2022 Encounters Date Type Department Care Team Description 11/09/2024 8:30 AM EDT Office Visit [facility] [address] [place] [address] Chandan Hendrix, Well woman exam with routine gynecological exam; Breast cancer screening by mammogram 11/09/[address] [facility] [address] [place] [address] Domenica Tim LPN 11/09/2024 Bamboo flowsheet [facility] [address] [place] [address] Chandan Hendrix DO 11/02/2024 Travel 10/23/2024 Refill [facility] [address] [place] [address] Frida Garsia MD Hyperlipidemia, unspecified hyperlipidemia type ; Hypertension, unspecified type from Last 3 Months Immunizations Immunization Administration Dates Next Due Influenza, seasonal, intradermal, preservative f ree 02/16/2013 Novel [id number], preservative-free 05/12,05/03/2009 Tetanus toxoid, adsorbed 08/09/2003 Family History Medical History Relation Name Comments Hyperlipidemia Brother Hypertension Brother Irritable bowel syndrome Brother Melanoma Maternal Grandfather Cancer Maternal Grandmother Colon Colon cancer Maternal Grandmother Cancer Mother Lung Alzheimer's disease Paternal Grandfather Relation Name Status Comments Brother Alive Daughter Alive Father Maternal Grandfather Maternal Grandmother Mother Blood Transfusi on Paternal Grandfather Son Alive Social History Tobacco Use Types Packs/Day Years Used Date Smoking Tobacco: Former Cigarettes Q uit: 05/03/2001 Smokeless Tobacco: Never Tobacco Cessation:Counseling Given: Not Answered Comments:Smokes 60 mins after waking up Thinking about quitting Alcohol Use [...] often do you attend chur ch or anabaptism services? Never 09/30/2022 Do you belong to any clubs o r organizations such as tenriism groups, unions, fraternal or athletic groups, or [...] and heating? Not hard at all 09/30/2022 [facility] [place] of Occupat ional Health - Occupational Stress [...] place to sleep or slept in a longterm (including now)? No 09/30/2022 Comments No Sex and Gender Information Value Date Recorded Sex Assigned at Not on file Legal Sex Female 7:12 PM EDT Gender Identity Not on file Sexual Orientation Not on file Last Filed Vital Signs Vital Sign Reading Time Taken Comments Blood Pressure 118/78 11/09/2024 8:33 AM EDT Pulse 71 04/04/2024 3:14 PM EST Temperature 36.3 C (97.3 F) 04/04/2024 3:14 PM EST Respiratory Rate 17 04/04/2024 3:14 PM EST Oxygen Saturation 97% 04/04/2024 3:14 PM EST Inhaled Oxygen Concentration - - Weight 85.5 kg (188 lb 6.4 oz) 11/09/2024 8:33 A M EDT Height 157.5 cm (5' 2 ) 04/04/2024 3:14 PM EST Body Mass Index 34.46 04/04/2024 3:14 PM EST Plan of Treatment Health Maintenance Due Date Last Done Comments Mammogram 07/04/2024 07/05/2023, 03/05/2022 Influenza Vaccine (#1) 2025 02/16/2013 Cervical Cancer Screening Discontinued Pap Smear Discontinued 11/08/2023, 03/06/2022 HPV/Cotest Discontinued Procedures Procedure Name Priority Date/Time Associated Diagnosis Comments PAP SMEAR Routine 11/08/2023 12:00 AM EDT MAMMOGRAM, BILATERAL, SCREEN:* Routine 07/05/2023 11:53 AM EST from Last 3 Months or Most Recently Relevant to Health Maintenance Results * Pap Smear (11/08/2023 12:00 AM EDT) Swab Cervical swab / Unknown us Simeon Nurse [facility] CYTOLOGY ORDERABLES Final Result EXTERNAL LAB * MAMMOGRAM, BILATERAL, SCREEN:* (07/05/2023 11:53 AM EST) Anatomical Region Laterality Modality Radiographic Esther ging us Frida Garsia MD IMG XR PROCEDURES Final Resu lt from Last 3 Months or Most Recently Relevant to Health Maintenance Insurance [employer] Care Teams Interventional Physiatrist Relationship Specialty Start Date End Date Frida Garsia MD [address] [place] [address] PCP - General Family Medicine 09/29/22 Frida Garsia MD [address] [place] [address] PCP - Medical [employer] 10/31/18 05/02/99
--- OUTSIDE RECORDS SUMMARY | 2024-11-11 09:59 | XMS_ITS | Patient Health Record ---
Author Organization [facility] Address [address] [place] [address] Care Team Providers Care Technical Support Engineer Name Role Phone Frida Garsia Primary Care Provider Emily Alicea [phone] Allergies No Known Allergies Results Component Value Reference Range Notes Urine Culture and Sensitivit y Reviewed date:11/29/2023 07:54:37 AM Interpretation:Abnormal Performing Lab:QPT, [facility], [address] [place], [place] [id number] Dalton Rucker MD Notes/Report: 0 Received Date: CULTURE, URINE, ROUTINE SEE NOTE Specimen Source: Urine, clean catch Specimen Quality: Adequate Result: 10,000-49,000 CFU/mL of Escherichia coli E.coli INT JAYDEN AMOX/CLAVULANATE S <=2 AMPICILLIN S <=2 AMP/SULBACTAM S <=2 CEFAZOLIN NR <=4 2 CEFEPIME S <=1 CEFTAZIDIME S <=1 CEFTRIAXONE S <=1 CIPROFLOXACIN S <=0.25 GENTAMICIN S <=1 IMIPENEM S <=0.25 LEVOFLOXACIN S <=0.12 NITROFURANTOIN S <=16 PIP/TAZOBACTAM S <=4 TOBRAMYCIN S <=1 TRIMETHOPRIM/SULFA S <=20 S=Susceptible I=Intermediate R=Resistant * = Not Tested NR = Not Reported NN = See Therapy Comments THERAPY COMMENTS Note 1: For infections other than uncomplicated UTI caused by E. coli, K. pneumoniae or P. mirabilis: Cefazolin is resistant if JAYDEN > or = 8 mcg/mL. (Distinguishing susceptible versus intermediate for isolates with JAYDEN < or = 4 mcg/mL requires additional testing.) Note 2: For uncomplicated UTI caused by E. coli, K. pneumoniae or P. mirabilis: Cefazolin is susceptible if JAYDEN <32 mcg/mL and predicts susceptible to the oral agents cefaclor, cefdinir, cefpodoxime, cefprozil, cefuroxime, cephalexin and loracarbef. CULTURE, URINE, ROUTINE Micro Number: [id number] Test Status: Final Urinalysis (IH) Reviewed date:11/25/2023 01:43:47 PM Interpretation:Abnormal Performing Lab: Notes/Report: Abnormal Blood Non-Hemolyzed 10 negative - c a. 250 Rajendra/ml Urobili normal normal - 12 mg/dL Bili negative negative - large Protein negative negative - 500 mg/dL Nitrites negative negative - positive Ketone negative negative - large mg/dL Ascorbic Acid negative trace - large Glucose negative negative - > 1000 mg/dL pH 5 5.0 - 9.0 Spec. Gr. 1.005 1.000 - 1.030 LEUK 75 negative - ca. 5 00 Devante/ml Reason For Referral No Information Medications Medication SIG (Take, Route, Frequency, Duration) Notes Start Date End Date Status Olmesartan Medoxomil-HCTZ 20-12.5 MG 1 tablet Orally Once a day A ctive Aspirin Adult Low Dose 81 MG 1 tablet Orally Once a day A ctive IBU 800 MG 1 tablet with food o r milk as needed Orally every 8 hrs Active Lipitor 40 MG 1 tablet Orally Once a day Active Social History Tobacco Use: Social History Observation Description Date Details (start date - stop date) Former Smoker NA - NA Tobacco Control (Standard) Question Answer Notes Tobacco use: Former smoker How long has it been since you last smoked? 1-3 months Problems Problem Type SNOMED Code ICD Code Onset Dates Problem Status W/U Status Risk Notes Problem Hypertension (40429223) Hypertension (I10) Active confirmed Problem Anxiety (86263285) Anxiety (F41.9) Active confi rmed Problem Hyperlipidemia (60895965) Hyperlipidemia (E78.5) Active confirmed Problem [id number] Obesity (BMI 30.0-34.9) (E66.9) Active confirmed Vital Signs Temperature 97.4 degrees Fahrenheit 11/25/2023 Respiratory Rate 16 /min 11/25/2023 Blood pressure diastolic 72 mm Hg 11/25/2023 Height 64 in 11/25/2023 Blood pressure systolic 118 mm Hg 11/25/2023 Weight 185 lbs 11/25/2023 BMI 31.75 kg/m2 11/25/2023 Encounters Encounter Location Date Provider Diagnosis [id number] [facility] [place] [address] 11/25/2023 Emily Ho Acute cystitis with hematuria N30.01 and Obesity (BMI 30.0-34.9) E66.9 [id number] [facility] [address] [place] [address] 11/29/2023 Emily Ho Assessments Encounter Date Diagnosis (ICD Code) Assessment Notes Treatment Notes Treatment Clinical Notes Section Notes 11/25/2023 Obesity (BMI 30.0-34.9) (ICD-10 - E66.9) Learning About Healthy Weight material was published Continue healthy eating and exercise. May follow up with [employer] diet[facility]ians via a telehealth visit at [email or web address].[employer]/service s/telenutrition to help with dietary changes to lower BMI. 11/25/2023 Acute cystitis with hematuria (ICD-10 - N30.01) Urinary Tract Infection (UTI) in Women: Care Instructions material was published, Female Urinary Tract: Anatomy Sketch material was published Complete the entire course of antibiotics as prescribed, even when symptoms have improved, to prevent a relapse of infection and the development of antibiotic resistance. Follow up in the clinic or with PCP in 4-5 days if no improvement or worsening of symptoms. Specimen will be sent to outside lab and patient will receive third republican bill from laboratory. Patient verbalized understanding and agrees to plan of care. Please avoid carbonated drinks and caffeine. They can irritate the bladder. Urinate often and try to empty the bladder each time. Avoid bubble baths as these cause irritation. For women: empty bladder after sexual relations, avoid using feminine hygiene products if possible as these can cause irritation. Call your PCP or return to the clinic if symptoms do not resolve in 3-5 days. Please seek immediate care at ER/UC if worsening symptoms or new symptoms including fever, nausea, vomiting, worsening urinary symptoms, chills, body aches, increased discomfort, groin or belly pain or discomfort, or back discomfort/pain just below rib cage (flank pain). For post-menopausal women: if symptoms do not resolve, consider follow up with [facility] for evaluation of alternative causes that can mimic symptoms of UTI. URINE CX: HIGH DENSITY FINISHING OPERATOR notified TLC will notify patient/parent with urine cx results. Negative results will be published to patient portal. TLC will call with positive results and will treat with antibiotic if indicated and If not prescribed at time of visit. Please take all medications as prescribed including antibiotic through completion to decrease the risk of developing antibiotic resistance. Follow up with PCP if any further concerns or complaints. Follow up with UC/ED if any worsening symptoms including fever and flank discomfort. Patient agreeable and verbalized understanding. All questions answered. Patient has been explained that specimen will be sent to outside lab and agrees to outside third republican bill from laboratory. 11/25/2023 Other Nitrofurantoin Oral Capsule (NITROFURANTOIN/NI TROFURANTOIN MACROCRYSTALS - ORAL) material was published, Urine Culture: About This Test material was published Visit summary given to and discussed with patient and/or parent who verbalizes understanding and agreement with plan of care Thank you for your visit. Please look for the satisfaction survey that you will receive via email. We look forward to receiving your feedback regarding your experience at [facility]. Plan Of Treatment No Information Insurance Providers Payer Name Payer Address Payer Phone Subscriber Number Group Number Insured Name Patient Relationship to Insured Coverage Start Date Coverage End Date [facility] [address] [place] [address] [id number] BRANDON BENAVIDEZ Self - patient is the insured Medical (General) History Medical History History ICD Code Hypertension I10 Anxiety F41.9 Hyperlipidemia E78.5 Surgical History Surgery Date(Month/Year) tonsillectomy Hysterectomy Hospitalization History Reason Date(Month/Year) surgeries
--- OUTSIDE RECORDS SUMMARY | 2024-11-11 09:59 | XMS_ITS | Clinical Summary ---
Author Organization [facility] Address [address] [place] [address] Phone Care Team Providers Care Tunnel Kiln Repairer Name Role Phone Unavailable Primary Care Provider Unavailabl e Social History Tobacco Use Types Packs/Day Years Used Date Smoking Tobacco: Never Assessed Comments Unknown Sex and Gender Information Value Date Recorded Sex Assigned at Not on file Legal Sex Female 2:08 PM EST Gender Identity Not on file Sexual Orientation Not on file Plan of Treatment Health Maintenance Due Date Last Done Comments HIV Screening 1980 Lipid Panel 1980 Yearly Adult Physical 1981 MMR Vaccines (1 of 1 - Stand giovanna series) 1982 Varicella Vaccines (1 of 2 - 13+ 2-dose series) 1994 Hepatitis C Screening 08/15/1999 Hepatitis B Vaccines (1 of 3 - 19+ 3-dose series) 2000 Cervical Cancer Screening 2002 HPV/Cotest 2002 Pap Smear 2002 DTaP/Tdap/Td Vaccines (1 - Tdap) 08/15/2003 Mammogram 2021 COVID-19 Vaccine (1 - 2023-2 5 season) 2024 Influenza Vaccine (#1) 2025 Zoster Vaccines (1 of 2) 08/15/2031 HIB Vaccines Aged Out No longer eligi ble based on patient's age to complete this topic HPV Vaccines (No Doses Required) Completed Hepatitis A Vaccines Aged Out No long er eligible based on patient's age to complete this topic IPV Vaccines Aged Out No longer eligi ble based on patient's age to complete this topic Meningococcal Vaccine Aged Out No justin lucia eligible based on patient's age to complete this topic Pneumococcal Vaccine: Pediat rics and At-Risk Adult Patients Aged Out No longer erin gible based on patient's age to complete this topic Rotavirus Vaccines Aged Out No longer eligible based on patient's age to complete this topic Insurance [employer] Member Subscriber Plan / Payer ( fective 2023-Present) Name:Socorro Garcia Relation to Subscriber:Self Name:Socorro Garcia Payer ID:Not on file Type:Not on file Address: [address] [place] [id number] [employer]
--- OUTSIDE RECORDS SUMMARY | 2024-11-11 09:59 | XMS_ITS | Clinical Summary ---
Author Organization [facility] Address [address] [place], [place] [id number] Care Team Providers Care Center Line Cutter Operator Name Role Phone Frida Garsia MD Primary Care Provider + [phone] Allergies No known active allergies Medications acyclovir (ZOVIRAX) 5 % ointment Apply to affected area as needed. 03/01/2023 Active atorvastatin (LIPITOR) 40 mg tablet Take 1 tablet by mouth every morning. 07/01/2023 Active dicyclomine (BENTYL) 20 mg tablet Take 20 mg by mouth as needed. 12/15/2022 Active ibuprofen (MOTRIN) 800 mg tablet Take 800 mg by mouth as needed. 11/26/2022 Active LORazepam (ATIVAN) 1 mg tablet Take 1 mg by mouth as needed. 09/30/2021 Active valACYclovir (VALTREX) 1 gram tablet Take 1 tablet by mouth as needed. 03/17/2023 Active aspirin 81 mg cap Take 162 mg by mouth once daily. Active Active Problems Problem Noted Date Diagnosed Date Left carotid artery occlusion 08/02/2023 Benign essential HTN 08/02/2023 Tobacco abuse 08/02/2023 Depression 08/02/2023 Crohn's disease without complication 08/02/2023 Centrilobular emphysema 08/02/2023 Family History Medical History Relation Comments htn Brother Relation Status Comments Brother Social History Tobacco Use Types Packs/Day Years Used Date Smoking Tobacco: Former Cigarettes 1 28.2 0 05/03/1995 - 07/02/2023 Smokeless Tobacco: Never Tobacco Cessation:Counseling Given: Not Answered Alcohol Use Standard Drinks/Week Comments Yes 0 (1 standard drink = 0.6 oz pur e alcohol) socially Area Deprivation Index Answer Date Jose rded National Score (1-100), lower number is lower ri sk 59 08/02/2023 State Score (1-10), lower number is lower risk 4 08/02/2023 Data from: https://www.neighborhoodatlas.medicine.[facility].edu/. Last address used for calculation [address] 08/02/2023 Comments Unknown Sex and Gender Information Value Date Recorded Sex Assigned at Not on file Legal Sex Female 9:33 AM EST Gender Identity Not on file Sexual Orientation Not on file Last Filed Vital Signs Vital Sign Reading Time Taken Comments Blood Pressure 134/88 08/02/2023 10:13 AM EDT LEFT ARM Pulse 78 08/02/2023 10:13 AM EDT Temperature 36.7 C (98.1 F) 08/02/2023 10:08 AM EDT Respiratory Rate 14 08/02/2023 10:0 8 AM EDT Oxygen Saturation 98% 08/02/2023 10: 08 AM EDT Inhaled Oxygen Concentration - - Weight 80.2 kg (176 lb 14.4 oz) 08/02/2023 10:08 AM EDT Height 161.9 cm (5' 3.75 ) 08/02/2023 1 0:08 AM EDT with 1 ankle boots on cc Body Mass Index 30.6 08/02/2023 10:08 AM EDT Plan of Treatment Health Maintenance Due Date Last Done Comments Annual PCP Team Chronic Disease Visit 08/15/1999 Anxiety Screening 08/15/1999 HIV Screening 08/15/1999 Hepatitis C Screening 08/15/1999 DTaP,Tdap,Td Vaccine (1 - Tdap) 2000 Hepatitis B Vaccine (1 of 3 - 19+ 3-dose series) 2000 Pneumococcal Vaccine (1 of 2 - PCV) 2000 Cervical Cancer Screening 2002 Mammogram Screening 03/05/2023 03/05/2022 Covid-19 Vaccine (3 - season) 01/02/202403/2021, 04/22/2020 Influenza Vaccine (#1) 2025 3, 05/12/2009, 05/03/2009 Insurance [employer] PPO Care Teams Center Line Cutter Operator Relationship Specialty Start Date End Date Frida Garsia MD [address] [place] [address] PCP - General Family Medicine 07/14/23
--- OUTSIDE RECORDS SUMMARY | 2024-11-11 09:59 | XMS_ITS | Encounter Summary ---
Author Organization [facility] Address [address] [place] [address] Care Team Providers Care Assistant Paralegal Name Role Phone Frida Garsia MD Primary Care Provider [phone] Frida Garsia MD Unavailable [phone] Encounter Details Date Type Department Care Team (Late st Contact Info) Description 06/24/2023 Orders Only [facility] [address] [place] [id number] Frida Garsia MD [address] [place] [address] Social History Tobacco Use Types Packs/Day Years [...] 09/30/2022 How often do you attend chur or mosque services? Never 09/30/2022 Do you belong to any clubs o r organizations such as cheondoism groups, unions, fraternal or athletic groups, or [...] and heating? Not hard at all 09/30/2022 [facility] [facility] - Occupational Stress [...] place to sleep or slept in a mcc (including now)? No 09/30/2022 Comments Unknown Sex and Gender Information Value Date Recorded Sex Assigned at Not on file Legal Sex Female 7:12 PM EDT Gender Identity Not on file Sexual Orientation Not on file documented as of this encounter Plan of Treatment Not on file documented as of this encounter Procedures Procedure Name Priority Date/Time Associated Diagnosis Comments TRANSTHORACIC ECHO (TTE) COMPLETE Routine 06/24/2023 1:52 PM EST documented in this encounter Results * Transthoracic echo (TTE) complete (06/24/2023 1:52 PM EST) Anatomical Region Laterality Modality Heart Ultrasound us Frida Garsia MD CV ECHO PROCEDURES Final Res ult documented in this encounter Visit Diagnoses Not on filedocumented in this encounter Care Teams Assistant Paralegal Relationship Specialty Start Date End Date Frida Garsia MD [address] [place] [address] PCP - General Family Medicine 09/29/22 Frida Garsia MD [address] [place] [address] PCP - Medical [place] [employer] 10/31/18 05/02/99 documented as of this encounter
--- OUTSIDE RECORDS SUMMARY | 2024-11-11 09:59 | XMS_ITS | Encounter Summary ---
Author Organization [facility] Address [address] [place] [address] Care Team Providers Care Scaffold Setter Name Role Phone Frida Garsia MD Primary Care Provider [phone] Frida Garsia MD Unavailable [phone] Encounter Details Date Type Department Care Team (Late st Contact Info) Description 04/15/2023 Abstract [facility] [address] [place] [id number] Frida Garsia MD [address] [place] [address] Social History Tobacco Use Types [...] How often do you attend chur or anabaptism services? Never 09/30/2022 Do you belong to any clubs o r organizations such as holiness groups, unions, fraternal or athletic groups, or [...] and heating? Not hard at all 09/30/2022 [facility]at [facility] - Occupational Stress Questionnaire Answer Date Recorded [...] a longterm (including now)? No 09/30/2022 Comments Unknown Sex and Gender Information Value Date Recorded Sex Assigned at Not on file Legal Sex Female 7:12 PM EDT Gender Identity Not on file Sexual Orientation Not on file documented as of this encounter Plan of Treatment Not on file documented as of this encounter Visit Diagnoses Not on filedocumented in this encounter Care Teams Scaffold Setter Relationship Specialty Start Date End Date Frida Garsia MD [address] [place] [address] PCP - General Family Medicine 09/29/22 Frida Garsia MD [address] [place] [address] PCP - Medical [place] [employer] 10/31/18 05/02/99 documented as of this encounter
--- OUTSIDE RECORDS SUMMARY | 2024-11-11 09:59 | XMS_ITS | Encounter Summary ---
Author Organization [facility] Address [address] [place] [address] Care Team Providers Care Rental Car Ferry Driver Name Role Phone Frida Garsia MD Primary Care Provider [phone] Frida Garsia MD Unavailable [phone] Encounter Details Date Type Department Care Team (Late st Contact Info) Description 10/14/2023 Orders Only [facility] [address] [place] [address] System, Provider Not In Social History Tobacco Use Types Packs/Day Years [...] often do you attend chur ch or orthodox services? Never 09/30/2022 Do you belong to any clubs o r organizations such as buddhist groups, unions, fraternal or athletic groups, or [...] and heating? Not hard at all 09/30/2022 [facility] - Occupational Stress [...] place to sleep or slept in a nursing home (including now)? No 09/30/2022 Comments Unknown Sex and Gender Information Value Date Recorded Sex Assigned at Not on file Legal Sex Female 7:12 PM EDT Gender Identity Not on file Sexual Orientation Not on file documented as of this encounter Plan of Treatment Not on file documented as of this encounter Procedures Procedure Name Priority Date/Time Associated Diagnosis Comments ECG 12-LEAD Routine 08/05/2023 10:55 AM EDT TROPONIN I Routine 08/05/2023 10:55 AM EDT COMPREHENSIVE METABOLIC PANEL Routine 08/05/2023 10:55 AM EDT documented in this encounter Results * ECG 12 lead (08/05/2023 10:55 AM EDT) us Provider Not In System ECG ORDERABLES Final Res ult * Comprehensive metabolic panel (08/05/2023 10:55 AM EDT) Blood Venous blood specimen / Unknown us Provider Not In System LAB BLOOD ORDERABLES Kristin l Result * Troponin I (08/05/2023 10:55 AM EDT) Blood Venous blood specimen / Unknown us Provider Not In System LAB BLOOD ORDERABLES Kristin l Result documented in this encounter Visit Diagnoses Not on filedocumented in this encounter Care Teams Rental Car Ferry Driver Relationship Specialty Start Date End Date Frida Garsia MD [address] [place] [address] PCP - General Family Medicine 09/29/22 Frida Garsia MD [address] [place] [address] PCP - Medical [place] [employer] 10/31/18 05/02/99 documented as of this encounter
--- OUTSIDE RECORDS SUMMARY | 2024-11-11 09:59 | XMS_ITS | Encounter Summary ---
Author Organization [facility] Address [address] [place] [address] Care Team Providers Care Bottom Sander Name Role Phone Frida Garsia MD Primary Care Provider [phone] Frida Garsia MD Unavailable [phone] Encounter Details Date Type Department Care Team (Late st Contact Info) Description 06/24/2023 External Result Encounter [facility] External Department Unsolicited Frida Garsia MD [address] [place] [address] Social History Tobacco Use Types [...] often do you attend chur ch or yarsanism services? Never 09/30/2022 Do you belong to any clubs o r organizations such as jainism groups, unions, fraternal or athletic groups, or [...] and heating? Not hard at all 09/30/2022 [facility] Occupat ional Health - Occupational [...] place to sleep or slept in a care home (including now)? No 09/30/2022 Comments Unknown Sex and Gender Information Value Date Recorded Sex Assigned at Not on file Legal Sex Female 7:12 PM EDT Gender Identity Not on file Sexual Orientation Not on file documented as of this encounter Plan of Treatment Not on file documented as of this encounter Procedures Procedure Name Priority Date/Time Associated Diagnosis Comments CONGENITAL TRANSTHORACIC ECHO (TTE) COMPLETE 06/24/2023 7:52 AM EST documented in this encounter Results * Congenital transthoracic echo (TTE) complete (06/24/2023 7:52 AM EST) Anatomical Region Laterality Modality Heart Ultrasound 06/24/2023 7:52 AM EST Narrative 06/24/2023 12:22 PM EST [facility] [place] [address] Echocardiogram Signed Patient: Socorro Raphael MR#: [id number] : 1980 Acct:[id number] Age/Sex: 42 / F ADM Date: 06/24/23 Loc: Room: Type: [facility] Attending Dr: Frida Garsia MD Ordering Provider: Frida Garsia MD Date of Service: 06/24/23/ ECH/ECH echo transthoracic: SOB. Copies to: MD Rakan [...] V1 max: 124.2 cm/sec (0.7-1.7m/s)MV E max rfitz: 80.0 cm/sec(0.8-1.3m/s) MV A max fritz: 60.6 [...] LV V1 VTI: 22.6 cm Transcribed By: LIZZIE Performed At: 06/24/23 0752 Signed By: Rakan Haywood MD 06/24/23 1221 Procedure Note Sridhar Haywood MD - 06/25/2023 [facility] [place] [address] [place] [address] Echocardiogram Signed Patient: Socorro Raphael LMR#: [id number] : 1980Acct:[id number] Age/Sex: 42 / FADM Date: 06/24/23 Loc: Room:Type: [facility] Attending Dr: Frida Garsia MD Ordering Provider: Frida Garsia MD Date of Service: 06/24/23/ ECH/ECH echo transthoracic: SOB. Copies to: MD Rakan Singleton MD Weight: 180 lb Performed By: Jess Nelson RDCS BSA: 1.8 m2 BP: 133/88 mmHg HR: 68 Reason For Study: SOB. History: No cardiac history per patient Interpretation Summary The left ventricular size, thickness and function are normal Ejection Fraction = 60-65%. There is trace tricuspid regurgitation. Procedure/Quality: A two-dimensional transthoracic echocardiogram withcolor flow and Doppler was performed. The study was technically good in quality. Left Ventricle: The left ventricular size, thickness and function are normal. Ejection Fraction = 60-65%. No left ventricular thrombus or massis seen. Left Atrium: The left atrium appears [...] tricuspid valve is normal in structure. There istrace tricuspid regurgitation. Pulmonic Valve: The pulmonic valve is not well visualized. Arteries: The aortic root is normal size. The aortic arch was visualizedand no abnormalities were seen. Pericardium/Pleura: No pericardial effusion seen. There is no pleural effusion. IVC/Hepatic Veins: The inferior vena cava is normal in size, with anormal collapsibility index. Measurements with Normals IVSd: 0.88 [...] 8.1 cm SV(MOD-sp4): LAV(MOD-sp4): LA A2 area: 11.7cm2 EDV(MOD-sp4): 50.0 ml 15.1 ml 82.1 ml LAV(MOD-sp2): LA A4 area: 9.1cm2 LVLs ap4: 6.7 cm 21.2 ml LA length (vol): ESV(MOD-sp4): 4.6 cm 32.1 ml LA vol: 19.7 ml EF(MOD-sp4): 60.9 % LA vol index: 10.9 ml/m2 Doppler Measurements Calculations MV dec time: E/E' lat: 4.6 MV dec slope: Ao V2 max: 0.23 sec E/E' med: 6.9 135.1 cm/sec 348.4 cm/sec2 Ao max P.3mmHg Ao mean P.1 mmHg Ao V2 mean: 96.1 cm/sec Ao V2 VTI: 24.9cm SHARMILA(I,D): 2.9cm2 SHARMILA(V,D): 2.9cm2 __ LV V1 max PG: TV max PG: TR max fritz: 6.2 mmHg 22.0 mmHg 232.1 cm/sec LV V1 mean PG: TR max P.6 mmHg 3.6 mmHg RAP systole: 3.0 mmHg LV V1 mean: 89.0 cm/sec LV V1 VTI: 22.6 cm Transcribed By: SCV Performed At: 06/24/23 0752 Signed By: Rakan Haywood MD 06/24/23 1221 us Frida Garsia MD CV ECHO PROCEDURES Final Res ult documented in this encounter Visit Diagnoses Not on filedocumented in this encounter Care Teams Bottom Sander Relationship Specialty Start Date End Date Frida Garsia MD [address] [place] [address] PCP - General Family Medicine 09/29/22 Frida Garsia MD [address] [place] [address] PCP - Medical [place] [employer] 10/31/18 05/02/99 documented as of this encounter
--- OUTSIDE RECORDS SUMMARY | 2024-11-11 09:59 | XMS_ITS | Encounter Summary ---
Author Organization [facility] Address [address] [place] [address] Care Team Providers Care Tenter Frame Back Tender Name Role Phone Frida Garsia MD Primary Care Provider [phone] Frida Garsia MD Unavailable [phone] Encounter Details Date Type Department Care Team (Late st Contact Info) Description 02/24/2024 External Result Encounter [facility] External Department Unsolicited Frida Garsia MD [address] [place] [address] Social History Tobacco Use Types [...] any clubs o r organizations such as mandaen groups, unions, fraternal or athletic groups, or [...] and heating? Not hard at all 09/30/2022 [facility] Occupat ional Health - Occupational Stress [...] place to sleep or slept in a jail (including now)? No 09/30/2022 Comments No Sex and Gender Information Value Date Recorded Sex Assigned at Not on file Legal Sex Female 7:12 PM EDT Gender Identity Not on file Sexual Orientation Not on file documented as of this encounter Plan of Treatment Not on file documented as of this encounter Procedures Procedure Name Priority Date/Time Associated Diagnosis Comments STRESS TEST ONLY 02/24/2024 4:37 PM EDT documented in this encounter Results * Stress test (02/24/2024 4:37 PM EDT) Anatomical Region Laterality Modality Heart Other 02/24/2024 4:37 PM EDT Narrative 02/25/2024 3:01 PM EDT [facility] [place] [address] Cardiac Stress Test Signed Patient: Socorro Raphael MR#: [id number] : 1980 Acct:[id number] Age/Sex: 43 / F ADM Date: 02/24/24 Loc: Room: Type: [facility] Attending Dr: Frida Garsia MD Copies to: [...] Mayank Gutierrez MD 02/24/24 1637 Signed By: <Electronically signed by MD Mayank Gutierrez> 02/25/24 1501 Procedure Note Mayank Gutierrez MD - 02/25/2024 [facility] [place] [address] Cardiac Stress Test Signed Patient: Socorro Raphael LMR#: [id number] : 1980Acct:[id number] Age/Sex: 43 / FADM Date: 02/24/24 Loc: Room:Type: [facility] Attending Dr: Frida Garsia MD Copies to: MD Myaank Singleton MD Ordering Provider: Frida Garsia MD Date of Service: 02/24/24 STR/STR cardiac stress/regular: SOB, HTN REFERRING PHYSICIAN: Frida Garsia MD PROCEDURE: The patient underwent graded exercise stress test with theBruce protocol. The patient was able to exercise for a 7 minutes 44 seconds, achieving workload of 9.6METS Maximum heart rate was 105 beats per minute, corresponding to 87% of maximum predicted heartrate. Maximum blood pressure was 168/82. No chest pain was reported. Blood pressure andheart response to exercise was physiologic. Baseline ECG showed normal sinus rhythm. No ST changes.Following exercise, no changes were seen. CONCLUSION: 1. Graded exercise stress test without diagnostic ST-T changes forischemia. 2. No provoked chest pain or arrhythmia. 3. Appropriate hemodynamic response to exercise. 4. Good exercise tolerance. 5. Normal heart recovery phase. 6. No previous study available for comparison. Transcribed By: NTS 02/25/24 0808 Dictated By: Mayank Gutierrez MD 02/24/24 1637 Signed By: <Electronically signed by MD Mayank Gutierrez> 02/25/24 1501 us Frida Garsia MD CV STRESS PROCEDURES Final R esult documented in this encounter Visit Diagnoses Not on filedocumented in this encounter Care Teams Tenter Frame Back Tender Relationship Specialty Start Date End Date Frida Garsia MD [address] [place] [address] PCP - General Family Medicine 09/29/22 Frida Garsia MD [address] [place] [address] PCP - Medical [place] [employer] 10/31/18 05/02/99 documented as of this encounter
--- OUTSIDE RECORDS SUMMARY | 2024-11-11 09:59 | XMS_ITS | Encounter Summary ---
Author Organization [facility] Address [address] [place] [address] Phone Care Team Providers Care Medical Data Analyst Name Role Phone Unavailable Primary Care Provider Unavailabl e Encounter Details Date Type Department Care Team (Late st Contact Info) Description 02/24/2024 Scanned Document [facility] [address] [place] [address] Scanning, Generic Provider Social History Tobacco Use Types Packs/Day Years [...] Priority Date/Time Associated Diagnosis Comments STRESS TEST - ONBASE SCAN 02/24/2024 documented in this encounter Results * Stress Test - Onbase Scan (02/24/2024) Narrative 02/24/2024 Ordered by an unspecified provider. us Generic Provider Scanning CV STRESS PROCEDURES F inal Result documented in this encounter Visit Diagnoses Not on filedocumented in this encounter
--- OUTSIDE RECORDS SUMMARY | 2024-11-11 09:59 | XMS_ITS | Encounter Summary ---
Author Organization [facility] Address [address] [place] [address] Care Team Providers Care Camera Supervisor Name Role Phone Frida Garsia MD Primary Care Provider [phone] Frida Garsia MD Unavailable [phone] Encounter Details Date Type Department Care Team (Late st Contact Info) Description 06/28/2024 Abstract [facility] [address] [place] [phone] Frida Garsia MD [address] [place] [address] Social History Tobacco Use Types [...] How often do you attend chur or anabaptist services? Never 09/30/2022 Do you belong to any clubs o r organizations such as hindu groups, unions, fraternal or athletic groups, or [...] and heating? Not hard at all 09/30/2022 [facility] of Occupat ional [facility] - Occupational Stress Questionnaire Answer [...] place to sleep or slept in a group home (including now)? No 09/30/2022 Comments No Sex and Gender Information Value Date Recorded Sex Assigned at Not on file Legal Sex Female 7:12 PM EDT Gender Identity Not on file Sexual Orientation Not on file documented as of this encounter Plan of Treatment Not on file documented as of this encounter Visit Diagnoses Not on filedocumented in this encounter Care Teams Camera Supervisor Relationship Specialty Start Date End Date Frida Garsia MD [address] [place] [address] PCP - General Family Medicine 09/29/22 Frida Garsia MD [address] [place] [address] PCP - Medical [place] [employer] 10/31/18 05/02/99 documented as of this encounter
--- OUTSIDE RECORDS SUMMARY | 2024-11-11 09:59 | XMS_ITS | Encounter Summary ---
Author Organization [facility] Address [address] [facility] [place] [address] Care Team Providers Care Bilingual Counter Sales Retail Name Role Phone Frida Garsia MD Primary Care Provider [phone] Frida Garsia MD Unavailable [phone] Encounter Details Date Type Department Care Team (Late st Contact Info) Description 11/01/2023 Orders Only [facility] [address] [place] [address] Trinity Devi LPN [address] [place] [address] Social History Tobacco Use Types Packs/Day Years [...] often do you attend chur ch or jainism services? Never 09/30/2022 Do you belong to any clubs o r organizations such as jehovah's witness groups, unions, fraternal or athletic groups, or [...] and heating? Not hard at all 09/30/2022 [facility] - Occupational Stress Questionnaire Answer Date Recorded [...] place to sleep or slept in a detention (including now)? No 09/30/2022 Comments Unknown Sex [...] PAP SMEAR Routine 11/08/2023 12:00 AM EDT PAP SMEAR Routine 03/06/2022 12:00 AM EDT documented in this encounter Results * Pap Smear (11/08/2023 12:00 AM EDT) Swab Cervical swab / Unknown Simeon Nurse [facility] Ob LAB CYTOLOGY ORDERABLES Final Result EXTERNAL LAB * Pap Smear (03/06/2022 12:00 AM EDT) Swab Cervical swab / Unknown Simeon Nurse [facility] Ob LAB CYTOLOGY ORDERABLES Final Result EXTERNAL LAB documented in this encounter Visit Diagnoses Not on filedocumented in this encounter Care Teams Bilingual Counter Sales Retail Relationship Specialty Start Date End Date Frida Garsia MD [address] [place] [address] PCP - General Family Medicine 09/29/22 Frida Garsia MD [address] [place] [address] PCP - Medical [place] [employer] 10/31/18 05/02/99 documented as of this encounter
--- OUTSIDE RECORDS SUMMARY | 2024-11-11 09:59 | XMS_ITS | Encounter Summary ---
Author Organization [facility] Address [address] [place] [address] Phone Care Team Providers Care Billing Representative Name Role Phone Unavailable Primary Care Provider Unavailabl e Encounter Details Date Type Department Care Team (Late st Contact Info) Description 06/24/2023 Scanned Document [facility] [address] [place] [address] Scanning, Generic Provider Social History [...] Procedure Name Priority Date/Time Associated Diagnosis Comments ECHOCARDIOGRAM 06/24/2023 documented in this encounter Results * ECHOCARDIOGRAM (06/24/2023) Narrative 06/24/2023 Ordered by an unspecified provider. us Generic Provider Scanning CV ECHO PROCEDURES Fin al Result documented in this encounter Visit Diagnoses Not on filedocumented in this encounter
--- OUTSIDE RECORDS SUMMARY | 2024-11-11 09:59 | XMS_ITS | Encounter Summary ---
Author Organization [facility] Address [address] [place] [address] Care Team Providers Care Laborer Tanbark Name Role Phone Frida Garsia MD Primary Care Provider [phone] Frida Garsia MD Unavailable [phone] Encounter Details Date Type Department Care Team (Late st Contact Info) Description 07/06/2023 Orders Only [facility] [address] [place] [phone] Frida Garsia MD [address] [place] [address] Social History Tobacco Use Types [...] How often do you attend chur or religion services? Never 09/30/2022 Do you belong to any clubs o r organizations such as taoism groups, unions, fraternal or athletic groups, or [...] and heating? Not hard at all 09/30/2022 [facility] of Occupat ional Health - Occupational Stress [...] place to sleep or slept in a alf (including now)? No 09/30/2022 Comments Unknown Sex and Gender Information Value Date Recorded Sex Assigned at Not on file Legal Sex Female 7:12 PM EDT Gender Identity Not on file Sexual Orientation Not on file documented as of this encounter Plan of Treatment Not on file documented as of this encounter Procedures Procedure Name Priority Date/Time Associated Diagnosis Comments MAMMOGRAM, BILATERAL, SCREEN:* Routine 07/05/2023 11:53 AM EST documented in this encounter Results * MAMMOGRAM, BILATERAL, SCREEN:* (07/05/2023 11:53 AM EST) Anatomical Region Laterality Modality Radiographic Esther ging us Frida Garsia MD IMG XR PROCEDURES Final Resu lt documented in this encounter Visit Diagnoses Not on filedocumented in this encounter Care Teams Laborer Tanbark Relationship Specialty Start Date End Date Frida Garsia MD [address] [place] [address] PCP - General Family Medicine 09/29/22 Frida Garsia MD [address] [place] [address] PCP - Medical [place] [employer] 10/31/18 05/02/99 documented as of this encounter
--- OUTSIDE RECORDS SUMMARY | 2024-11-11 09:59 | XMS_ITS | Encounter Summary ---
Author Organization [facility] Address [address] [place] [address] Care Team Providers Care Locker Room Clerk Name Role Phone Frida Garsia MD Primary Care Provider [phone] Frida Garsia MD Unavailable [phone] Encounter Details Date Type Department Care Team (Late st Contact Info) Description 04/12/2023 Orders Only [facility] [address] [place] [phone] Frida Garsia MD [address] [place] [address] Social History Tobacco Use Types [...] How often do you attend chur or quaker services? Never 09/30/2022 Do you belong to any clubs o r organizations such as islam groups, unions, fraternal or athletic groups, or [...] and heating? Not hard at all 09/30/2022 [facility] of Occupat ional Health - Occupational Stress [...] place to sleep or slept in a fdc (including now)? No 09/30/2022 Comments Unknown Sex and Gender Information Value Date Recorded Sex Assigned at Not on file Legal Sex Female 7:12 PM EDT Gender Identity Not on file Sexual Orientation Not on file documented as of this encounter Plan of Treatment Not on file documented as of this encounter Procedures Procedure Name Priority Date/Time Associated Diagnosis Comments HM COLONOSCOPY Routine 04/09/2023 8:52 AM EST documented in this encounter Results * Hm Colonoscopy (04/09/2023 8:52 AM EST) Anatomical Region Laterality Modality Other us Frida Garsia MD HEALTH MAINTENANCE Final Res ult documented in this encounter Visit Diagnoses Not on filedocumented in this encounter Care Teams Locker Room Clerk Relationship Specialty Start Date End Date Frida Garsia MD [address] [place] [address] PCP - General Family Medicine 09/29/22 Frida Garsia MD [address] [place] [address] PCP - Medical [place] [employer] 10/31/18 05/02/99 documented as of this encounter
--- OUTSIDE RECORDS SUMMARY | 2024-11-11 09:59 | XMS_ITS | Encounter Summary ---
Author Organization [facility] Address [address] [facility] [place] [address] Care Team Providers Care Selector Packer Name Role Phone Frida Garsia MD Primary Care Provider [phone] Frida Garsia MD Unavailable [phone] Encounter Details Date Type Department Care Team (Late st Contact Info) Description 11/09/2024 Bamboo flowsheet [facility] [address] [place] [phone] Chandan Hendrix, DO [address] [place] [id number] Social History Tobacco Use Types Packs/Day Years [...] often do you attend chur ch or adventist services? Never 09/30/2022 Do you belong to any clubs o r organizations such as catholic groups, unions, fraternal or athletic groups, or [...] and heating? Not hard at all 09/30/2022 [facility] of Occupat ional Health - Occupational Stress [...] place to sleep or slept in a correction (including now)? No 09/30/2022 Comments No Sex and Gender Information Value Date Recorded Sex Assigned at Not on file Legal Sex Female 7:12 PM EDT Gender Identity Not on file Sexual Orientation Not on file documented as of this encounter Plan of Treatment Not on file documented as of this encounter Visit Diagnoses Not on filedocumented in this encounter Care Teams Selector Packer Relationship Specialty Start Date End Date Frida Garsia MD [address] [place] [address] PCP - General Family Medicine 09/29/22 Frida Garsia MD [address] [place] [address] PCP - Medical [place] [employer] 10/31/18 05/02/99 documented as of this encounter
--- OUTSIDE RECORDS SUMMARY | 2024-11-11 09:59 | XMS_ITS | Encounter Summary ---
Author Organization [facility] Address [address] [place] [address] Care Team Providers Care Plywood Factory Worker Name Role Phone Frida Garsia MD Primary Care Provider [phone] Frida Garsia MD Unavailable [phone] Encounter Details Date Type Department Care Team (Late st Contact Info) Description 11/09/20[address] [facility] [address] [place] [address] Domenica Tim LPN Social History Tobacco Use Types Packs/Day Years [...] often do you attend chur ch or religion services? Never 09/30/2022 Do you belong to any clubs o r organizations such as spiritism groups, unions, fraternal or athletic groups, or [...] and heating? Not hard at all 09/30/2022 [facility] of Occupat ional Health - Occupational Stress [...] on file documented as of this encounter Miscellaneous Notes * Telephone Encounter - Domenica iTm LPN - 11/09/2024 9:06 AM EDT Notify Cathi Boland That pt is unable to get mammogram scheduled--called 5 times, left msgs and no return call. documented in this encounter Plan of Treatment Not on file documented as of this encounter Visit Diagnoses Not on filedocumented in this encounter Care Teams Plywood Factory Worker Relationship Specialty Start Date End Date Frida Garsia MD [address] [place] [address] PCP - General Family Medicine 09/29/22 Frida Garsia MD [address] [place] [address] PCP - Medical [place] [employer] 10/31/18 05/02/99 documented as of this encounter
[2024-11-11 10:44] LABS: Hematocrit 38.7 % (36.0-48.0); Hemoglobin 13.0 g/dL (12.0-16.0); Mean Corpuscular HGB Conc 33.6 g/dL (29.9-35.2); Mean Corpuscular Hemoglobin 31.3 pg (26.7-34.0); Mean Corpuscular Volume 93.0 fL (81.0-99.0); Platelet Count 274 10^3/uL (150-450); Red Blood Count 4.16 10^6/uL (4.20-5.40); White Blood Count 5.0 10^3/uL (4.0-11.0)
[2024-11-11 11:12] LABS: Alanine Aminotransferase 26 U/L (14-59); Albumin Globulin Ratio 1.0; Albumin Level 3.4 g/dL (3.4-5.0); Alkaline Phosphatase 84 U/L (46-116); Anion Gap 14.2; Aspartate Amino Transferase 17 U/L (15-37); Blood Urea Nitrogen 15.0 mg/dL (7.0-18.0); Calcium 8.5 mg/dL (8.5-10.1); Carbon Dioxide 25.2 mmol/L (21.0-32.0); Chloride 107 mmol/L (98-107); Cholesterol 77 mg/dL (<=200); Estimated GFR (African America >60 (>=60 mL/min/1.73m^2); Estimated GFR (Non-African Ame >60 (>=60 mL/min/1.73m^2); Globulin 3.5 g/dL; Glucose 88 mg/dL (74-106); HDL Cholesterol 33 mg/dL (40-60); Potassium 4.4 mmol/L (3.5-5.1); Sodium 142 mmol/L (136-145); Thyroid Stimulating Hormone 1.835 uIU/mL (0.358-3.740); Total Protein 6.9 g/dL (6.4-8.2); Triglycerides 48 mg/dL (<=150); VLDL CHOLESTEROL 9.6 mg/dL
== END 2024-11-11 09:56 | disposition home or self-care (01) ==
LOC: LAB 09:56
PROVIDERS: PCP Family Medicine; Visit Provider Family Medicine
DX: I65.22 Occlusion and stenosis of left carotid artery (principal); I10 Essential (primary) hypertension
CPT/HCPCS: 36415; 80053; 80061; 84443; 85027

== ENCOUNTER 2024-12-05 17:09 | Outpatient (OUT) | payer OTHER, SELFPAY ==
--- NOTE | 2024-12-05 17:11 | MM_ITS ---
Patient Name: BRANDON BENAVIDEZ MR#: [id number] : 1980 Exam Date: 12/05/2024 Ordering Doctor: DR SUSAN US . RADIOLOGY REPORT PROCEDURE: MM TOMOSYNTHESIS SCREENING BI COMPARISON: MM TOMOSYNTHESIS SCREENING BI, 07/05/2023. MG MAMM LEANDRO DIAG W CAD, 01/04/2020. INDICATIONS: Screening for malignant neoplasm Calculator Name NCI Breast Cancer Risk Assessment Tool 5 Year Breast Cancer Risk 0.60% Lifetime Breast Cancer Risk 8.80% Personal Breast Cancer No Personal Ovarian Cancer No Treatments None Family Cancers Aunt-maternal with breast cancer at age ~42; Mother with lung cancer at age 52; Aunt-maternal with lung cancer at age 49. LOCATION: [facility] BREAST COMPOSITION: The breasts are heterogeneously dense, which may obscure small masses. FINDINGS: DIAGNOSTIC CATEGORY 1--NEGATIVE. RIGHT BREAST: No significant suspicious finding. LEFT BREAST: No significant suspicious finding. RECOMMENDATIONS: ROUTINE MAMMOGRAM AND CLINICAL EVALUATION IN 12 MONTHS. PLEASE NOTE: A NORMAL MAMMOGRAM DOES NOT EXCLUDE THE POSSIBILITY OF BREAST CANCER. A CLINICALLY SUSPICIOUS PALPABLE LUMP SHOULD BE BIOPSIED. Dictated by: Juan M Henderson DO on 12/06/2024 at 15:20 Approved by: Juan M Henderson DO on 12/06/2024 at 15:20
--- OUTSIDE RECORDS SUMMARY | 2024-12-05 17:11 | XMS_ITS | Encounter Summary ---
Author Organization [facility] Address [address] [place] [address] Care Team Providers Care Electrical Timing Device Calibrator Name Role Phone Frida Garsia MD Primary Care Provider [phone] Frida Garsia MD Unavailable [phone] Encounter Details Date Type Department Care Team (Late st Contact Info) Description 04/15/2023 Abstract [facility] [address] [place] [address] Frida Garsia MD [address] [place] [address] Social History Tobacco Use Types [...] How often do you attend chur or congregation services? Never 09/30/2022 Do you belong to any clubs o r organizations such as caodaism groups, unions, fraternal or athletic groups, or [...] and heating? Not hard at all 09/30/2022 [facility] of Occupat ional Health - Occupational Stress [...] on filedocumented in this encounter Care Teams Electrical Timing Device Calibrator Relationship Specialty Start Date End Date Frida Garsia MD [address] [place] [address] PCP - General Family Medicine 09/29/22 Frida Garsia MD [address] [place] [address] PCP - Medical [place] [employer] 10/31/18 05/02/99 documented as of this encounter
--- OUTSIDE RECORDS SUMMARY | 2024-12-05 17:11 | XMS_ITS | Encounter Summary ---
Author Organization [facility] Address [address] [place] [address] Phone Care Team Providers Care Human Services Case Manager Name Role Phone Unavailable Primary Care Provider Unavailabl e Encounter Details Date Type Department Care Team (Late st Contact Info) Description 02/24/2024 Scanned Document [facility] [address] [place] [address] Scanning, Generic Provider Social History [...]
--- OUTSIDE RECORDS SUMMARY | 2024-12-05 17:11 | XMS_ITS | Encounter Summary ---
Author Organization [facility] Address [address] [place] [address] Care Team Providers Care Vacuum Truck Driver Name Role Phone Frida Garsia MD Primary Care Provider [phone] Frida Garsia MD Unavailable [phone] Encounter Details Date Type Department Care Team (Late st Contact Info) Description 02/24/2024 External Result Encounter [facility] External Department Unsolicited Frida Garsia MD [address] [place] [address] Social History Tobacco Use Types [...] often do you attend chur ch or spiritism services? Never 09/30/2022 Do you belong to any clubs o r organizations such as yazidism groups, unions, fraternal or athletic groups, or [...] PM EDT Narrative 02/25/2024 3:01 PM EDT [facility] [place] [address] Cardiac Stress Test Signed Patient: Socorro Raphael MR#: [id number] : 1980 Acct:[id number] Age/Sex: 43 / F ADM Date: 02/24/24 Loc: Room: Type: [facility] Attending Dr: Frida Garsia MD Copies [...] Procedure Note Mayank Gutierrez MD - 02/25/2024 [facility] [address] Cardiac Stress Test Signed Patient: Socorro Raphael LMR#: [id number] : 1980Acct:[id number] Age/Sex: 43 / FADM Date: 02/24/24 Loc: Room:Type: [facility] Attending Dr: Frida Garsia MD Copies [...] on filedocumented in this encounter Care Teams Vacuum Truck Driver Relationship Specialty Start Date End Date Frida Garsia MD [address] [place] [address] PCP - General Family Medicine 09/29/22 Frida Garsia MD [address] [place] [address] PCP - Medical [place] [employer] 10/31/18 05/02/99 documented as of this encounter
--- OUTSIDE RECORDS SUMMARY | 2024-12-05 17:11 | XMS_ITS | Encounter Summary ---
Author Organization [facility] Address [address] [place] [address] Care Team Providers Care Employment Services Director Name Role Phone Frida Garsia MD Primary Care Provider [phone] Frida Garsia MD Unavailable [phone] Encounter Details Date Type Department Care Team (Late st Contact Info) Description 10/14/2023 Orders Only [facility] [address] [place] [address] System, Provider Not In Social History Tobacco [...] often do you attend chur ch or scientology services? Never 09/30/2022 Do you belong to any clubs o r organizations such as faith groups, unions, fraternal or athletic groups, or [...] and heating? Not hard at all 09/30/2022 [facility] of Occupat ional Health - [...] a jail (including now)? No 09/30/2022 Comments Unknown Sex [...] on filedocumented in this encounter Care Teams Employment Services Director Relationship Specialty Start Date End Date Frida Garsia MD [address] [place] [address] PCP - General Family Medicine 09/29/22 Frida Garsia MD [address] [place] [address] PCP - Medical [place] [employer] 10/31/18 05/02/99 documented as of this encounter
--- OUTSIDE RECORDS SUMMARY | 2024-12-05 17:11 | XMS_ITS | Encounter Summary ---
Author Organization [facility] Address [address] [place] [address] Care Team Providers Care Chair Car Attendant Name Role Phone Frida Garsia MD Primary Care Provider [phone] Frida Garsia MD Unavailable [phone] Encounter Details Date Type Department Care Team (Late st Contact Info) Description 11/01/2023 Orders Only [facility] [address] [place] [phone] Trinity Devi LPN [address] [place] [address] Social History Tobacco Use Types [...] any clubs o r organizations such as latter-day groups, unions, fraternal or athletic groups, or [...] and heating? Not hard at all 09/30/2022 [facility] of Occupat ional Health - Occupational Stress [...] group home (including now)? No 09/30/2022 Comments Unknown [...] Swab Cervical swab / Unknown Simeon Nurse [facility] Ob LAB CYTOLOGY ORDERABLES Final Result EXTERNAL LAB * Pap Smear (03/06/2022 12:00 AM EDT) Swab Cervical swab / Unknown Simeon Nurse [facility] Ob LAB CYTOLOGY ORDERABLES Final Result EXTERNAL LAB documented in this encounter Visit Diagnoses Not on filedocumented in this encounter Care Teams Chair Car Attendant Relationship Specialty Start Date End Date Frida Garsia MD [address] [place] [address] PCP - General Family Medicine 09/29/22 Frida Garsia MD [address] [place] [address] PCP - Medical [place] [employer] 10/31/18 05/02/99 documented as of this encounter
--- OUTSIDE RECORDS SUMMARY | 2024-12-05 17:11 | XMS_ITS | Encounter Summary ---
Author Organization [facility] Address [address] [place] [address] Phone Care Team Providers Care Principal Scientist Name Role Phone Unavailable Primary Care Provider Unavailabl e Encounter Details Date Type Department Care Team (Late st Contact Info) Description 06/24/2023 Scanned Document [facility] [address] [place] [address] Scanning, Generic Provider Social History [...]
--- OUTSIDE RECORDS SUMMARY | 2024-12-05 17:11 | XMS_ITS | Encounter Summary ---
Author Organization [facility] Address [address] [place] [address] Care Team Providers Care Ordering Machine Operator Name Role Phone Frida Garsia MD Primary Care Provider [phone] Frida Garsia MD Unavailable [phone] Encounter Details Date Type Department Care Team (Late st Contact Info) Description 06/24/2023 External Result Encounter [facility] External Department Unsolicited Frida Garsia MD [address] [place] [address] Social History Tobacco Use Types [...] and heating? Not hard at all 09/30/2022 [facility] Occupat ional Health - Occupational Stress [...] place to sleep or slept in a custodial (including now)? No 09/30/2022 Comments Unknown Sex [...] AM EST Narrative 06/24/2023 12:22 PM EST [facility] [place] [address] Echocardiogram Signed Patient: Socorro Raphael MR#: [id number] : 1980 Acct:[id number] Age/Sex: 42 / F ADM Date: 06/24/23 Loc: Room: Type: [facility] Attending Dr: Frida Garsia MD Ordering Provider: [...] Procedure Note Sridhar Haywood MD - 06/25/2023 [facility] Main [place] [address] [place] [address] Echocardiogram Signed Patient: Socorro Raphael LMR#: [id number] : 1980Acct:[id number] Age/Sex: 42 / FADM Date: 06/24/23 Loc: Room:Type: [facility] Attending Dr: Frida Garsia MD Ordering Provider: [...] on filedocumented in this encounter Care Teams Ordering Machine Operator Relationship Specialty Start Date End Date Frida Garsia MD [address] [place] [address] PCP - General Family Medicine 09/29/22 Frida Garsia MD [address] [place] [address] PCP - Medical [place] [employer] 10/31/18 05/02/99 documented as of this encounter
--- OUTSIDE RECORDS SUMMARY | 2024-12-05 17:11 | XMS_ITS | Encounter Summary ---
Author Organization [facility] Address [address] [place] [address] Care Team Providers Care Hadoop Analyst Name Role Phone Frida Garsia MD Primary Care Provider [phone] Frida Garsia MD Unavailable [phone] Encounter Details Date Type Department Care Team (Late st Contact Info) Description 06/28/2024 Abstract [facility] [address] [place] [address] Frida Garsia MD [address] [place] [address] Social History Tobacco Use Types [...] How often do you attend chur or christianity services? Never 09/30/2022 Do you belong to any clubs o r organizations such as bahai groups, unions, fraternal or athletic groups, or [...] and heating? Not hard at all 09/30/2022 [facility] [place] of Occupat ional Health - Occupational Stress [...] place to sleep or slept in a mcfp (including now)? No 09/30/2022 Comments No Sex and Gender Information Value Date Recorded Sex Assigned at Not on file Legal Sex Female 7:12 PM EDT Gender Identity Not on file Sexual Orientation Not on file documented as of this encounter Plan of Treatment Not on file documented as of this encounter Visit Diagnoses Not on filedocumented in this encounter Care Teams Hadoop Analyst Relationship Specialty Start Date End Date Frida Garsia MD [address] [place] [address] PCP - General Family Medicine 09/29/22 Frida Garsia MD [address] [place] [address] PCP - Medical [place] [employer] 10/31/18 05/02/99 documented as of this encounter
--- OUTSIDE RECORDS SUMMARY | 2024-12-05 17:11 | XMS_ITS | Clinical Summary ---
Author Organization [facility] Address [address] [place] [address] Care Team Providers Care Float Tender Name Role Phone Frida Garsia MD Primary Care Provider [phone] Frida Garsia MD Unavailable [phone] Allergies No known active allergies Medications acyclovir (Zovirax) 5 % ointmentIndication s:Cold sore Apply topically 6 (six) times a day. Space applications every 3 hours. 30 g 3 03/01/20 23 Active aspirin 81 MG EC tablet Take 81 mg by mouth 1 (one) time each day at the same time Active valACYclovir (Valtrex) 1 g tabletIndications: Cold sore TAKE 1 TABLET BY MOUTH EVERY 12 HOURS 180 tablet 2 10/14/19 24 Active dicyclomine (Bentyl) 20 MG tabletIndications: Nausea,Flatulence/ gas pain/belching,Diar justin, unspecified type,Abdominal bloating with cramps Take 1 tablet (20 mg) by mouth 3 (three) times a day as needed (abdominal cramping) 21 tablet 12/09/19 24 Active LORazepam (Ativan) 1 MG tabletIndications: Anxiety Take 1 tablet (1 mg) by mouth every 8 (eight) hours if needed for anxiety 30 tablet 01/04/20 24 Active fluticasone-salmet fawn (Advair HFA) 230-21 MCG/ACT inhalerIndications :Mild persistent asthma without complication (HCC) Inhale 2 puffs in the morning and 2 puffs before bedtime. Rinse mouth with water after use to reduce aftertaste and incidence of candidiasis. Do not swallow.. 12 g 3 04/04/20 24 025 Active olmesartan (BENIcar) 5 MG tabletIndications: Hypertension, unspecified type TAKE 1 TABLET BY MOUTH EVERY DAY 90 tablet 1 06/28/19 25 Active ibuprofen 800 MG tabletIndications: Other chronic pain TAKE 1 TABLET BY MOUTH THREE TIMES A DAY NEEDED FOR MILD PAIN 90 tablet 1 07/29/19 25 Active busPIRone (Buspar) 5 MG tabletIndications: Anxiety TAKE 1 TABLET BY MOUTH IN THE MORNING AND BEFORE BEDTIME 180 tablet 1 08/03/19 25 Active atorvastatin (Lipitor) 40 MG tabletIndications: Hyperlipidemia, unspecified hyperlipidemia type TAKE 1 TABLET BY MOUTH EVERY DAY 90 tablet 10/24/19 25 Active varenicline (Chantix) 1 MG tablet Take 1 mg by mouth 07/01/19 24 025 Discontin ued(Other ) Active Problems Problem Noted Date Diagnosed Date [...] is asking that [facility] be done at [facility]. I will also check a baseline [...] Encounters Date Type Department Care Team Description 11/15/2024 Orders Only [facility] [address] [place] [address] Debbie Ward MA 11/13/2024 Orders Only [facility] [address] [place] [address] Frida Garsia MD 11/09/2024 8:30 AM EDT Office Visit [facility] [address] [place] [address] Chandan Hendrix, Well woman exam with routine gynecological exam; Breast cancer screening by mammogram 11/09/2024 Clinisync Result Encounter [facility] External Department Unsolicited Chandan Hendrix DO 11/09/2024 Telephone [facility] [address] [place] [address] Domenica Tim LPN 11/09/2024 Bamboo flowsheet [facility] [address] [place] [address] Chandan Hendrix DO 11/02/2024 Travel 10/23/2024 Refill [facility] [place] [id number] [place] [address] Frida Garsia MD Hyperlipidemia, unspecified hyperlipidemia type ; Hypertension, unspecified type from Last 3 Months Immunizations Immunization Administration Dates Next Due Influenza, seasonal, intradermal, preservative f ree 02/16/2013 Novel [id number], preservative-free 05/12,05/03/2009 Tetanus toxoid, adsorbed 08/09/2003 Family [...] often do you attend chur ch or evangelical services? Never 09/30/2022 Do you belong to any clubs o r organizations such as mormon groups, unions, fraternal or athletic groups, or [...] and heating? Not hard at all 09/30/2022 [facility] - Occupational Stress Questionnaire Answer Date [...] place to sleep or slept in a long-term (including now)? No 09/30/2022 Comments No Sex [...] Cervical Cancer Screening Discontinued Pap Smear Discontinued 11/09/2024, 11/08/2023, 08/2021 HPV/Cotest Discontinued Procedures Procedure Name Priority Date/Time Associated Diagnosis Comments CBC (INCLUDES DIFF/PLT) Routine 11/11/2024 4:54 PM EDT IGP,APTIMA HPV,AGE GDLN Routine 11/09/2024 8:22 AM EDT PAP SMEAR Routine 11/09/2024 12:00 AM EDT MAMMOGRAM, BILATERAL, SCREEN:* Routine 07/05/2023 11:53 AM EST from Last 3 Months or Most Recently Relevant to Health Maintenance Results * CBC and differential (11/11/2024 4:54 PM EDT) Blood Venous blood specimen / Unknown us Frida Garsia MD LAB BLOOD ORDERABLES Final R esult * IGP,APTIMA HPV,AGE GDLN (11/09/2024 8:22 AM EDT) AGE GDLN ACOG TESTING Note . TB Comment: TESTS RESULT FLAG UNITS REF RANGE LAB Clinician Provided Cytology Information Source.............Vagina No. of containers..01 ThinPrep Vial Age Gabi JUAREZOG Mildred... 31 01 FLAG LEGEND: L-Low Normal,H-High Normal,LL-Alert Low,HH-Alert High <-Panic Low,>-Panic High,A-Abnormal,AA-Critical Abnormal Performed at: 01 [facility] [address] [place] [address] Hope Fitch MD, IGP, APTIMA HPV, RFX [birth year] Note . [facility] Comment: TESTS RESULT FLAG UNITS REF RANGE LAB DIAGNOSIS: 02 NEGATIVE FOR INTRAEPITHELIAL LESION OR MALIGNANCY. THIS SPECIMEN WAS RESCREENED PART OF OUR INTERVENTION ANALYST PROGRAM. Specimen adequacy: 02 Satisfactory for evaluation. Performed by: 02 Lashawn Bob, Manager Research ([facility]) QC reviewed by: 02 Tosha Medrano, Supervisory Manager Research ([facility]) . 02 Note: Note 02 The Pap smear is a screening test designed to aid in the detection of premalignant and malignant conditions of the uterine cervix. It is not a diagnostic procedure and should not be used as the sole means of detecting cervical cancer. Both false-positive and false-negative reports do occur. Test Methodology: Note 02 This liquid based ThinPrep(R) pap test was screened with the use of an image guided system. HPV Genotype Reflex Note 02 Criteria not met, HPV Genotype not performed. FLAG LEGEND: L-Low Normal,H-High Normal,LL-Alert Low,HH-Alert High <-Panic Low,>-Panic High,A-Abnormal,AA-Critical Abnormal Performed at: [address] [address] Hope Fitch MD, HPV APTIMA Negative Negative [facility] Comment: This nucleic acid amplification test detects fourteen high- risk HPV types (16,18,31,33,35,39,45,51,52,56,58,59,66,68) without differentiation. Performed at: =[address] [id number] Cellar Packer: Hope Fitch MD, Phone: [phone] Performed at: [address] [id number] Cellar Packer: Hope Fitch MD, Phone: [phone] 11/09/2024 8:22 AM EDT 11/09/2024 12:41 PM EDT Narrative JOSÉ - 11/14/2024 10:08 AM EDT SPATULA-ALONE VAGINA us Chandan Hendrix DO LAB BLOOD ORDERABLES Final Resul t [facility] * Pap Smear (11/09/2024 12:00 AM EDT) Swab Cervical swab / Unknown us Chandan Hendrix DO LAB CYTOLOGY ORDERABLES Final Re sult EXTERNAL LAB * MAMMOGRAM, BILATERAL, SCREEN:* (07/05/2023 11:53 AM EST) Anatomical Region Laterality Modality Radiographic Esther ging us Frida Garsia MD IMG XR PROCEDURES Final Resu lt from Last 3 Months or Most Recently Relevant to Health Maintenance Insurance [employer] Care Teams Float Tender Relationship Specialty Start Date End Date rFida Garsia MD [address] [place] [address] PCP - General Family Medicine 09/29/22 Frida Garsia MD [address] [place] [address] PCP - Medical [place] [employer] 10/31/18 05/02/99
--- OUTSIDE RECORDS SUMMARY | 2024-12-05 17:11 | XMS_ITS | Encounter Summary ---
Author Organization [facility] Address [address] [place] [address] Care Team Providers Care Dean Of Girls Name Role Phone Frida Garsia MD Primary Care Provider [phone] Frida Garsia MD Unavailable [phone] Encounter Details Date Type Department Care Team (Late st Contact Info) Description 07/06/2023 Orders Only [facility] [address] [place] [address] Frida Garsia MD [address] [place] [address] Social History Tobacco Use Types [...] and heating? Not hard at all 09/30/2022 [facility] of Occupat ional Health - Occupational Stress [...] a mcfp (including now)? No 09/30/2022 Comments Unknown Sex [...] on filedocumented in this encounter Care Teams Dean Of Girls Relationship Specialty Start Date End Date Frida Garsia MD [address] [place] [address] PCP - General Family Medicine 09/29/22 Frida Garsia MD [address] [place] [address] PCP - Medical [place] [employer] 10/31/18 05/02/99 documented as of this encounter
--- OUTSIDE RECORDS SUMMARY | 2024-12-05 17:11 | XMS_ITS | Encounter Summary ---
Author Organization [facility] Address [address] [place] [address] Care Team Providers Care Gas Pump Attendant Name Role Phone Frida Garsia MD Primary Care Provider [phone] Frida Garsia MD Unavailable [phone] Encounter Details Date Type Department Care Team (Late st Contact Info) Description 11/15/2024 Orders Only [facility] [address] [address] Debbie Ward MA [address] [place] [address] Social History Tobacco Use Types Packs/Day Years [...] often do you attend chur ch or sikh services? Never 09/30/2022 Do you belong to any clubs o r organizations such as rastafari groups, unions, fraternal or athletic groups, or [...] and heating? Not hard at all 09/30/2022 [facility] of Occupat ional [facility] - Occupational Stress Questionnaire Answer Date Recorded [...] place to sleep or slept in a halfway (including now)? No 09/30/2022 Comments No Sex and Gender Information Value Date Recorded Sex Assigned at Not on file Legal Sex Female 7:12 PM EDT Gender Identity Not on file Sexual Orientation Not on file documented as of this encounter Plan of Treatment Not on file documented as of this encounter Procedures Procedure Name Priority Date/Time Associated Diagnosis Comments PAP SMEAR Routine 11/09/2024 12:00 AM EDT documented in this encounter Results * Pap Smear (11/09/2024 12:00 AM EDT) Swab Cervical swab / Unknown us Chandan Simeon DO LAB CYTOLOGY ORDERABLES Final Re sult EXTERNAL LAB documented in this encounter Visit Diagnoses Not on filedocumented in this encounter Care Teams Gas Pump Attendant Relationship Specialty Start Date End Date Frida Garsia MD [address] [place] [address] PCP - General Family Medicine 09/29/22 Frida Garsia MD [address] [place] [address] PCP - Medical [place] [employer] 10/31/18 05/02/99 documented as of this encounter
--- OUTSIDE RECORDS SUMMARY | 2024-12-05 17:11 | XMS_ITS | Encounter Summary ---
Author Organization [facility] Address [address] [place] [address] Care Team Providers Care Bed And Breakfast Cook Name Role Phone Frida Garsia MD Primary Care Provider [phone] Frida Garsia MD Unavailable [phone] Encounter Details Date Type Department Care Team (Late st Contact Info) Description 06/24/2023 Orders Only [facility] [address] [place] [address] Frida Garsia MD [address] [place] [address] Social History Tobacco Use Types [...] often do you attend chur ch or congregation services? Never 09/30/2022 Do you belong to any clubs o r organizations such as restoration groups, unions, fraternal or athletic groups, or [...] and heating? Not hard at all 09/30/2022 [facility] of Occupat ional Health - Occupational [...] place to sleep or slept in a snf (including now)? No 09/30/2022 Comments Unknown Sex [...] on filedocumented in this encounter Care Teams Bed And Breakfast Cook Relationship Specialty Start Date End Date Frida Garsia MD [address] [place] [address] PCP - General Family Medicine 09/29/22 Frida Garsia MD [address] [place] [address] PCP - Medical [place] [employer] 10/31/18 05/02/99 documented as of this encounter
--- OUTSIDE RECORDS SUMMARY | 2024-12-05 17:11 | XMS_ITS | Encounter Summary ---
Author Organization [facility] Address [address] [place] [address] Care Team Providers Care Clinical Liaison Name Role Phone Frida Garsia MD Primary Care Provider [phone] Frida Garsia MD Unavailable [phone] Encounter Details Date Type Department Care Team (Late st Contact Info) Description 11/13/2024 Orders Only [facility] [address] [place] [address] Frida Garsia MD [address] [place] [address] Social History Tobacco Use Types [...] often do you attend chur ch or presybeterian services? Never 09/30/2022 Do you belong to any clubs o r organizations such as shinto groups, unions, fraternal or athletic groups, or [...] and heating? Not hard at all 09/30/2022 [facility] of Occupat ional Health - [...] a alf (including now)? No 09/30/2022 Comments No Sex [...] (INCLUDES DIFF/PLT) Routine 11/11/2024 4:54 PM EDT documented in this encounter Results * CBC and differential (11/11/2024 4:54 PM EDT) Blood Venous blood specimen / Unknown us Frida Garsia MD LAB BLOOD ORDERABLES Final R esult documented in this encounter Visit Diagnoses Not on filedocumented in this encounter Care Teams Clinical Liaison Relationship Specialty Start Date End Date Frida Garsia MD [address] [place] [address] PCP - General Family Medicine 09/29/22 Frida Garsia MD [address] [place], [place] [id number] PCP - Medical [place] [employer] 10/31/18 05/02/99 documented as of this encounter
--- OUTSIDE RECORDS SUMMARY | 2024-12-05 17:11 | XMS_ITS | Encounter Summary ---
Author Organization [facility] Address [address] [place] [address] Care Team Providers Care Fire Control Mechanic Name Role Phone Frida Garsia MD Primary Care Provider [phone] Frida Garsia MD Unavailable [phone] Encounter Details Date Type Department Care Team (Late st Contact Info) Description 04/12/2023 Orders Only [facility] [address] [place] [phone] Frida Garsia MD [address] [place] [address] Social History Tobacco Use Types [...] often do you attend chur ch or temple services? Never 09/30/2022 Do you belong to any clubs o r organizations such as taoist groups, unions, fraternal or athletic groups, or [...] and heating? Not hard at all 09/30/2022 [facility] of Occupat ional Health - Occupational [...] place to sleep or slept in a retirement (including now)? No 09/30/2022 Comments Unknown Sex [...] on filedocumented in this encounter Care Teams Fire Control Mechanic Relationship Specialty Start Date End Date Frida Garsia MD [address] [place], [place] [id number] PCP - General Family Medicine 09/29/22 Frida Garsia MD [address] [place] [address] PCP - Medical [place] [employer] 10/31/18 05/02/99 documented as of this encounter
--- OUTSIDE RECORDS SUMMARY | 2024-12-05 17:11 | XMS_ITS | Clinical Summary ---
Author Organization [facility] Address [address] [place] [address] Phone Care Team Providers Care Pulp Grinder Feeder Name Role Phone Unavailable Primary Care Provider [...] of 1 - Stand giovanna series) 1982 Hepatitis C Screening 08/15/1999 Hepatitis B Vaccines (1 of 3 - 19+ 3-dose series) 2000 Cervical Cancer Screening 2002 HPV/Cotest 2002 Pap Smear 2002 DTaP/Tdap/Td Vaccines (1 - Tdap) 08/15/2003 HPV Vaccines (1 - 3-dose sta ndard series) 2008 Mammogram 2021 COVID-19 Vaccine ( - 2023-2 5 season) 2024 Influenza Vaccine (#1) 2025 Zoster Vaccines (1 of 2) 08/15/2031 HIB Vaccines Aged Out No longer eligi ble based on patient's age to complete this topic Hepatitis A Vaccines Aged Out No long [...] this topic Insurance [employer] SU[employer] SU[employer]
--- OUTSIDE RECORDS SUMMARY | 2024-12-05 17:12 | XMS_ITS | Clinical Summary ---
Author Organization [facility] Address [address] [place], [place] [id number] Care Team Providers Care Window Treatment Installer Name Role Phone Frida Garsia MD Primary Care Provider + [phone] Allergies No known active allergies Medications acyclovir [...] is lower risk 4 08/02/2023 Data from: https://www.neighborhoodatlas.medicine.[facility].edu/. Last address used for calculation [address] 08/02/2023 Comments Unknown Sex and [...] Cancer Screening 2002 Mammogram Screening 03/05/2023 03/05/2022 Influenza Vaccine (#1) 2025 3, 05/12/2009, 05/03/2009 Insurance M[employer] PPO Care Teams Window Treatment Installer Relationship Specialty Start Date End Date Frida Garsia MD [address] [place] [address] PCP - General Family Medicine 07/14/23
== END 2024-12-05 17:10 | disposition home or self-care (01) ==
LOC: MAMMO 17:09
PROVIDERS: PCP Family Medicine; Visit Provider Obstetrics & Gynecology
DX: Z12.31 Encounter for screening mammogram for malignant neoplasm of breast (principal); Z80.3 Family history of malignant neoplasm of breast; Z80.1 Family history of malignant neoplasm of trachea, bronchus and lung
CPT/HCPCS: 77063; 77067